=== PATIENT | female | born 1950 | race Caucasian/White ===

== ENCOUNTER → 2019-03-17 13:46 | Outpatient (BNVA) | payer MEDICARE, OTHER, SELFPAY | PROVIDERS: Family Provider Family Medicine; PCP Family Medicine; Visit Provider Internal Medicine Rheumatology | DX: M35.9 Systemic involvement of connective tissue, unspecified (principal); M05.79 Rheumatoid arthritis with rheumatoid factor of multiple sites without organ or systems involvement; Z79.899 Other long term (current) drug therapy; F32.9 Major depressive disorder, single episode, unspecified | CPT/HCPCS: 36415; 80053; 85007; 85027; 99214 ==

== ENCOUNTER → 2019-05-18 12:55 | Outpatient (BNVA) | payer MEDICARE, OTHER, SELFPAY | PROVIDERS: Family Provider Family Medicine; PCP Family Medicine; Visit Provider Internal Medicine Rheumatology | DX: M06.09 Rheumatoid arthritis without rheumatoid factor, multiple sites (principal); Z79.899 Other long term (current) drug therapy | CPT/HCPCS: 36415; 80076; 82565; 85025; 85651; 86140 ==

== ENCOUNTER → 2019-05-18 13:14 | Outpatient (BNVA) | payer MEDICARE, OTHER, SELFPAY | PROVIDERS: Family Provider Family Medicine; PCP Family Medicine; Visit Provider Internal Medicine Rheumatology | DX: M06.09 Rheumatoid arthritis without rheumatoid factor, multiple sites (principal); Z79.899 Other long term (current) drug therapy | CPT/HCPCS: 85025 ==

== ENCOUNTER → 2019-08-31 09:29 | Outpatient (BNVA) | payer MEDICARE, OTHER, SELFPAY | PROVIDERS: Family Provider Family Medicine; PCP Family Medicine; Visit Provider Internal Medicine | DX: M35.9 Systemic involvement of connective tissue, unspecified (principal); D89.9 Disorder involving the immune mechanism, unspecified; M18.12 Unilateral primary osteoarthritis of first carpometacarpal joint, left hand; M19.011 Primary osteoarthritis, right shoulder; Z51.81 Encounter for therapeutic drug level monitoring | CPT/HCPCS: 36415; 82565; 85025; 85651; 86140 ==

== ENCOUNTER → 2019-10-29 13:19 | Outpatient (BNVA) | payer MEDICARE, OTHER, SELFPAY | PROVIDERS: Family Provider Family Medicine; Visit Provider Internal Medicine | DX: M35.9 Systemic involvement of connective tissue, unspecified (principal); R06.00 Dyspnea, unspecified; M18.12 Unilateral primary osteoarthritis of first carpometacarpal joint, left hand | CPT/HCPCS: 99214 ==

== ENCOUNTER → 2020-01-26 14:45 | Outpatient (BNVA) | payer MEDICARE, OTHER, SELFPAY | PROVIDERS: Family Provider Family Medicine; Visit Provider Nurse Practitioner Family | DX: Z20.828 Contact with and (suspected) exposure to other viral communicable diseases (principal) | CPT/HCPCS: 87635 ==

== ENCOUNTER → 2020-02-24 14:47 | Outpatient (BNVA) | payer MEDICARE, OTHER, SELFPAY | PROVIDERS: Family Provider Family Medicine; PCP Family Medicine; Visit Provider Internal Medicine | DX: M35.9 Systemic involvement of connective tissue, unspecified (principal); Z51.81 Encounter for therapeutic drug level monitoring; Z11.59 Encounter for screening for other viral diseases; Z11.1 Encounter for screening for respiratory tuberculosis; M15.9 Polyosteoarthritis, unspecified; R06.00 Dyspnea, unspecified; R53.83 Other fatigue | CPT/HCPCS: 99214 ==

== ENCOUNTER 2020-04-12 12:18 | Outpatient (CLI) | payer MEDICARE, OTHER, SELFPAY ==
--- NOTE | 2020-04-12 12:34 | XR_ITS ---
WS: [id number] Exam: XR hand RT 2V [id number] Date/Time of Exam: 04/12/2020 12:34 PM Reason For Exam: M35.9 - Systemic involvement of connective tissue, unspecified Comparison 12/17/2017. No acute fracture or dislocation. Degenerative changes of the IP joints and MP joints. Moderately adv anced DJD at the carpometacarpal joint of the thumb. No cortical erosions or periarticular deminerali zation. No soft tissue foreign bodies are seen. Remote fracture of the ulnar styloid. XR/XR hand RT 2V [id number] IMPRESSION: 1. Degenerative changes as above. 2. No fracture or dislocation. 3. Similar findings noted on the last exam.
--- NOTE | 2020-04-12 12:34 | XR_ITS ---
WS: [id number] Exam: XR hand LT 2V [id number] Date/Time of Exam: 04/12/2020 12:34 PM Reason For Exam: M35.9 - Systemic involvement of connective tissue, unspecified Comparison 12/17/2017. No fracture or dislocation. Degenerative changes in the IP and MP joints. Moderately advanced degener ative change at the carpometacarpal joint of the thumb. No periarticular demineralization or cortical erosion noted. Similar findings on the last exam. XR/XR hand LT 2V [id number] IMPRESSION: 1. Degenerative changes as detailed above. 2. No fracture or dislocation.
[2020-04-12 13:46] LABS: Basophils % 0.3 %; Eosinophils # 0.1 10^3/uL (0.0-0.8); Eosinophils % 1.8 %; Hematocrit 44.9 % (37.0-47.0); Hemoglobin 15.5 g/dL (11.5-15.3); Lymphocytes # 1.8 10^3/uL (0.8-4.8); Lymphocytes % 27.9 %; Mean Corpuscular HGB Conc 34.5 g/dL (30.0-36.0); Mean Corpuscular Hemoglobin 32.7 pg (28.0-34.0); Mean Corpuscular Volume 94.7 fL (81-99); Mean Platelet Volume 10.6 fL (7.4-10.4); Monocytes # 0.5 10^3/uL (0.2-0.9); Monocytes % 7.3 %; Neutrophils # 3.91 10^3/uL (1.8-7.7); Neutrophils % 62.4 %; Nucleated Red Blood Cells % 0 %; Platelet Count 290 10^3/cmm (130-400); Red Blood Count 4.74 10^6/uL (4.1-5.3); Red Cell Distribution Width 11.7 % (12.1-15.1); White Blood Count 6.3 10^3/uL (4.0-10.0)
[2020-04-12 14:15] LABS: Alanine Aminotransferase 41 U/L (0-33); Albumin Level 4.2 g/dL (3.5-5.2); Alkaline Phosphatase 70 IU/L (35-105); Anion Gap 18.4 (5-19); Aspartate Amino Transferase 43 U/L (0-32); Blood Urea Nitrogen 15 mg/dL (8-23); Calcium 9.8 mg/dL (8.5-10.5); Carbon Dioxide 24 mmol/L (22-29); Chloride 98 mmol/L (98-107); Globulin 3.5 g/dL (1.3-4.6); Glomerular Filtration Rate 54.8 mL/min (90-130); Glucose 277 mg/dL (65-115); Iron 139 ug/dL (37-145); Osmolality Calculated 293 mOsm/kg (285-295); Potassium 4.4 mmol/L (3.5-5.1); Sodium 136 mmol/L (136-145); Total Bilirubin 0.7 mg/dL (0.15-1.2); Total Protein 7.7 g/dL (6.6-8.7)
[2020-04-12 15:57] LABS: Hepatitis B Core AB, Total Non-Reactive (Nonreactive); Hepatitis B Surface Antigen Non-Reactive (Nonreactive); Hepatitis C Virus Antibody Non-Reactive (Nonreactive)
[2020-04-13 11:17] LABS: COMPLEMENT COMPONENT C3C 181 mg/dL (83-193); COMPLEMENT COMPONENT C4C 38 mg/dL (15-57)
[2020-04-13 13:22] LABS: CENTROMERE B ANTIBODY <1.0 NEG AI (<1.0 NEG); JO-1 ANTIBODY <1.0 NEG AI (<1.0 NEG); RNP ANTIBODY <1.0 NEG AI (<1.0 NEG); SCL-70 ANTIBODY <1.0 NEG AI (<1.0 NEG); SJOGREN'S ANTIBODY (SS-A) <1.0 NEG AI (<1.0 NEG); SM ANTIBODY <1.0 NEG AI (<1.0 NEG); SS-B <1.0 NEG AI (<1.0 NEG)
[2020-04-13 14:22] LABS: ANA SCREEN, IFA NEGATIVE (NEGATIVE)
[2020-04-13 14:57] LABS: Cyclic Citrullinated Peptide <16 UNITS; THYROID PEROXIDASE ANTIBODIES 2 IU/mL (<9)
[2020-04-13 17:27] LABS: COMPLEMENT, TOTAL (CH50) >60 U/mL (31-60)
[2020-04-14 15:32] LABS: Quantiferon Mitogen 9.35 IU/mL; Quantiferon Nil 0.41 IU/mL; Quantiferon Plus TB1 0.17 IU/mL; Quantiferon Plus TB2 0.24 IU/mL; Quantiferon TB Gold NEGATIVE (NEGATIVE)
[2020-04-15 16:48] LABS: HLA-B27 NEGATIVE (NEGATIVE)
[2020-04-17 23:07] LABS: DNA AB (DS) CRITHIDIA,IFA NEGATIVE (NEGATIVE)
== END 2020-04-12 12:19 | disposition home or self-care (01) ==
PROVIDERS: PCP Family Medicine; Visit Provider Internal Medicine
DX: Z51.81 Encounter for therapeutic drug level monitoring (principal); D89.9 Disorder involving the immune mechanism, unspecified; M18.12 Unilateral primary osteoarthritis of first carpometacarpal joint, left hand; R06.00 Dyspnea, unspecified; D86.9 Sarcoidosis, unspecified; M32.9 Systemic lupus erythematosus, unspecified; D50.0 Iron deficiency anemia secondary to blood loss (chronic); R53.83 Other fatigue
CPT/HCPCS: 36415; 73120; 80053; 83540; 84443; 85025; 86160; 86162; 86235; 86255; 86376; 86431; 86480; 86704; 86803; 86812; 87340

== ENCOUNTER 2021-10-06 09:58 | Outpatient (RCR) | payer MEDICARE, OTHER, SELFPAY | END 2021-10-18 23:59 | disposition home or self-care (01) | LOC: SPT 09:58 | PROVIDERS: PCP Family Medicine; Visit Provider Internal Medicine | DX: R26.89 Other abnormalities of gait and mobility (principal); R42 Dizziness and giddiness | CPT/HCPCS: 95992; 97162 ==

== ENCOUNTER 2024-02-10 10:19 | Outpatient (CLI) | payer MEDICARE, OTHER, SELFPAY ==
[2024-02-10 10:47] LABS: Basophils % 0.7 %; Eosinophils # 0.3 10^3/uL (0.0-0.8); Eosinophils % 4.6 %; Hematocrit 40.9 % (36-47); Lymphocytes # 1.9 10^3/uL (0.8-4.8); Lymphocytes % 33.5 %; Mean Corpuscular HGB Conc 33.5 g/dL (30-55); Mean Corpuscular Hemoglobin 30.5 pg (27-33); Mean Corpuscular Volume 91.1 fl (85-98); Mean Platelet Volume 10.1 fL (7.4-10.4); Monocytes # 0.6 10^3/uL (0.2-0.9); Monocytes % 10.5 %; Neutrophils # 2.84 10^3/uL (1.8-7.7); Neutrophils % 50.3 %; Nucleated Red Blood Cells % 0 %; Platelet Count 257 10^3/cmm (157-399); Red Blood Count 4.49 10^6/uL (3.85-5.65); Red Cell Distribution Width 12.5 % (12.1-15.1); White Blood Count 5.64 10^3/uL (3.29-11.43)
[2024-02-10 11:12] LABS: Albumin Level 3.8 g/dL (3.5-5.2); Alkaline Phosphatase 92 U/L (35-105); Blood Urea Nitrogen 17 mg/dL (8-23); C Reactive Protein 4.7 mg/L (0.0-4.9); Calcium 9.3 mg/dL (8.5-10.5); Carbon Dioxide 23 mmol/L (22-29); Chloride 100 mmol/L (98-107); Globulin 3.3 g/dL (1.3-4.6); Glucose 205 mg/dL (65-115); Osmolality Calculated 291 mOsm/kg (285-295); Sodium 137 mmol/L (136-145); Total Bilirubin 0.2 mg/dL (0.15-1.2); Total Protein 7.1 g/dL (6.6-8.7)
[2024-02-10 11:17] LABS: Alanine Aminotransferase 23 U/L (0-33); Anion Gap 18.6 (5-19); Aspartate Amino Transferase 27 U/L (0-32)
[2024-02-10 11:18] LABS: Potassium 4.6 mmol/L (3.5-5.1)
== END 2024-02-10 10:20 | disposition home or self-care (01) ==
LOC: LAB 10:21
PROVIDERS: PCP Family Medicine; Visit Provider Internal Medicine
DX: G93.41 Metabolic encephalopathy (principal)
CPT/HCPCS: 80053; 85025; 86140

== ENCOUNTER 2024-02-28 22:24 | Inpatient (IN) | payer MEDICARE, OTHER, SELFPAY ==
[2024-02-28 22:26] VITALS: BP 118/57; PULSE 82; RESP 20; TEMP 36.8; O2SAT 93; BMI 34.3
--- NOTE | 2024-02-28 22:53 | CTR_ITS ---
PROCEDURE INFORMATION: Exam: CT Head Without Contrast Exam date and time: 02/28/2024 11:00 PM Age: 73 years old Clinical indication: Altered mental status/memory loss; Patient HX: EMS arrival for AMS. Patient somewhat confused. Per EMS, recent multiple medication changes. ; Additional info: Altered ms TECHNIQUE: Imaging protocol: Computed tomography of the head without contrast. Radiation optimization: All CT scans at this facility use at least one of these dose optimization techniques: automated exposure control; mA and/or kV adjustment per patient size (includes targeted exams where dose is matched to clinical indication); or iterative reconstruction. COMPARISON: CT head wo con* [id number] 12/17/2017 3:43 PM RADIATION DOSE METRICS: Total DLP (mGy-cm): 1069.28 FINDINGS: Brain: Advanced periventricular white matter changes likely related to chronic ischemic small vessel disease. No intracranial mass, hemorrhage or recent infarct. Cerebral ventricles: No ventriculomegaly. Paranasal sinuses: Visualized sinuses are unremarkable. No fluid levels. Mastoid air cells: Visualized mastoid air cells are well aerated. Bones: Unremarkable. No acute fracture. Soft tissues: Unremarkable. CT/CT head wo con* [id number] IMPRESSION: No acute intracranial abnormality.
[2024-02-28 23:25] LABS: Basophils % 0.3 %; Eosinophils # 0.2 10^3/uL (0.0-0.8); Eosinophils % 2.3 %; Hematocrit 40.3 % (36-47); Lymphocytes # 1.6 10^3/uL (0.8-4.8); Lymphocytes % 25.5 %; Mean Corpuscular HGB Conc 33.7 g/dL (30-55); Mean Corpuscular Hemoglobin 30.9 pg (27-33); Mean Corpuscular Volume 91.6 fl (85-98); Mean Platelet Volume 9.7 fL (7.4-10.4); Monocytes # 0.6 10^3/uL (0.2-0.9); Monocytes % 9.3 %; Neutrophils # 3.99 10^3/uL (1.8-7.7); Neutrophils % 62.1 %; Nucleated Red Blood Cells % 0 %; Platelet Count 249 10^3/cmm (157-399); Red Cell Distribution Width 12.3 % (12.1-15.1); White Blood Count 6.43 10^3/uL (3.29-11.43)
[2024-02-28 23:55] LABS: Acetaminophen < 5.0 ug/mL (10-30); Alanine Aminotransferase 21 U/L (0-33); Albumin Level 3.8 g/dL (3.5-5.2); Alkaline Phosphatase 94 U/L (35-105); Anion Gap 18.4 (5-19); Aspartate Amino Transferase 21 U/L (0-32); Blood Urea Nitrogen 22 mg/dL (8-23); Calcium 8.7 mg/dL (8.5-10.5); Carbon Dioxide 23 mmol/L (22-29); Chloride 100 mmol/L (98-107); Creatinine Clr Calc Pharmacy 72.8233; Globulin 3.1 g/dL (1.3-4.6); Glucose 148 mg/dL (65-115); Osmolality Calculated 292 mOsm/kg (285-295); Potassium 3.4 mmol/L (3.5-5.1); Salicylate < 0.3 mg/dL (3-10); Sodium 138 mmol/L (136-145); Thyroid Stimulating Hormone 7.78 uIU/mL (0.27-4.20); Total Bilirubin 0.3 mg/dL (0.15-1.2); Total Protein 6.9 g/dL (6.6-8.7)
[2024-02-28 23:57] VITALS: BP 109/60; PULSE 80; RESP 23; O2SAT 90
[2024-02-29] VITALS (33 sets, daily range): BP systolic 97–155; BP diastolic 50–88; PULSE 72–82; RESP 15–30; TEMP 36.6–36.9; O2SAT 90–96
[2024-02-29 01:22] LABS: Bilirubin Urine Negative (Negative); Blood Urine Negative (Negative); Glucose Urine UA Negative (Normal); Ketones Urine Trace (Negative); Leukocyte Esterase Urine 1+ (Negative); Nitrate Urine Negative (Negative); Protein Urine 1+ (Negative); Urine Appearance Clear (CLEAR); Urine Color Yellow (Yellow); pH Urine 5.5 (5-7)
[2024-02-29 01:25] LABS: Add Urine Microscopic? YES; Bacteria Urine None Seen /hpf; Hyaline Casts Urine 2.05 /lpf; RBC Urine 0-2 /hpf (0-2); Universal Test for UA Present (0); WBC Urine 21-50 /hpf (0-5)
[2024-02-29 01:29] LABS: Amphetamines Screen Urine Negative (Negative); Barbiturates Screen Urine Negative (Negative); Benzodiazepines Screen Urine Negative (Negative); Cocaine Screen Urine Negative (Negative); Opiate Screen Urine Negative (Negative); PCP Screen Urine Negative (Negative); THC Screen Urine Negative (Negative)
[2024-02-29 01:35] LABS: Add Urine Culture? No; Mucus Urine TRACE /hpf
--- NOTE | 2024-02-29 03:57 | CTR_ITS ---
PROCEDURE INFORMATION: Exam: CT Chest With Contrast; Diagnostic Exam date and time: 02/29/2024 4:24 AM Age: 73 years old Clinical indication: Shortness of breath; Prior surgery; Surgery date: 6+ months; Surgery type: Cervical fusion. Gb. Hysterectomy. Patient HX: PT SOB. Patient being treated vis iv antibiotics for UTI. ; Additional info: Altered mental status TECHNIQUE: Imaging protocol: Diagnostic computed tomography of the chest with contrast. Radiation optimization: All CT scans at this facility use at least one of these dose optimization techniques: automated exposure control; mA and/or kV adjustment per patient size (includes targeted exams where dose is matched to clinical indication); or iterative reconstruction. Contrast material: OMNI 350; Contrast volume: 100 ml; Contrast route: INTRAVENOUS (IV); COMPARISON: CR XR chest 2V* [id number] 04/25/2018 7:33 AM RADIATION DOSE METRICS: Total DLP (mGy-cm): 2479.52 FINDINGS: Tubes, catheters and devices: Peripherally inserted right-sided central venous line terminating at the distal superior vena cava. Lungs: Large right lower lobe granuloma. Scattered atelectasis/scarring sub 6 mm nodule is noted in the right middle lobe, new from 09/19/2017 incompletely evaluated anterior cervical spine hardware. Pleural spaces: Unremarkable. No pneumothorax. No pleural effusion. Heart: Aortic valve and annulus calcifications which can be seen in aortic stenosis. Coronary arteries: Heavy coronary calcified atherosclerotic disease. Lymph nodes: Calcified right hilar lymph nodes. Vasculature: Atherosclerotic disease of the intrathoracic aorta, calcified and noncalcified extending into the major superior branches. Bones/joints: Degenerative changes of the visualized osseous structures. Old fracture deformities of the anterior left 6th and 7th ribs. Soft tissues: Unremarkable. PROCEDURE INFORMATION: Exam: CT Abdomen And Pelvis With Contrast Exam date and time: 02/29/2024 4:24 AM Age: 73 years old Clinical indication: Shortness of breath; Prior surgery; Surgery date: 6+ months; Surgery type: Cervical fusion. Gb. Hysterectomy. Patient HX: PT SOB. Patient being treated vis iv antibiotics for UTI. ; Additional info: Altered mental status TECHNIQUE: Imaging protocol: Computed tomography of the abdomen and pelvis with contrast. Radiation optimization: All CT scans at this facility use at least one of these dose optimization techniques: automated exposure control; mA and/or kV adjustment per patient size (includes targeted exams where dose is matched to clinical indication); or iterative reconstruction. Contrast material: OMNI 350; Contrast volume: 100 ml; Contrast route: INTRAVENOUS (IV); COMPARISON: CT abdomen pelvis wo con [id number] 09/19/2017 10:02 PM RADIATION DOSE METRICS: Total DLP (mGy-cm): 2479.52 FINDINGS: Liver: Normal. No mass. Gallbladder and biliary ducts: Status post cholecystectomy. Pancreas: Mild pancreatic atrophy. Spleen: Normal. No splenomegaly. Adrenal glands: Normal. No mass. Kidneys and ureters: Lobulated contours of the kidneys, focus of left lower posterior renal cortical atrophy with associated calyceal calcification. Stomach and bowel: Kspc-nb-[id number] colonic stool burden. Appendix: No evidence of appendicitis. Intraperitoneal space: Multifocal omental infarcts, appear chronic. Vasculature: Atherosclerotic disease, severe, extends into the lower abdominal branches. Lymph nodes: Unremarkable. No enlarged lymph nodes. Urinary bladder: Asymmetric thickening of the lateral bladder small with trabeculation. Mucosa of the bladder appears enhancing. Reproductive: Status post hysterectomy. Bones/joints: Degenerative changes of the visualized osseous structures. No acute or aggressive osseous abnormality. Soft tissues: Unremarkable. CT/CT chest abdpel w/*[id number] IMPRESSION: 1. No acute thoracic findings. 2. Findings indicative of aortic stenosis, correlate clinically and with echocardiogram. 3. Right middle lobe micronodule, optional CT in 12 months to assess for stability can be obtained, especially in the setting of high-risk behaviors. IMPRESSION: Findings consistent with acute on chronic cystitis. Asymmetric thickening of the bladder wall is likely secondary to some degree of chronic inflammation/outlet obstruction, difficult to exclude plaque-like neoplasm. Correlate clinically.
[2024-02-29] MEDS: iohexol 350 mg/mL 500 mL Btl (per mL) IV (04:36)
[2024-02-29 04:44] LABS: Vitamin B12 428 pg/mL (232-1245)
--- NOTE | 2024-02-29 05:09 | ED_ITS ---
HPI - Altered Mental Status 2 General: Chief Complaint: Altered Mental Status Stated Complaint: AMS Time Seen by Provider: 02/28/24 22:26 History of Present Illness: This patient is a 73-year-old white female who was brought in by EMS for evaluation of confusion/altered mental status. When I tried to obtain a history from the patient she told me that she was told she was going to see a psychologist here. I told her I was the ER physician and asked her how I could help her. She then told me that I was in a major break-in and [place]. Many people were killed . I did have the nurse contact the patient's who was at home to get history since the patient cannot give me any further history. He told her that his has been confused and hallucinating for a week and has been getting worse. She has been evaluated in the clinic. She is currently being treated for recurrent urinary tract infection with meropenem through a PICC line in the right arm. He also states that she was placed in the retirement for about 3 weeks not too long ago. She does have a history of arthritis, depression, diabetes and the recurrent urinary tract infections. Associated symptoms: Reports delusions Related Data Home Medications Medication Instructions Recorded Confirmed albuterol sulfate 2.5 mg/3 mL 2.5 mg inhalation Q4H PRN 03/17/19 02/24/20 (0.083 %) solution for nebulization fluticasone propionate 50 1 spray intranasal QDAY 03/17/19 02/24/20 mcg/actuation nasal spray,suspension pravastatin 20 mg tablet 20 mg PO QDAY 03/17/19 02/24/20 promethazine 25 mg tablet 25 mg PO .EVERY 12 HOURS PRN 03/17/19 02/24/20 valsartan 160 mg tablet 160 mg PO QDAY 03/17/19 02/24/20 venlafaxine 150 mg 150 mg PO QAM 03/17/19 02/24/20 capsule,extended release 24 hr Lactobacillus cap PO 10/29/19 02/24/20 acidophilus-Bifidobac.animalis 2 billion cell capsule (One-A-Day Trubiotics) acetaminophen 500 mg tablet 500 mg PO Q6H PRN 10/29/19 02/24/20 (Tylenol Extra Strength) aspirin 81 mg tablet,delayed 81 mg PO DAILY 10/29/19 02/24/20 release (Adult Aspirin Regimen) biotin 5 mg capsule 5 mg PO DAILY 10/29/19 02/24/20 wwvjamiu-xvz-xrhqq acid 0.4 1 tab PO DAILY 10/29/19 02/24/20 mg-lycopene 300 mcg-lutein 250 mcg tablet (Complete Multivitamin Adult 50 Plus) vit no.82-iron fumarate tab PO 10/29/19 02/24/20 27 mg-folate comb no.2 1 mg tablet Previous Rx's Medication Instructions Recorded prednisone 5 mg tablet See Rx Instructions PO QDAY PRN 07/31/19 FLARE #30 tabs prednisone 5 mg tablet See Rx Instructions PO DAILY #60 10/29/19 tabs albuterol sulfate 90 mcg/actuation 2 puff inhalation Q6H PRN 01/26/20 aerosol inhaler (ProAir HFA) shortness of breath or wheezing #8.5 grams hydroxychloroquine 200 mg tablet 200 mg PO BID #60 tabs 02/10/20 prednisone 5 mg tablet See Rx Instructions PO DAILY #60 02/24/20 tabs Allergies Allergy/AdvReac Type Severity Reaction Status Date / Time codeine AdvReac Severe ALTERED Verified 02/28/24 22:35 MENTAL STATUS shellfish derived AdvReac Unknown VOMITING Verified 02/28/24 22:35 AND DIARRHEA Review of Systems 2 General: Reports: ROS unobtainable due to mental status PFSH ED 2 PFSH: Medical History Dyspnea Immunosuppression Osteoarthritis of carpometacarpal joint of left thumb Osteoarthritis of shoulders, bilateral Undifferentiated connective tissue disease Surgical History History of bilateral knee arthroplasty Social History Smoking and tobacco/nicotine status: never used tobacco/nicotine Alcohol intake: never Physical Exam 2 Const: COMMON NORMALS: no acute distress GENERAL APPEARANCE: cooperative and comfortable HENMT: COMMON NORMALS: normocephalic, atraumatic, Normal nasal mucous membranes and turbinates present, moist oral mucous membranes and oropharynx normal HEAD & SCALP: normal to inspection, normocephalic and atraumatic F RUSLAN & SINUS: normal facial exam NOSE: Normal nasal mucous membranes and turbinates present Eye: COMMON NORMALS: Equal, round and reactive pupils present, EOMs intact bilaterally and conjunctivae normal GENERAL EYE: appearance normal, both eyes and all related structures CONJUNCTIVA: Yes conjunctivae normal PUPIL: Yes Equal, round and reactive pupils present Neck/C-Spine: COMMON NORMALS: supple and no JVD Chest: COMMONS NORMALS: normal inspection of the chest Resp: COMMON NORMALS: normal respiratory effort and clear to auscultation bilaterally AUSCULTATION: clear to auscultation bilaterally Cardio: COMMON NORMALS: no JVD, regular rate, regular rhythm, No gallops present (Cardio), No murmurs present (Cardio) and No rub (Cardio) RATE: r egular rate RHYTHM: regular rhythm GI: COMMON NORMALS: Normal to inspection, nondistended, normoactive bowel sounds present, Soft to palpation and non-tender AUSCULTATION: Yes normoactive bowel sounds PALPATION: Yes Soft to palpation : COMMON NORMALS: Yes no CVA tenderness BLADDER/KIDNEY EXAM: Yes no CVA tenderness Back/Pelvis: COMMON NORMALS: no CVA tenderness and thoracic and lumbar spine normal to inspection Extremity: COMMON NORMALS: normal to inspection Neuro: COMMON NORMALS: CN's II-XII intact bilaterally Psych: COMMON NORMALS: cooperative and speech normal SPEECH: Yes normal speech MOOD & AFFECT: Yes euthymic mood THOUGHT PROCESS: confused T HOUGHT CONTENT: Yes delusions and Yes Hallucination(s) present A TTENTION/CONCENTRATION: Yes attention grossly intact MEMORY/COGNITION: Yes memory grossly impaired INSIGHT: Poor insight present (Psych) JUDGEMENT: L imited judgement present (Psych) Skin: COMMON NORMALS: no rashes or lesions noted, turgor normal and no jaundice GENERAL SKIN EXAM: no rashes or lesions noted and turgor normal O THER: Skin around the PICC line was not erythematous. Course 2 Vital Signs: Vital signs: Vital Signs Temperature 98.4 F 02/29/24 01:47 Pulse Rate 78 02/29/24 04:00 Respiratory Rate 24 H 02/29/24 04:00 Blood Pressure 128/62 02/29/24 04:00 Pulse Oximetry 93 02/29/24 04:00 Oxygen Delivery Me thod Room Air 02/28/24 22:26 MDM - Altered Mental Status Medical Decision Making Head CT was read by the radiologist as normal. CBC and CMP were normal. TSH elevated at 7.8. Acetaminophen and salicylate levels were 0. Urine analysis was contaminated. Urine drug screen negative. I am not sure what is causing this patient's altered mental status. She is afebrile and her vital signs are stable. I discussed the case with Dr. Garcia. He would like a vitamin B12 level added as well as CT scan of the chest abdomen pelvis. Those results are back now. Vitamin B12 level is 428. CT scan of the chest abdomen pelvis was read by the radiologist as nothing acute. She does have thickening of the bladder wall consistent with chronic inflammation/infection. I contacted Dr. Garcia. Patient will be admitted for further workup. Lab Data 02/28/24 23:18 02/28/24 23:[address] 02/28/24 22:53 IMPRESSION: No acute intracranial abnormality. Chest/Abdomen/Pelvis CT 02/29/24 03:57 IMPRESSION: 1. No acute thoracic findings. 2. Findings indicative of aortic stenosis, correlate clinically and with echocardiogram. 3. Right middle lobe micronodule, optional CT in 12 months to assess for stability can be obtained, especially in the setting of high-risk behaviors. IMPRESSION: Findings consistent with acute on chronic cystitis. Asymmetric thickening of the bladder wall is likely secondary to some degree of chronic inflammation/outlet obstruction, difficult to exclude plaque-like neoplasm. Correlate clinically. Laboratory Results WBC 6.43 10^3/uL (3.29-11.43) 02/28/24 23:18 RBC 4.40 10^6/uL (3.85-5.65) 02/28/24 23:18 Hgb 13.60 g/dL (11.27-16.99) 02/28/24 23:18 Hct 40.3 % (36-47) 02/28/24 23:18 MCV 91.6 fl (85-98) 02/28/24 23:18 MCH 30.9 pg (27-33) 02/28/24 23:18 MCHC 33.7 g/dL (30-55) 02/28/24 23:18 RDW 12.3 % (12.1-15.1) 02/28/24 23:18 Plt Count 249 10^3/cmm (157-399) 02/28/24 23:18 MPV 9.7 fL (7.4-10.4) 02/28/24 23:18 Neut % (Auto) 62.1 % 02/28/24 23:18 Lymph % (Auto) 25.5 % 02/28/24 23:18 [place] % (Auto) 9.3 % 02/28/24 23:18 Eos % (Auto) 2.3 % 02/28/24 23:18 Baso % (Auto) 0.3 % 02/28/24 23:18 Neut # (Auto) 3.99 10^3/uL (1.8-7.7) 02/28/24 23:18 Lymph # (Auto) 1.6 10^3/uL (0.8-4.8) 02/28/24 23:18 [place] # (Auto) 0.6 10^3/uL (0.2-0.9) 02/28/24 23:18 Eos # (Auto) 0.2 10^3/uL (0.0-0.8) 02/28/24 23:18 Baso # (Auto) 0.0 10^3/uL (0.0-0.1) 02/28/24 23:18 Nucleated RBC % (auto) 0 % 02/28/24 23:18 Nucleated RBCs # 0.0 /100WBC 02/28/24 23:18 Sodium 138 mmol/L (136-145) 02/28/24 23:18 Potassium 3.4 mmol/L (3.5-5.1) L 02/28/24 23:18 Chloride 100 mmol/L (98-107) 02/28/24 23:18 Carbon Dioxide 23 mmol/L (22-29) 02/28/24 23:18 Anion Gap 18.4 (5-19) 02/28/24 23:18 BUN 22 mg/dL (8-23) 02/28/24 23:18 Creatinine 0.7 mg/dL (0.5-0.9) 02/28/24 23:18 GFR Calculation Not Reportable 02/28/24 23:18 Glucose 148 mg/dL (65-115) H 02/28/24 23:18 Calculated Osmolality 292 mOsm/kg (285-295) 02/28/24 23:18 Calcium 8.7 mg/dL (8.5-10.5) 02/28/24 23:18 Total Bilirubin 0.3 mg/dL (0.15-1.2) 02/28/24 23:18 AST 21 U/L (0-32) 02/28/24 23:18 ALT 21 U/L (0-33) 02/28/24 23:18 Alkaline Phosphatase 94 U/L (35-105) 02/28/24 23:18 Total Protein 6.9 g/dL (6.6-8.7) 02/28/24 23:18 Albumin 3.8 g/dL (3.5-5.2) 02/28/24 23:18 Globulin 3.1 g/dL (1.3-4.6) 02/28/24 23:18 Vitamin B12 428 pg/mL (232-1245) 02/28/24 23:18 TSH 7.78 uIU/mL (0.27-4.20) H 02/28/24 23:18 Urine Color Yellow (Yellow) 02/29/24 01:10 Urine Appearance Clear (CLEAR) 02/29/24 01:10 Urine pH 5.5 (5-7) 02/29/24 01:10 Ur Specific [place] 1.020 (1.005-1.030) 02/29/24 01:10 Urine Protein 1+ (Negative) A 02/29/24 01:10 Urine Glucose (UA) Negative (Normal) 02/29/24 01:10 Urine Ketones Trace (Negative) 02/29/24 01:10 Urine Blood Negative (Negative) 02/29/24 01:10 Urine Nitrate Negative (Negative) 02/29/24 01:10 Urine Bilirubin Negative (Negative) 02/29/24 01:10 Urine Urobilinogen 1.0 mg/dL (Negative) 02/29/24 01:10 Ur Leukocyte Esterase 1+ (Negative) A 02/29/24 01:10 Urine RBC 0-2 /hpf (0-2) 02/29/24 01:10 Urine WBC 21-50 /hpf (0-5) H 02/29/24 01:10 Ur Squamous Epith Cells 10-15 /hpf (0-5) H 02/29/24 01:10 Amorphous Sediment Not Reportable 02/29/24 01:10 Urine Bacteria None seen /hpf (NONE) 02/29/24 01:10 Hyaline Casts 2.05 /lpf 02/29/24 01:10 Urine Mucus Trace /hpf 02/29/24 01:10 Salicylates < 0.3 mg/dL (3-10) L 02/28/24 23:18 Urine Opiates Screen Negative ng/mL (Negative) 02/29/24 01:10 Acetaminophen < 5.0 ug/mL (10-30) L 02/28/24 23:18 Ur Barbiturates Screen Negative ng/mL (Negative) 02/29/24 01:10 Ur Phencyclidine Scrn Negative ng/mL (Negative) 02/29/24 01:10 Ur Amphetamines Screen Negative ng/mL (Negative) 02/29/24 01:10 U Benzodiazepines Scrn Negative ng/mL (Negative) 02/29/24 01:10 Urine Cocaine Screen Negative ng/mL (Negative) 02/29/24 01:10 U Marijuana (THC) Screen Negative ng/mL (Negative) 02/29/24 01:10 All radiology interpretation(s) finalized by discharge Discharge Plan Discharge Condition: Stable Prescriptions: No Action albuterol sulfate 2.5 mg /3 mL (0.083 %) solution for nebulization 2.5 mg INHALATION Q4H PRN pravastatin 20 mg tablet 20 mg PO QDAY valsartan 160 mg tablet 160 mg PO QDAY venlafaxine 150 mg capsule,extended release 24hr 150 mg PO QAM promethazine 25 mg tablet 25 mg PO .EVERY 12 HOURS PRN fluticasone propionate 50 mcg/actuation spray,suspension 1 spray INTRANASAL QDAY albuterol sulfate [ProAir HFA] 90 mcg/actuation HFA aerosol inhaler 2 puff inhalation Q6H PRN (Reason: shortness of breath or wheezing) Qty: 8.5 0RF hydroxychloroquine 200 mg tablet 200 mg PO BID Qty: 60 1RF prednisone 5 mg tablet See Rx Instructions PO DAILY Qty: 60 0RF Rx Instructions: 1-2 daily PO daily; aspirin [Adult Aspirin Regimen] 81 mg tablet,delayed release (DR/EC) 81 mg PO DAILY acetaminophen [Tylenol Extra Strength] 500 mg tablet 500 mg PO Q6H PRN no.[id number] no2 27 mg iron- 1 mg tablet PO biotin 5 mg capsule 5 mg PO DAILY One-A-Day Trubiotics 2 billion cell capsule PO Complete MV Adult 50 Plus 0.4-300-250 mg-mcg-mcg tablet 1 tab PO DAILY prednisone 5 mg tablet See Rx Instructions PO DAILY Qty: 60 1RF Rx Instructions: 15mg po qday x 7 days, then 10mg po qday PO daily; prednisone 5 mg tablet See Rx Instructions PO QDAY PRN (Reason: FLARE) Qty: 30 0RF Rx Instructions: 4tabs daily for 3-4 days prn flares PO every day PRN; Referrals: Noemy Garcias MD [Primary Care Provider] - Patient Instructions: Altered Mental Status (ED) Coding Level of Care Code ED Oxygen System Tester for Terry Chaudhari
--- NOTE | 2024-02-29 05:22 | P.HP_ITS ---
Providers/Chief Complaint 2 Primary Care Provider: Noemy Garcias MD Chief Complaint: AMS History of Present Illness Marisa Jackson is a 73 year old female with history of rheumatoid arthritis, sleep apnea, recurrent UTI, has been started on meropenem 02/17, has a right- sided PICC line presented from [facility] with chief complaint of altered mental status. Patient is pleasant but confused. Oriented to herself only. Stating that I should go check on her , she was pointing towards right side of the room and asking me to check on her . She is able to move all of her extremities, is stating that confusion and hallucination has been getting worse for about a week, no reported fever, patient was placed at the shelter couple of weeks ago. Patient is stating that she uses a walker for ambulation but frequently falls. She is not able to tell me her last meal. Clinically looks dehydrated. Not complaining of any active pain. She is not sure why she was sent to the hospital. When I asked her about nausea and vomiting, patient stated that she vomited multiple times and now experiencing loose stools. CBC BMP unremarkable, pyuria noted on UA however not a good sample, CT chest abdomen pelvis consistent with chronic cystitis, patient does not show any sign of meningitis, afebrile hemodynamically stable pleasant and confused NIH 0 AO x 1 I have requested a dose of meropenem 1 g Review of Systems 2 General: Reports: ROS unobtainable due to mental status Medications/Allergies Home Medications Medication Instructions Recorded Confirmed Last Taken Type albuterol sulfate 2.5 mg/3 mL 2.5 mg inhalation Q4H PRN 03/17/19 02/24/20 Unknown History (0.083 %) solution for nebulization fluticasone propionate 50 1 spray intranasal QDAY 03/17/19 02/24/20 Unknown History mcg/actuation nasal spray,suspension pravastatin 20 mg tablet 20 mg PO QDAY 03/17/19 02/24/20 Unknown History promethazine 25 mg tablet 25 mg PO .EVERY 12 HOURS PRN 03/17/19 02/24/20 Unknown History valsartan 160 mg tablet 160 mg PO QDAY 03/17/19 02/24/20 Unknown History venlafaxine 150 mg 150 mg PO QAM 03/17/19 02/24/20 Unknown History capsule,extended release 24 hr prednisone 5 mg tablet See Rx Instructions PO QDAY PRN 07/31/19 02/24/20 Unknown Rx FLARE #30 tabs Lactobacillus cap PO 10/29/19 02/24/20 Unknown History acidophilus-Bifidobac.animalis 2 billion cell capsule (One-A-Day Trubiotics) acetaminophen 500 mg tablet 500 mg PO Q6H PRN 10/29/19 02/24/20 Unknown History (Tylenol Extra Strength) aspirin 81 mg tablet,delayed 81 mg PO DAILY 10/29/19 02/24/20 Unknown History release (Adult Aspirin Regimen) biotin 5 mg capsule 5 mg PO DAILY 10/29/19 02/24/20 Unknown History ppjwhwzg-xsz-auyul acid 0.4 1 tab PO DAILY 10/29/19 02/24/20 Unknown History mg-lycopene 300 mcg-lutein 250 mcg tablet (Complete Multivitamin Adult 50 Plus) prednisone 5 mg tablet See Rx Instructions PO DAILY #60 10/29/19 02/24/20 Unknown Rx tabs vit no.82-iron fumarate tab PO 10/29/19 02/24/20 Unknown History 27 mg-folate comb no.2 1 mg tablet albuterol sulfate 90 mcg/actuation 2 puff inhalation Q6H PRN 01/26/20 02/24/20 Unknown Rx aerosol inhaler (ProAir HFA) shortness of breath or wheezing #8.5 grams hydroxychloroquine 200 mg tablet 200 mg PO BID #60 tabs 02/10/20 02/10/20 Unknown Rx prednisone 5 mg tablet See Rx Instructions PO DAILY #60 02/24/20 02/24/20 Unknown Rx tabs Allergies Allergy/AdvReac Type Severity Reaction Status Date / Time codeine AdvReac Severe ALTERED Verified 02/28/24 22:35 MENTAL STATUS shellfish derived AdvReac Unknown VOMITING Verified 02/28/24 22:35 AND DIARRHEA PFSH Acute 2 PFSH: Medical History (Updated 02/29/24 @ 05:55 by Omid Garcia MD) Carpal tunnel syndrome of left wrist 1994 Encounter for tubal ligation counseling Dyspnea Immunosuppression Osteoarthritis of carpometacarpal joint of left thumb Osteoarthritis of shoulders, bilateral Undifferentiated connective tissue disease Surgical History (Updated 02/29/24 @ 05:55 by Omid Garcia MD) H/O Spinal surgery Hx of cholecystectomy H/O bladder repair surgery H/O lumpectomy BREAST ON LEFT 2001 H/O eye surgery TUMOR REMOVAL 197 H/O tubal ligation History of foot surgery RIGHT 1998 H/O adenoidectomy History of tonsillectomy History of knee replacement LEFT 2001 AND RIGHT 2002 History of bilateral knee arthroplasty Social History Smoking and tobacco/nicotine status: never used tobacco/nicotine Alcohol intake: never Vitals/I&O/Wt Last Vital Signs Temp 98.4 F 02/29/24 01:47 Pulse 78 02/29/24 04:00 Resp 24 H 02/29/24 04:00 BP 128/62 02/29/24 04:00 Pulse Ox 93 02/29/24 04:00 O2 Del Method Room Air 02/28/24 22:26 Weight last 48 hrs Weight 97.976 kg Physical Exam 2 Narrative: Morbidly obese Clinically dehydrated AO x 1 Pleasant but confused GCS 15 Able to move her extremities Abdomen distended nontender Currently on room air S1, S2 Able to follow commands Verbally redirectable Data 02/28/24 23:18 02/28/24 23:18 Micro: Microbiology 02/29/24 05:03 Blood Culture - Preliminary Blood SPECIMEN COLLECTED 02/29/24 05:00 Blood Culture - Preliminary Blood SPECIMEN COLLECTED A&P Assessment and plan (1) Undifferentiated connective tissue disease: (2) Osteoarthritis of shoulders, bilateral: (3) Fatigue: (4) Visual hallucination: (5) Recurrent UTI: Plan Metabolic encephalopathy related to UTI History of recurrent UTI, currently being treated with meropenem for ESBL Review of records revealed patient was started on 02/17 Continue 1 g every 8 hours Repeat blood and urine culture Afebrile No signs of meningitis No signs of stroke Check B12, TSH, free T4 and ammonia level along VBG Head CT unremarkable, onset of dementia? She does have advanced periventricular white matter changes Undifferentiated chronic tissue disorder with underlying rheumatoid arthritis May resume hydroxychloroquine in next 24 hours I do not see any signs of septic joint Sleep apnea: Will start on CPAP, requesting VBG Low normal B12, may benefit from B12 supplementation Abnormal TSH, check free T4 DNR/DNI as per the records Cardiac diet Patient has a right-arm PICC line DVT prophylaxis Lovenox Attestations 2 Medical Necessity Statement*: Anticipating discharge back to shelter within 48 hours Diagnoses Undifferentiated connective tissue disease M35.9 Osteoarthritis of shoulders, bilateral M19.011; M19.012 Fatigue R53.83 Visual hallucination R44.1 Recurrent UTI N39.0
[2024-02-29 05:34] LABS: Erythrocyte Sedimentation Rate 29 mm/hr (0-15)
--- NOTE | 2024-02-29 05:35 | PC.NURSE ---
0300: Patient altered at this time and states to this nurse the baby and the baby is crying as well as this is the room with the snow machine in it . This nurse re-oriented patient, Dr. Polo notified.
[2024-02-29 05:48] LABS: C Reactive Protein 36.3 mg/L (0.0-4.9)
[2024-02-29 05:54] LABS: Free T4 Free Thyroxine 0.88 ng/dL (0.82-1.77); Procalcitonin 0.12 ng/mL (0-0.5)
[2024-02-29 06:15] LABS: Blood Gas Operator Identificat MONRO; Blood Gas Sample Site Not specified; Blood Gas Sample Type Venous; HCO3 VBG 26.8 mmol/L (24-28); Oxygen Device ROOM AIR; PCO2 VBG 41.9 mmHg (41-51); PO2 VBG 48.9 mmHg (25-40); Venous Blood Gas Hematocrit 42.3 % (37-47); pH VBG 7.42 (7.32-7.42)
[2024-02-29] MEDS: meropenem 1,000 mg SDV 1000 MG IVP ×3 (06:39→20:37)
[2024-02-29] MEDS: sodium chloride 0.9% 1,000 ML 100 ML IV (06:40)
[2024-02-29] MEDS: losartan 50 mg Tablet PO (08:35)
[2024-02-29] MEDS: cyanocobalamin 1,000 mcg/mL SDV 1000 MCG IM (08:35)
[2024-02-29] MEDS: aspirin 81 mg EC Tablet PO (08:35)
[2024-02-29] MEDS: enoxaparin 40 mg/0.4 mL Syringe SUBCUT (08:36)
[2024-02-29] MEDS: potassium chloride ER 20 mEq Tablet 40 MEQ PO (08:36)
[2024-02-29] MEDS: sennosides-docusate Tablet 1 TAB PO (08:36)
[2024-02-29 09:04] LABS: Ammonia 24 umol/L (11-51); Estmated Average Glucose 186; Hemoglobin A1C 8.1 % (4.0-6.0)
[2024-02-29 09:04] LABS: Glucose Point of Care 199 mg/dL (70-110)
[2024-02-29] MEDS: insulin lispro 100 unit/1 mL SUBCUT ×2 (09:33→12:36)
--- NOTE | 2024-02-29 11:21 | P.MISC_ITS ---
Miscellaneous Note Purpose of Documentation: overnight labs and H&P reveiwed. Discussed case with [facility] staff. Patient was reportedly at [facility] 3 months ago and had come in for rehab after an extremity fracture. Then was discharged home but continued to have persistent falls at home along with intermittent confusion (suspected dementia) and was taken to [facility] where she was diagnosed with UTI. reportedly had E. coli on urine cx and was recommended 26 day treatment course. Uncertain as to whether this is an ESBl infection or if there was additional blood stream infection. Will request records from [facility]. Continue meropenem 1g iv every 8 hrs in the interim .Resume home medications
[2024-02-29 11:44] LABS: Glucose Point of Care 146 mg/dL (70-110)
[2024-02-29] MEDS: hydroxychloroquine 200 mg Tablet PO ×2 (12:35→23:23)
[2024-02-29 13:03] LABS: C.Diff PCR (Lab) POSITIVE (Negative)
[2024-02-29 13:12] LABS: Carbamazepine Tegretol 4.6 ug/mL (4.0-12.0)
[2024-02-29] MEDS: vancomycin 125 mg Capsule PO ×2 (15:12→20:37)
--- NOTE | 2024-02-29 15:51 | PC.NURSE ---
at approx. 1515 pts granddaughter was entering the room as this nurse was exiting. she asked, what is going on with my grandmother? I asked her name to verify she was listed on the pts hippa, she was not. I educ her that I could not give her any specific information. She states, ok, and enters pts room. Pt is confused unable to verbally get consent from pt. at approx. 1540 pts daughter and granddaughter come to nurses' station. pts daughter asked, are you the nurse taking care of my mother? I state, yes I am. She the asks about specific meds and conditions. I told her unfortunately you are not listed on her hippa, i am unable to give you any specific information. She then asks, who's on it, my dad? I stated, yes, he is. she then asks, why i am not on it, i am every where else? I told her that i wasnt sure but, that i unfortunately could not get verbal consent from the pt either.
[2024-02-29 17:04] LABS: Glucose Point of Care 104 mg/dL (70-110)
[2024-02-29] MEDS: carBAMazepine 200 mg Tablet PO (18:15)
[2024-02-29 20:50] LABS: Glucose Point of Care 243 mg/dL (70-110)
[2024-03-01] VITALS (8 sets, daily range): BP systolic 104–130; BP diastolic 50–73; PULSE 68–76; RESP 14–19; TEMP 36.6–37.2; O2SAT 91–96
[2024-03-01] MEDS: vancomycin 125 mg Capsule PO ×4 (02:38→20:44)
[2024-03-01] MEDS: meropenem 1,000 mg SDV 1000 MG IVP ×3 (05:43→20:44)
[2024-03-01 06:22] LABS: Basophils % 0.2 %; Eosinophils # 0.3 10^3/uL (0.0-0.8); Eosinophils % 6.2 %; Hematocrit 38.7 % (36-47); Lymphocytes # 1.5 10^3/uL (0.8-4.8); Lymphocytes % 31.1 %; Mean Corpuscular HGB Conc 33.6 g/dL (30-55); Mean Corpuscular Hemoglobin 30.7 pg (27-33); Mean Corpuscular Volume 91.5 fl (85-98); Mean Platelet Volume 9.7 fL (7.4-10.4); Monocytes # 0.5 10^3/uL (0.2-0.9); Monocytes % 11.1 %; Neutrophils # 2.48 10^3/uL (1.8-7.7); Neutrophils % 51.2 %; Nucleated Red Blood Cells % 0 %; Platelet Count 231 10^3/cmm (157-399); Red Blood Count 4.23 10^6/uL (3.85-5.65); Red Cell Distribution Width 12.6 % (12.1-15.1); White Blood Count 4.85 10^3/uL (3.29-11.43)
[2024-03-01 06:45] LABS: Anion Gap 15.8 (5-19); Blood Urea Nitrogen 15 mg/dL (8-23); C Reactive Protein 13.6 mg/L (0.0-4.9); Calcium 8.5 mg/dL (8.5-10.5); Carbon Dioxide 23 mmol/L (22-29); Chloride 103 mmol/L (98-107); Creatinine Clr Calc Pharmacy 72.8762; Glucose 140 mg/dL (65-115); Magnesium 2.2 mg/dL (1.7-2.3); Osmolality Calculated 289 mOsm/kg (285-295); Potassium 3.8 mmol/L (3.5-5.1); Sodium 138 mmol/L (136-145)
[2024-03-01 06:56] LABS: Glucose Point of Care 153 mg/dL (70-110)
[2024-03-01] MEDS: enoxaparin 40 mg/0.4 mL Syringe SUBCUT (08:20)
[2024-03-01] MEDS: insulin lispro 100 unit/1 mL SUBCUT ×3 (08:21→18:36)
[2024-03-01] MEDS: atorvastatin 40 mg Tablet 20 MG PO (08:21)
[2024-03-01] MEDS: carBAMazepine 200 mg Tablet PO ×2 (08:21→18:36)
[2024-03-01] MEDS: aspirin 81 mg EC Tablet PO (08:23)
[2024-03-01] MEDS: sennosides-docusate Tablet 1 TAB PO (08:23)
[2024-03-01] MEDS: losartan 50 mg Tablet PO (08:35)
[2024-03-01 11:49] LABS: Glucose Point of Care 142 mg/dL (70-110)
[2024-03-01] MEDS: hydroxychloroquine 200 mg Tablet PO (12:02)
[2024-03-01 17:28] LABS: Glucose Point of Care 163 mg/dL (70-110)
--- NOTE | 2024-03-01 18:08 | P.PN_ITS ---
Subjective 2 Subjective: Patient's mentation is back to baseline. She feels well overall. Tested positive for C. difficile. Medications: Reviewed: Yes Vitals/I&O/Wt Last Vital Signs Temp 99.0 F 03/01/24 16:00 Pulse 73 03/01/24 16:00 Resp 16 03/01/24 16:00 BP 116/54 03/01/24 16:00 Pulse Ox 96 03/01/24 16:00 O2 Del Method Room Air 03/01/24 16:00 03/01/24 03/01/24 03/01/24 06:59 14:59 22:59 Intake Total 295 / 295 Balance 295 / 295 Weight last 48 hrs Weight 98.112 kg Weight 98.067 kg Weight 97.976 kg Physical Exam 2 Narrative: General: No acute distress, AO x2 HEENT: PERRLA, pupils bilaterally equal and reactive, pallors not present Chest: Normal vesicular breath sounds, no added sounds, equal good air entry bilaterally CVS: S1-S2 regular, no murmurs, no tachycardia, no gallops, no rubs Abdomen: Soft, nontender, no organomegaly, bowel sounds present Neuro: No focal deficits, no facial deformity, AO x2, power 5/5 in all limbs Data 03/01/24 06:00 03/01/24 06:00 Micro: Microbiology 02/29/24 05:03 Blood Culture - Preliminary Blood NEGATIVE TO DATE 02/29/24 05:00 Blood Culture - Preliminary Blood NEGATIVE TO DATE A&P Assessment and plan (1) Undifferentiated connective tissue disease: (2) Osteoarthritis of shoulders, bilateral: (3) Fatigue: (4) Visual hallucination: (5) Recurrent UTI: Plan Metabolic encephalopathy related to UTI History of recurrent UTI, currently being treated with meropenem for ESBL Review of records revealed patient was started on 02/17 Continue 1 g every 8 hours Repeat blood and urine culture Afebrile No signs of meningitis No signs of stroke Check B12, TSH, free T4 and ammonia level along VBG Head CT unremarkable, onset of dementia? She does have advanced periventricular white matter changes Undifferentiated chronic tissue disorder with underlying rheumatoid arthritis May resume hydroxychloroquine in next 24 hours I do not see any signs of septic joint Sleep apnea: Will start on CPAP, requesting VBG Low normal B12, may benefit from B12 supplementation Abnormal TSH, check free T4 DNR/DNI as per the records Cardiac diet Patient has a right-arm PICC line DVT prophylaxis Lovenox March 01, 2024 Patient tested positive for C. difficile. Started on oral vancomycin 125 mg p.o. every 6 hours. Continue meropenem for ESBL E. coli UTI recently. Follow- up with [facility] for the same. Awaiting records to be faxed over. Blood culture thus far negative to date. Patient's mentation is back to recent baseline. Anticipate discharge in the upcoming 24 to 48 hours. Attestations 2 Medical Necessity Statement*: Clinically improving today. Anticipate discharge in the upcoming 24 hours. Coding Level of Care Code Acute Code for [facility] Fwd Diagnoses Undifferentiated connective tissue disease M35.9 Osteoarthritis of shoulders, bilateral M19.011; M19.012 Fatigue R53.83 Visual hallucination R44.1 Recurrent UTI N39.0
[2024-03-01 20:51] LABS: Glucose Point of Care 192 mg/dL (70-110)
[2024-03-02] VITALS (8 sets, daily range): BP systolic 138–164; BP diastolic 59–77; PULSE 69–84; RESP 16–18; TEMP 36.6–36.8; O2SAT 92–96
[2024-03-02] MEDS: hydroxychloroquine 200 mg Tablet PO ×3 (00:01→23:16)
[2024-03-02] MEDS: vancomycin 125 mg Capsule PO ×4 (02:28→19:43)
[2024-03-02] MEDS: meropenem 1,000 mg SDV 1000 MG IVP ×3 (05:31→19:42)
[2024-03-02 06:35] LABS: Glucose Point of Care 158 mg/dL (70-110)
[2024-03-02] MEDS: aspirin 81 mg EC Tablet PO (08:45)
[2024-03-02] MEDS: sennosides-docusate Tablet 1 TAB PO (08:45)
[2024-03-02] MEDS: losartan 50 mg Tablet PO (08:46)
[2024-03-02] MEDS: atorvastatin 40 mg Tablet 20 MG PO (08:46)
[2024-03-02] MEDS: carBAMazepine 200 mg Tablet PO ×2 (08:46→17:47)
[2024-03-02] MEDS: enoxaparin 40 mg/0.4 mL Syringe SUBCUT (08:46)
[2024-03-02] MEDS: insulin lispro 100 unit/1 mL SUBCUT ×3 (08:47→17:47)
--- NOTE | 2024-03-02 09:25 | PC.CHAP ---
Pastoral Care Encounter/Spiritual Assessment Type of Contact [] Declined instructional technology instructor visit [] Patient/Family/Request visit [] Outpatient visit [] Follow-up visit [] Physician referral [] Code/Alert [x] Routine visit [] Staff referral [] Actively dying [] Patient sleeping [] Family support [] [] Out of room [] Palliative care [] [] Receiving care in room [] Pre-surgical visit [] Trauma [] Long length of stay [] ICU visit [] Other: Relational/Emotional Strength [] Patient feels connected with others/family/visitors/staff [] Distress [] Loneliness/isolation [] Abandonment Spirituality of Patient [] Person of Violeta [] Attends Gnosticist of their Violeta [] Believes in Prayer [] Reads Bible or Oriental Orthodox materials [] There are Spiritual issues to be addressed Hair Spring Cutter Interventions [x] Prayer [] Active listening [] Non-anxious presence [] Spiritual/emotional support [] Crisis/trauma care [] Spiritual counseling [] Bereavement support [] Provided bereavement packet [] Provided Bible/devotional materials [] Provided toy/stuffed animal, coloring book to patient or family member [] Provided Communion [] Anointing/Homeland [] Salvation [] Completed spiritual assessment [] Other: Impact on Illness or Injury [] Angry [] Fearful [] Anxious [] Often cries [] Exhaustion [] Unable to work [] Unable to attend muslim [] Unable to walk/stand [] Unable to read [] Unable to drive [] Unable to eat/drink [] Unable to sleep [] Unable to be with family [] Patient intubated [] Other: Summary precaution Time spent with patient
[2024-03-02 11:42] LABS: Glucose Point of Care 163 mg/dL (70-110)
--- NOTE | 2024-03-02 14:25 | P.PN_ITS ---
Subjective 2 Subjective: Seen this morning. Awaiting records from [facility]. Patient is still confused. Unsure etiology. CT head negative. Vitals/I&O/Wt Last Vital Signs Temp 98 F 03/02/24 11:28 Pulse 76 03/02/24 11:28 Resp 18 03/02/24 11:28 BP 147/77 03/02/24 11:28 Pulse Ox 95 03/02/24 11:28 O2 Del Method Room Air 03/02/24 11:28 03/01/24 03/02/24 03/02/24 22:59 06:59 14:59 Intake Total 500 / 795 360 / 1155 960 / 960 Output Total 200 / 200 200 / 400 Balance 300 / 595 160 / 755 960 / 960 Weight last 48 hrs Weight 98.157 kg Weight 98.112 kg Physical Exam 2 Narrative: General: No acute distress, AO x2 HEENT: PERRLA, pupils bilaterally equal and reactive, pallors not present Chest: Normal vesicular breath sounds, no added sounds, equal good air entry bilaterally CVS: S1-S2 regular, no murmurs, no tachycardia, no gallops, no rubs Abdomen: Soft, nontender, no organomegaly, bowel sounds present Neuro: No focal deficits, no facial deformity, AO x2, Data 03/01/24 06:00 03/01/24 06:00 A&P Assessment and plan (1) Undifferentiated connective tissue disease: (2) Osteoarthritis of shoulders, bilateral: (3) Fatigue: (4) Visual hallucination: (5) Recurrent UTI: Plan Metabolic encephalopathy related to UTI History of recurrent UTI, currently being treated with meropenem for ESBL Review of records revealed patient was started on 02/17 Continue 1 g every 8 hours Repeat blood and urine culture Afebrile No signs of meningitis No signs of stroke Check B12, TSH, free T4 and ammonia level along VBG Head CT unremarkable, onset of dementia? She does have advanced periventricular white matter changes Undifferentiated chronic tissue disorder with underlying rheumatoid arthritis May resume hydroxychloroquine in next 24 hours I do not see any signs of septic joint Sleep apnea: Will start on CPAP, requesting VBG Low normal B12, may benefit from B12 supplementation Abnormal TSH, check free T4 DNR/DNI as per the records Cardiac diet Patient has a right-arm PICC line DVT prophylaxis Lovenox March 01, 2024 Patient tested positive for C. difficile. Started on oral vancomycin 125 mg p.o. every 6 hours. Continue meropenem for ESBL E. coli UTI recently. Follow- up with [facility] for the same. Awaiting records to be faxed over. Blood culture thus far negative to date. Patient's mentation is back to recent baseline. Anticipate discharge in the upcoming 24 to 48 hours. 03/02/2024 -Continue oral vancomycin. Diarrhea has subsided. Continue meropenem for ESBL UTI?. Awaiting records from [facility]. ? Blood culture negative so far. ? Apparently her mentation is back to recent baseline -Obtain urine culture. Discussed with nursing staff to straight cath and obtain sample. ? Plan to discharge home in a.m. If continues to remain stable Attestations 2 Medical Necessity Statement*: Clinically improving today. Anticipate discharge in the upcoming 24 hours. Coding Level of Care Code 15324 Diagnoses Undifferentiated connective tissue disease M35.9 Osteoarthritis of shoulders, bilateral M19.011; M19.012 Fatigue R53.83 Visual hallucination R44.1 Recurrent UTI N39.0
--- NOTE | 2024-03-02 14:39 | PC.NURSE ---
Patient was voiding as catheter was being placed. Patient also had a wet brief.
[2024-03-02 16:22] LABS: Glucose Point of Care 162 mg/dL (70-110)
[2024-03-02] MEDS: ondansetron 2 mg/ML SDV 2 mL 4 MG IVP (19:42)
[2024-03-02 20:39] LABS: Glucose Point of Care 170 mg/dL (70-110)
[2024-03-03] VITALS (7 sets, daily range): BP systolic 106–148; BP diastolic 55–75; PULSE 63–74; RESP 16–18; TEMP 36.4–36.8; O2SAT 92–96
[2024-03-03] MEDS: vancomycin 125 mg Capsule PO ×4 (02:13→20:27)
[2024-03-03] MEDS: meropenem 1,000 mg SDV 1000 MG IVP ×3 (04:42→20:27)
[2024-03-03 05:39] LABS: Basophils % 0.5 %; Eosinophils # 0.4 10^3/uL (0.0-0.8); Eosinophils % 6.8 %; Hematocrit 39.9 % (36-47); Lymphocytes # 1.9 10^3/uL (0.8-4.8); Lymphocytes % 31.9 %; Mean Corpuscular HGB Conc 33.6 g/dL (30-55); Mean Corpuscular Hemoglobin 31.6 pg (27-33); Mean Corpuscular Volume 94.1 fl (85-98); Mean Platelet Volume 9.6 fL (7.4-10.4); Monocytes # 0.5 10^3/uL (0.2-0.9); Neutrophils # 3.07 10^3/uL (1.8-7.7); Neutrophils % 52.3 %; Nucleated Red Blood Cells % 0 %; Platelet Count 259 10^3/cmm (157-399); Red Blood Count 4.24 10^6/uL (3.85-5.65); Red Cell Distribution Width 12.3 % (12.1-15.1); White Blood Count 5.87 10^3/uL (3.29-11.43)
[2024-03-03 06:21] LABS: Anion Gap 12.6 (5-19); Blood Urea Nitrogen 10 mg/dL (8-23); Calcium 9.1 mg/dL (8.5-10.5); Carbon Dioxide 28 mmol/L (22-29); Chloride 103 mmol/L (98-107); Creatinine Clr Calc Pharmacy 72.9292; Glucose 176 mg/dL (65-115); Magnesium 2.6 mg/dL (1.7-2.3); Osmolality Calculated 291 mOsm/kg (285-295); Potassium 4.6 mmol/L (3.5-5.1); Sodium 139 mmol/L (136-145)
[2024-03-03 06:22] LABS: Glucose Point of Care 174 mg/dL (70-110)
[2024-03-03] MEDS: enoxaparin 40 mg/0.4 mL Syringe SUBCUT (08:23)
[2024-03-03] MEDS: insulin lispro 100 unit/1 mL SUBCUT ×3 (08:24→17:17)
[2024-03-03] MEDS: losartan 50 mg Tablet PO (08:25)
[2024-03-03] MEDS: atorvastatin 40 mg Tablet 20 MG PO (08:26)
[2024-03-03] MEDS: sennosides-docusate Tablet 1 TAB PO (08:30)
[2024-03-03] MEDS: aspirin 81 mg EC Tablet PO (08:31)
[2024-03-03] MEDS: carBAMazepine 200 mg Tablet PO ×2 (08:34→17:17)
--- NOTE | 2024-03-03 09:12 | MR_ITS ---
WS: [id number] MRI BRAIN WITHOUT CONTRAST HISTORY: altered mental status COMPARISON: CT head 02/28/2024 TECHNIQUE: Diffusion imaging, multiplanar T1, T2 and FLAIR imaging obtained. Diffusion imaging is normal. No acute infarct. There is extensive confluent increased T2 and FLAIR si gnal surrounding the ventricles and extending to the subcortical white matter. Bilateral and symmetri c. Moderate symmetric hippocampal atrophy. Moderate atrophy the cerebrum and cerebellum. Mild ventricular dilatation on the basis of atrophy. No inferior displacement of cerebellar tonsils. The sella turcica and pituitary gland are unremarkabl e. Dural venous sinuses and [place] of [place] demonstrate no abnormality on this unenhanced studies. Paranasal sinuses: Clear. Mastoid air cells: Normal. Calvarium and scalp: Intact. MR/MR head wo con* [id number] IMPRESSION: 1. Normal diffusion imaging. No acute infarct. 2. Severe confluent signal abnormality throughout the white matter. Probably r elated to advanced small vessel disease. 3. Moderate symmetric hippocampal atrophy. 4. Moderate cerebral and cerebellar atrophy.
[2024-03-03 11:41] LABS: Glucose Point of Care 158 mg/dL (70-110)
[2024-03-03] MEDS: hydroxychloroquine 200 mg Tablet PO ×2 (12:05→23:32)
--- NOTE | 2024-03-03 13:26 | P.CONIM_ITS ---
Providers/Reason For Consult 2 Consulting Physician/Specialty*: Wallace Butcher MD neurology and epilepsy Reason for Consult*: Change in mental status Attending Physician: Janice Singletary MD Primary Care Provider: Noemy Garcias MD History of Present Illness History of Present Illness Marisa Jackson is a 73 year old female with a history of depression recurrent urinary tract infections. Patient recently admitted to a longterm and underwent greater than 3 weeks of antibiotics for urinary tract infection. According to the who was present at the patient's bedside today, the patient was reported to have some visual hallucinations at night. Patient was transferred to [facility]. In the hospital the patient was reported to have some sundowning like episodes described as hallucinations and agitation. Therefore neurology consult was obtained. Currently the patient is alert and in no apparent distress. According to the patient's the patient is currently at her baseline. But the stated that at night the patient will become more confused. The patient's also stated the patient's father has a history of depression requiring ECT therapy in the past. The patient currently denies being homicidal suicidal. Head MRI obtained on 03/03/2024 revealed the following: Severe confluent signal abnormality throughout the white matter. Probably related to advanced small vessel disease. Moderate symmetric hippocampal atrophy. Moderate cerebral and cerebellar atrophy. Drug allergies: Codeine which resulted in altered mental status Shellfish derivatives which resulted in vomiting and diarrhea Current medications: Tylenol 325 mg p.o. 4 times daily, as needed pain Albuterol sulfate 2.5 mg every 4 hours as needed Tegretol 200 mg p.o. twice daily Vitamin D3 50 mcg p.o. daily Fosfomycin 1 pack p.o. for 7 days Hydrochlorothiazide 25 mg p.o. daily Hydroxychloroquine 400 mg p.o. daily for rheumatoid arthritis Metformin 500 mg p.o. daily Effexor 75 mg p.o. twice daily Past medical history: Rheumatoid arthritis Recurrent urinary tract infections Depression Bilateral total knee replacements Habits: None Family history: Remarkable for father who experienced depression requiring ECT therapy Social history: Patient lives with her Review of Systems 2 General: Reports: 10 or more systems reviewed and unremarkable except in HPI and below Const: Reports: other (Generalized weakness) Neuro: Reports: difficulty walking Psych: Reports: depression (The patient denied being homicidal or suicidal) and memory loss Medications/Allergies Home Medications Medication Instructions Recorded Confirmed Last Taken Type albuterol sulfate 2.5 mg/3 mL 2.5 mg inhalation Q4H PRN 03/17/19 03/01/24 Unknown History (0.083 %) solution for nebulization Shortness Of Breath Or Wheezing Lactobacillus 1 cap PO DAILY PRN use with 10/29/19 03/01/24 Unknown History acidophilus-Bifidobac.animalis 2 antibiotics billion cell capsule (One-A-Day Trubiotics) ktejesez-wil-hjljl acid 0.4 1 tab PO DAILY 10/29/19 03/01/24 02/28/24 History mg-lycopene 300 mcg-lutein 250 mcg tablet (Complete Multivitamin Adult 50 Plus) albuterol sulfate 90 mcg/actuation 2 puff inhalation Q6H PRN 01/26/20 03/01/24 Unknown Rx aerosol inhaler (ProAir HFA) shortness of breath or wheezing #8.5 grams acetaminophen 325 mg tablet 325 mg PO QID PRN pain or fever 02/29/24 02/29/24 02/24/24 History (Tylenol) carbamazepine 200 mg tablet 200 mg PO BID 02/29/24 02/29/24 02/28/24 History cholecalciferol (vitamin D3) 50 50 mcg PO DAILY 02/29/24 02/29/24 02/28/24 History mcg (2,000 unit) tablet (Vitamin D3) venlafaxine 75 mg tablet 75 mg PO BID 02/29/24 03/01/24 02/28/24 History fosfomycin tromethamine 3 gram 1 packet PO Q7D 03/01/24 03/01/24 Unknown History oral packet hydrochlorothiazide 25 mg tablet 25 mg PO QAM 03/01/24 03/01/24 02/28/24 07:00 History hydroxychloroquine 200 mg tablet 400 mg PO DAILY 03/01/24 03/01/24 02/28/24 07:00 History metformin 500 mg tablet,extended 500 mg PO DAILY 03/01/24 03/01/24 02/28/24 07:00 History release 24 hr phenylephrine 0.2 %-glycerin 0.25 2 drp ophthalmic (eye) BID PRN Dry 03/01/24 03/01/24 Unknown History % eye drops (Clear Eyes Sensitive) Eyes polyethylene glycol 3350 17 17 g PO BID PRN constapation 03/01/24 03/01/24 02/28/24 16:55 History gram/dose oral powder Allergies Allergy/AdvReac Type Severity Reaction Status Date / Time codeine AdvReac Severe ALTERED Verified 02/28/24 22:35 MENTAL STATUS shellfish derived AdvReac Unknown VOMITING Verified 02/28/24 22:35 AND DIARRHEA Current Medications Generic Name Dose Route Start Last Admin Trade Name Freq PRN Reason Stop Dose Admin Aspirin 81 mg 02/29/24 09:00 03/03/24 08:31 Aspirin 81 Mg Ec Tablet PO 81 mg DAILY GOYO Administration Atorvastatin Calcium 20 mg 03/01/24 09:00 03/03/24 08:26 Atorvastatin 40 Mg Tablet PO 20 mg DAILY GOYO Administration Carbamazepine 200 mg 02/29/24 18:00 03/03/24 08:34 Carbamazepine 200 Mg Tablet PO 200 mg BID GOYO Administration Enoxaparin Sodium 40 mg 02/29/24 08:00 03/03/24 08:23 Enoxaparin 40 Mg/0.4 Ml Syringe SUBCUT 40 mg Q24H GOYO Administration Hydroxychloroquine Sulfate 200 mg 02/29/24 11:30 03/03/24 12:05 Hydroxychloroquine 200 Mg Tablet PO 03/03/24 23:31 200 mg Q12H GOYO Administration Insulin Human Lispro 0 unit 02/29/24 08:00 03/03/24 12:05 Insulin Lispro 100 Unit/1 Ml SUBCUT 4 unit TIDWM GOYO Administration Protocol Losartan Potassium 50 mg 02/29/24 09:00 03/03/24 08:25 Losartan 50 Mg Tablet PO 50 mg DAILY GOYO Administration Meropenem 1,000 mg 02/29/24 05:30 03/03/24 04:42 Meropenem 1,000 Mg Sdv IVP 1,000 mg Q8H GOYO Administration Protocol Ondansetron HCl 4 mg 02/29/24 07:43 03/02/24 19:42 Ondansetron 2 Mg/Ml Sdv 2 Ml IVP 4 mg Q6H PRN Administration NAUSEA AND VOMITING Senna/Docusate Sodium 1 tab 02/29/24 09:00 03/03/24 08:30 Sennosides-Docusate Tablet PO 1 tab DAILY GOYO Administration Vancomycin HCl 125 mg 02/29/24 14:00 03/03/24 08:31 Vancomycin 125 Mg Capsule PO 125 mg Q6H GOYO Administration PFSH Acute 2 PFSH: Medical History (Updated 03/03/24 @ 13:33 by Wallace Butcher MD) Carpal tunnel syndrome of left wrist 1994 Encounter for tubal ligation counseling Dyspnea Immunosuppression Osteoarthritis of carpometacarpal joint of left thumb Osteoarthritis of shoulders, bilateral Undifferentiated connective tissue disease Surgical History (Updated 02/29/24 @ 05:55 by Omid Garcia MD) H/O Spinal surgery Hx of cholecystectomy H/O bladder repair surgery H/O lumpectomy BREAST ON LEFT 2001 H/O eye surgery TUMOR REMOVAL 197 H/O tubal ligation History of foot surgery RIGHT 1998 H/O adenoidectomy History of tonsillectomy History of knee replacement LEFT 2001 AND RIGHT 2002 History of bilateral knee arthroplasty Social History Smoking and tobacco/nicotine status: never used tobacco/nicotine Alcohol intake: never Vitals/I&O/Wt Last Vital Signs Temp 98.2 F 03/03/24 12:17 Pulse 69 03/03/24 12:17 Resp 18 03/03/24 12:17 BP 121/65 03/03/24 12:17 Pulse Ox 92 03/03/24 12:17 O2 Del Method Room Air 03/03/24 12:17 03/02/24 03/03/24 03/03/24 22:59 06:59 14:59 Intake Total 720 / 1680 240 / 1920 480 / 480 Balance 720 / 1630 240 / 1870 480 / 480 Weight last 48 hrs Weight 216 lb 9.6 oz Weight 216 lb 6.4 oz Physical Exam 2 Narrative: The patient is alert and oriented to person and situation. She recognized her . The patient knew the year, month. The patient was able to tell me her complete name as well as her date of . The patient knew the season. The patient was able to follow commands. Head normocephalic. Neck supple. Cranial nerves II through XII grossly intact. Motor testing grossly nonfocal. Patient has signs of bilateral knee surgery but without signs of infection. Throat clear. Lungs revealed no obvious wheezing. Heart regular rhythm and rate. Extremities were negative for cyanosis. Data 03/03/24 04:37 03/03/24 04:37 A&P Assessment and plan (1) Altered mental status: 1. Altered mental status manifested as episodes of hallucinations and confusion 2. History of recurrent urinary tract infection requiring prolonged antibiotic treatment 3. Depression 4. Rheumatoid arthritis Plan: 1. Agree with obtaining lumbar puncture under fluoroscopy by radiology to rule out chronic infection 2. Continue to monitor patient's condition 3. (2) Visual hallucination: Consult Attestations 2 Medical Necessity Statement: The patient was evaluated by neurology for altered mental status Coding Level of Care Code 04838 Diagnoses Altered mental status R41.82 Visual hallucination R44.1
--- NOTE | 2024-03-03 14:09 | PM.PN ---
Subjective Subjective: Seen this morning. No acute events overnight. Vitals/I&O/Wt Last Vital Signs Temp 98.2 F 03/03/24 12:17 Pulse 69 03/03/24 12:17 Resp 18 03/03/24 12:17 BP 121/65 03/03/24 12:17 Pulse Ox 92 03/03/24 12:17 O2 Del Method Room Air 03/03/24 12:17 03/02/24 03/03/24 03/03/24 22:59 06:59 14:59 Intake Total 720 / 1680 240 / 1920 960 / 960 Balance 720 / 1630 240 / 1870 960 / 960 Weight last 48 hrs Weight 98.248 kg Weight 98.157 kg Physical Exam Narrative: General: No acute distress, AO x2 HEENT: PERRLA, pupils bilaterally equal and reactive, pallors not present Chest: Normal vesicular breath sounds, no added sounds, equal good air entry bilaterally CVS: S1-S2 regular, no murmurs, no tachycardia, no gallops, no rubs Abdomen: Soft, nontender, no organomegaly, bowel sounds present Neuro: No focal deficits, no facial deformity, AO x2, Data 03/03/24 04:37 03/03/24 04:37 A&P Assessment and plan (1) Undifferentiated connective tissue disease: (2) Osteoarthritis of shoulders, bilateral: (3) Fatigue: (4) Visual hallucination: (5) Recurrent UTI: Plan Metabolic encephalopathy related to UTI History of recurrent UTI, currently being treated with meropenem for ESBL Review of records revealed patient was started on 02/17 Continue 1 g every 8 hours Repeat blood and urine culture Afebrile No signs of meningitis No signs of stroke Check B12, TSH, free T4 and ammonia level along VBG Head CT unremarkable, onset of dementia? She does have advanced periventricular white matter changes Undifferentiated chronic tissue disorder with underlying rheumatoid arthritis May resume hydroxychloroquine in next 24 hours I do not see any signs of septic joint Sleep apnea: Will start on CPAP, requesting VBG Low normal B12, may benefit from B12 supplementation Abnormal TSH, check free T4 DNR/DNI as per the records Cardiac diet Patient has a right-arm PICC line DVT prophylaxis Lovenox March 01, 2024 Patient tested positive for C. difficile. Started on oral vancomycin 125 mg p.o. every 6 hours. Continue meropenem for ESBL E. coli UTI recently. Follow-up with [facility] for the same. Awaiting records to be faxed over. Blood culture thus far negative to date. Patient's mentation is back to recent baseline. Anticipate discharge in the upcoming 24 to 48 hours. 03/02/2024 -Continue oral vancomycin. Diarrhea has subsided. Continue meropenem for ESBL UTI?. Awaiting records from [place]. ? Blood culture negative so far. ? Apparently her mentation is back to recent baseline -Obtain urine culture. Discussed with nursing staff to straight cath and obtain sample. ? Plan to discharge home in a.m. If continues to remain stable 03/03/2024 -Urine culture pending however expected to be sterile since patient has been on meropenem at [facility] and now on the same here. ? Awaiting records from . ? Blood culture negative so far ? Patient is confused. ? Discussed with patient's over the phone who states that patient has been more and more confused in the last few months and has had a progressive decline however in the last 1 week has had sudden turn for the worse. She was brought to the hospital due to active hallucination at 2 AM. He is not sure if this is delirium or something else. ? MRI brain pending this morning ? Will proceed with a lumbar puncture ? Consult neurology. ? I have low suspicion of meningitis however will rule out chronic infection. Attestations Medical Necessity Statement*: Patient still confused. We will proceeding with a lumbar puncture. Diagnoses Undifferentiated connective tissue disease M35.9 Osteoarthritis of shoulders, bilateral M19.011; M19.012 Fatigue R53.83 Visual hallucination R44.1 Recurrent UTI N39.0
[2024-03-03 16:37] LABS: Glucose Point of Care 144 mg/dL (70-110)
[2024-03-03 20:41] LABS: Glucose Point of Care 146 mg/dL (70-110)
[2024-03-04] VITALS: BP 116/66; PULSE 68; RESP 16; TEMP 36.6; O2SAT 95
[2024-03-04] MEDS: vancomycin 125 mg Capsule PO ×2 (02:08→09:37)
[2024-03-04 04:00] VITALS: BP 121/72; PULSE 67; RESP 17; TEMP 37; O2SAT 95
[2024-03-04 05:40] LABS: Basophils % 0.3 %; Eosinophils # 0.3 10^3/uL (0.0-0.8); Hematocrit 40.5 % (36-47); Lymphocytes # 1.7 10^3/uL (0.8-4.8); Lymphocytes % 28.4 %; Mean Corpuscular HGB Conc 34.1 g/dL (30-55); Mean Corpuscular Hemoglobin 30.9 pg (27-33); Mean Corpuscular Volume 90.8 fl (85-98); Mean Platelet Volume 9.6 fL (7.4-10.4); Monocytes # 0.4 10^3/uL (0.2-0.9); Monocytes % 7.4 %; Neutrophils % 58.4 %; Nucleated Red Blood Cells % 0 %; Platelet Count 277 10^3/cmm (157-399); Red Blood Count 4.46 10^6/uL (3.85-5.65); Red Cell Distribution Width 11.9 % (12.1-15.1); White Blood Count 5.82 10^3/uL (3.29-11.43)
[2024-03-04] MEDS: meropenem 1,000 mg SDV 1000 MG IVP (05:42)
[2024-03-04 06:11] LABS: Blood Urea Nitrogen 13 mg/dL (8-23); Calcium 9.3 mg/dL (8.5-10.5); Carbon Dioxide 24 mmol/L (22-29); Chloride 103 mmol/L (98-107); Creatinine Clr Calc Pharmacy 72.7878; Glucose 192 mg/dL (65-115); Osmolality Calculated 295 mOsm/kg (285-295); Sodium 140 mmol/L (136-145)
[2024-03-04 06:17] LABS: Glucose Point of Care 202 mg/dL (70-110)
[2024-03-04 07:47] VITALS: PULSE 69; RESP 16; O2SAT 96
[2024-03-04 08:00] VITALS: BP 150/76; PULSE 73; RESP 17; TEMP 36.9; O2SAT 92
[2024-03-04] MEDS: sennosides-docusate Tablet 1 TAB PO (09:36)
[2024-03-04] MEDS: insulin lispro 100 unit/1 mL SUBCUT ×2 (09:36→11:23)
[2024-03-04] MEDS: aspirin 81 mg EC Tablet PO (09:36)
[2024-03-04 09:37] VITALS: BP 150/76
[2024-03-04] MEDS: losartan 50 mg Tablet PO (09:37)
[2024-03-04] MEDS: atorvastatin 40 mg Tablet 20 MG PO (09:37)
[2024-03-04] MEDS: carBAMazepine 200 mg Tablet PO (09:46)
[2024-03-04 11:11] LABS: Glucose Point of Care 229 mg/dL (70-110)
--- NOTE | 2024-03-04 11:12 | P.DS_ITS ---
Discharge Providers Date of Admission: 03/01/24 18:40 Date of Discharge: March 04, 2024 Attending Provider at Admission: Omid Garcia MD Attending Provider at Discharge: Janice Singletary MD Primary Care Provider: Noemy Garcias MD Diagnoses at Discharge Discharge Diagnosis (1) Undifferentiated connective tissue disease: Status: Acute (2) Osteoarthritis of shoulders, bilateral: Status: Acute (3) Fatigue: Status: Acute (4) Visual hallucination: Status: Acute (5) Recurrent UTI: Status: Acute Reason for Visit Reason for Visit: AMS Hospital Course Hospital Course 73-year-old lady presented to the hospital from [facility] [place] with altered mental status. She was hallucinating at nighttime and was sent to the hospital for further evaluation. She was getting IV meropenem for ESBL E. coli UTI and was recently discharged from [facility] on February 16 with 4 weeks prescription for meropenem. Reviewed records from [place]. Patient has persistent and recurrent UTIs for which she has tried ertapenem for 2 weeks at home at which point their UTI recurred and she was then prescribed meropenem. Patient is 14 days into that treatment at this time. On admission she also had diarrhea and was C. difficile positive. She was started on oral vancomycin. Overall mentation has come back to baseline as confirmed by her at bedside. He states that she has had a progressive decline recently and he believes that she may have had some delirium since she has been in the prison which I completely agree with. Neurology was also consulted. There was a question of possible chronic infection and LP was ordered. However would like to hold off on the LP at this time. He states he does not want to put her through that procedure. Patient seems to be back to her recent baseline and at this point will be discharged seeing facility to follow-up with neurology outpatient and her ID physician at [facility]. She is to continue her meropenem which should complete on March 19 as per records from [facility]. Blood cultures at [facility] were negative. Physical Exam Narrative: General: No acute distress, AO x2 HEENT: PERRLA, pupils bilaterally equal and reactive, pallors not present Chest: Normal vesicular breath sounds, no added sounds, equal good air entry bilaterally CVS: S1-S2 regular, no murmurs, no tachycardia, no gallops, no rubs Abdomen: Soft, nontender, no organomegaly, bowel sounds present Neuro: No focal deficits, no facial deformity, AO x2, Discharge Data Studies Completed and Pending Completed Studies During Hospitalization Category Date Time Status CT chest abdomen pelvis [CT chest abdpel w/*[id number] Cat Scan 02/29/24 03:57 Completed ] Stat CT head wo con* [id number] Stat Cat Scan 02/28/24 22:53 Completed MR head wo con* [id number] Urgent MRI 03/03/24 09:12 Completed Pending at discharge Category Date Time Status FL guided lumbarpunc dx* [id number] Urgent Exams 03/04/24 12:32 Ordered Blood Culture Stat Lab 02/29/24 05:03 Results CSF Analysis + Cell Count Stat Lab 03/03/24 12:32 Uncollected CSF Culture & Gram Stain Stat Lab 03/03/24 12:32 Uncollected CSF Culture Stat Lab 03/03/24 12:32 Uncollected CSF Specific [place] Routine Lab 03/03/24 12:32 Uncollected Cryptococcal Antigen (CSF) Stat Lab 03/03/24 12:32 Uncollected Cyto Order Verification Routine Lab 03/03/24 12:33 Ordered Glucose CSF Stat Lab 03/03/24 12:38 Uncollected [place] Enceph.Virus IFA CSF Stat Lab 03/03/24 12:32 Ordered Total Protein CSF Stat Lab 03/03/24 12:38 Uncollected VDRL on CSF Stat Lab 03/03/24 12:32 Uncollected [place] Nile Virus AB Panel,CSF Stat Lab 03/03/24 12:32 Ordered Radiology Impressions Head CT 02/28/24 22:53 IMPRESSION: No acute intracranial abnormality. Chest/Abdomen/Pelvis CT 02/29/24 03:57 IMPRESSION: 1. No acute thoracic findings. 2. Findings indicative of aortic stenosis, correlate clinically and with echocardiogram. 3. Right middle lobe micronodule, optional CT in 12 months to assess for stability can be obtained, especially in the setting of high-risk behaviors. IMPRESSION: Findings consistent with acute on chronic cystitis. Asymmetric thickening of the bladder wall is likely secondary to some degree of chronic inflammation/outlet obstruction, difficult to exclude plaque-like neoplasm. Correlate clinically. Head MRI 03/03/24 09:12 IMPRESSION: 1. Normal diffusion imaging. No acute infarct. 2. Severe confluent signal abnormality throughout the white matter. Probably related to advanced small vessel disease. 3. Moderate symmetric hippocampal atrophy. 4. Moderate cerebral and cerebellar atrophy. Laboratory Results WBC 5.82 10^3/uL (3.29-11.43) 03/04/24 04:55 RBC 4.46 10^6/uL (3.85-5.65) 03/04/24 04:55 Hgb 13.80 g/dL (11.27-16.99) 03/04/24 04:55 Hct 40.5 % (36-47) 03/04/24 04:55 MCV 90.8 fl (85-98) 03/04/24 04:55 MCH 30.9 pg (27-33) 03/04/24 04:55 MCHC 34.1 g/dL (30-55) 03/04/24 04:55 RDW 11.9 % (12.1-15.1) L 03/04/24 04:55 Plt Count 277 10^3/cmm (157-399) 03/04/24 04:55 MPV 9.6 fL (7.4-10.4) 03/04/24 04:55 Neut % (Auto) 58.4 % 03/04/24 04:55 Lymph % (Auto) 28.4 % 03/04/24 04:55 [place] % (Auto) 7.4 % 03/04/24 04:55 Eos % (Auto) 5.0 % 03/04/24 04:55 Baso % (Auto) 0.3 % 03/04/24 04:55 Neut # (Auto) 3.40 10^3/uL (1.8-7.7) 03/04/24 04:55 Lymph # (Auto) 1.7 10^3/uL (0.8-4.8) 03/04/24 04:55 [place] # (Auto) 0.4 10^3/uL (0.2-0.9) 03/04/24 04:55 Eos # (Auto) 0.3 10^3/uL (0.0-0.8) 03/04/24 04:55 Baso # (Auto) 0.0 10^3/uL (0.0-0.1) 03/04/24 04:55 Nucleated RBC % (auto) 0 % 03/04/24 04:55 Nucleated RBCs # 0.0 /100WBC 03/04/24 04:55 ESR 29 mm/hr (0-15) H 02/28/24 23:18 Specimen Type Venous 02/29/24 06:08 Sample Site Not specified 02/29/24 06:08 Adal Test N/a 02/29/24 06:08 VBG pH 7.42 (7.32-7.42) 02/29/24 06:08 VBG pCO2 41.9 mmHg (41-51) 02/29/24 06:08 VBG pO2 48.9 mmHg (25-40) H 02/29/24 06:08 VBG HCO3 26.8 mmol/L (24-28) 02/29/24 06:08 VBG Base Excess 2.0 mmol/L (-3.0-3.0) 02/29/24 06:08 VBG Hematocrit 42.3 % (37-47) 02/29/24 06:08 O2 Delivery Device Room air 02/29/24 06:08 FiO2 21.0 % 02/29/24 06:08 [employer] ID [place] 02/29/24 06:08 Sodium 140 mmol/L (136-145) 03/04/24 04:55 Potassium 4.0 mmol/L (3.5-5.1) 03/04/24 04:55 Chloride 103 mmol/L (98-107) 03/04/24 04:55 Carbon Dioxide 24 mmol/L (22-29) 03/04/24 04:55 Anion Gap 17.0 (5-19) 03/04/24 04:55 BUN 13 mg/dL (8-23) 03/04/24 04:55 Creatinine 0.6 mg/dL (0.5-0.9) 03/04/24 04:55 GFR Calculation Not Reportable 03/04/24 04:55 Glucose 192 mg/dL (65-115) H 03/04/24 04:55 POC Glucose 229 mg/dL (70-110) H 03/04/24 11:08 Estimat Average Glucose 186 02/29/24 08:39 Hemoglobin A1c 8.1 % (4.0-6.0) H 02/29/24 08:39 Calculated Osmolality 295 mOsm/kg (285-295) 03/04/24 04:55 Lactic Acid 1.0 mmol/L (0.5-2.2) 02/29/24 05:03 Calcium 9.3 mg/dL (8.5-10.5) 03/04/24 04:55 Magnesium 2.0 mg/dL (1.7-2.3) 03/04/24 04:55 Total Bilirubin 0.3 mg/dL (0.15-1.2) 02/28/24 23:18 AST 21 U/L (0-32) 02/28/24 23:18 ALT 21 U/L (0-33) 02/28/24 23:18 Alkaline Phosphatase 94 U/L (35-105) 02/28/24 23:18 Ammonia 24 umol/L (11-51) 02/29/24 08:39 C-Reactive Protein 3.0 mg/L (0.0-4.9) 03/04/24 04:55 Total Protein 6.9 g/dL (6.6-8.7) 02/28/24 23:18 Albumin 3.8 g/dL (3.5-5.2) 02/28/24 23:18 Globulin 3.1 g/dL (1.3-4.6) 02/28/24 23:18 Vitamin B12 428 pg/mL (232-1245) 02/28/24 23:18 Procalcitonin 0.12 ng/mL (0-0.5) 02/28/24 23:18 TSH 7.78 uIU/mL (0.27-4.20) H 02/28/24 23:18 Free T4 0.88 ng/dL (0.82-1.77) 02/28/24 23:18 Urine Color Yellow (Yellow) 02/29/24 01:10 Urine Appearance Clear (CLEAR) 02/29/24 01:10 Urine pH 5.5 (5-7) 02/29/24 01:10 Ur Specific [place] 1.020 (1.005-1.030) 02/29/24 01:10 Urine Protein 1+ (Negative) A 02/29/24 01:10 Urine Glucose (UA) Negative (Normal) 02/29/24 01:10 Urine Ketones Trace (Negative) 02/29/24 01:10 Urine Blood Negative (Negative) 02/29/24 01:10 Urine Nitrate Negative (Negative) 02/29/24 01:10 Urine Bilirubin Negative (Negative) 02/29/24 01:10 Urine Urobilinogen 1.0 mg/dL (Negative) 02/29/24 01:10 Ur Leukocyte Esterase 1+ (Negative) A 02/29/24 01:10 Urine RBC 0-2 /hpf (0-2) 02/29/24 01:10 Urine WBC 21-50 /hpf (0-5) H 02/29/24 01:10 Ur Squamous Epith Cells 10-15 /hpf (0-5) H 02/29/24 01:10 Amorphous Sediment Not Reportable 02/29/24 01:10 Urine Bacteria None seen /hpf (NONE) 02/29/24 01:10 Hyaline Casts 2.05 /lpf 02/29/24 01:10 Urine Mucus Trace /hpf 02/29/24 01:10 Salicylates < 0.3 mg/dL (3-10) L 02/28/24 23:18 Urine Opiates Screen Negative ng/mL (Negative) 02/29/24 01:10 Acetaminophen < 5.0 ug/mL (10-30) L 02/28/24 23:18 Ur Barbiturates Screen Negative ng/mL (Negative) 02/29/24 01:10 Carbamazepine 4.6 ug/mL (4.0-12.0) 02/29/24 12:06 Ur Phencyclidine Scrn Negative ng/mL (Negative) 02/29/24 01:10 Ur Amphetamines Screen Negative ng/mL (Negative) 02/29/24 01:10 U Benzodiazepines Scrn Negative ng/mL (Negative) 02/29/24 01:10 Urine Cocaine Screen Negative ng/mL (Negative) 02/29/24 01:10 U Marijuana (THC) Screen Negative ng/mL (Negative) 02/29/24 01:10 C. difficile (PCR) Positive (Negative) H 02/29/24 11:45 Vitals Last Vital Signs Temp 98.4 F 03/04/24 08:00 Pulse 73 03/04/24 08:00 Resp 17 03/04/24 08:00 BP 150/76 03/04/24 09:37 Pulse Ox 92 03/04/24 08:00 O2 Del Method Room Air 03/04/24 08:00 Discharge Plan Discharge Patient Disposition: Xfer [facility] Condition: Stable Prescriptions: New vancomycin 125 mg Capsule 125 mg PO Q6H 7 Days Qty: 28 0RF Continued albuterol sulfate 2.5 mg /3 mL (0.083 %) solution for nebulization 2.5 mg INHALATION Q4H PRN (Reason: Shortness Of Breath Or Wheezing) albuterol sulfate [ProAir HFA] 90 mcg/actuation HFA aerosol inhaler 2 puff inhalation Q6H PRN (Reason: shortness of breath or wheezing) Qty: 8.5 0RF One-A-Day Trubiotics 2 billion cell capsule 1 cap PO DAILY PRN (Reason: use with antibiotics) Complete MV Adult 50 Plus 0.4-300-250 mg-mcg-mcg tablet 1 tab PO DAILY acetaminophen [Tylenol] 325 mg Tablet 325 mg PO QID PRN (Reason: pain or fever ) carbamazepine 200 mg tablet 200 mg PO BID cholecalciferol (vitamin D3) [Vitamin D3] 50 mcg (2,000 unit) Tablet 50 mcg PO DAILY venlafaxine 75 mg tablet 75 mg PO BID hydrochlorothiazide 25 mg tablet 25 mg PO QAM hydroxychloroquine 200 mg tablet 400 mg PO DAILY polyethylene glycol 3350 17 gram/dose Powder 17 g PO BID PRN (Reason: constapation) metformin 500 mg Tablet Extended Release 24 Hr 500 mg PO DAILY Clear Eyes Sensitive 0.2-0.25 % Drops 2 drp OPHTHALMIC (EYE) BID PRN (Reason: Dry Eyes) Held fosfomycin tromethamine 3 gram Packet 1 packet PO Q7D Hold Instructions: as per ID at [facility] Discharge Orders: Discharge Order (Routine); Ordered 03/04/24 Ordered By: Janice Singletary Referrals: Noemy Garcias MD [Primary Care Provider] - 4-7 days Discharge Diet: Cardiac Discharge Activity: Resume usual activity Patient Instructions: Vancomycin (By mouth), Altered Mental Status (ED) Discharge Attestations Time Spent in Discharge Care*: greater than 30 min Quality Metrics Clinical Quality Measures [ No reported AMI, CVA or VTE this stay] Coding Level of Care Code Acute Code for Chg Fwd Diagnoses Undifferentiated connective tissue disease M35.9 Osteoarthritis of shoulders, bilateral M19.011; M19.012 Fatigue R53.83 Visual hallucination R44.1 Recurrent UTI N39.0
[2024-03-04 12:23] LABS: SARS Covid-2 Antigen negative (Negative)
== END 2024-03-04 12:45 | disposition skilled nursing facility (03) | DRG 371 ==
LOC: ER 02-29 05:35 → MEDSURG 02-29 05:48
PROVIDERS: Student in an Organized Health Care Education/Training Program; Admitting Provider Internal Medicine; Emergency Provider Emergency Medicine; PCP Family Medicine; Visit Provider Internal Medicine
DX: A04.72 Enterocolitis due to Clostridium difficile, not specified as recurrent (principal); G93.41 Metabolic encephalopathy; M35.9 Systemic involvement of connective tissue, unspecified; M19.012 Primary osteoarthritis, left shoulder; M19.011 Primary osteoarthritis, right shoulder; N30.20 Other chronic cystitis without hematuria; B96.20 Unspecified Escherichia coli [E. coli] as the cause of diseases classified elsewhere; M06.9 Rheumatoid arthritis, unspecified; Z96.653 Presence of artificial knee joint, bilateral; E66.01 Morbid (severe) obesity due to excess calories; Z66 Do not resuscitate; G47.30 Sleep apnea, unspecified; Z79.82 Long term (current) use of aspirin; Z87.440 Personal history of urinary (tract) infections; Z95.828 Presence of other vascular implants and grafts; Z90.49 Acquired absence of other specified parts of digestive tract
CPT/HCPCS: 36415; 36416; 51702; 70450; 70551; 71260; 74177; 80048; 80053; 80156; 80306; 80307; 81001; 82140; 82607; 82803; 82962; 83036; 83605; 83735; 84145; 84439; 84443; 85025; 85651; 86140; 87040; 87086; 87426; 87493; 96372; 96374; 99285; G0378; J1650; J1815; J2185; J2405; J3420; J7030

== ENCOUNTER 2024-11-13 17:46 | Inpatient (IN) | payer MEDICARE, OTHER, SELFPAY ==
--- OUTSIDE RECORDS SUMMARY | 2024-04-01 12:00 | XMS_ITS ---
Author Organization [facility] Address [address] [place] [address] Care Team Providers Care Siene Maker Name Role Phone Jason Garcias Primary Care Provider UnavailPEG Tovar Unavailable [phone] DK JEFFERSON Unavailable [phone] Encounters Encounter Location Date Provider Diagnosis [facility] [address] [place] [facility] [place] [address] 04/01/2024 DK JEFFERSON Plan Of Treatment No Information Progress Notes * Marisa JACKSON KDOB: 0 (74 yo F)Acc No.[id number]:04/01/2024 Patient: Marisa TORRES Provider: Francis Jefferson MD :1950 A ge:73 Y S ex:Female Date:04/01/2024 Address: [address] Pcp:Jason Garcias Subjective: * Chief Complaints: * * Medical History: Objective: * Vitals: Assessment: Plan: * Treatment: * Billing Information: * Visit Code: * Procedure Codes: * Electronic signature of LIZBETH JEFFERSON MD on 11/13/2024 at 05:51 PM CDT Sign off status: Pending * Provider: Francis Jefferson MD Date: 0 04/01/2024 Generated for Rj feldman/Chris/eTransmitting on: 0 11/13/2024 05:51 PM CDT
--- OUTSIDE RECORDS SUMMARY | 2024-04-06 06:00 | XMS_ITS ---
Author Organization [facility] Address [address] [place] [address] Care Team Providers Care Fireworks Inspector Name Role Phone Jason Garcias Primary Care Provider UnavailIsrael Cosby JR Unavailable [phone] Marce Dumont [phone] Encounters Encounter Location Date Provider Diagnosis [facility] [address] [place] [address] 04/06/2024 Marce Dumont Plan Of Treatment No Information Progress Notes * Marisa JACKSON KDOB: [birth year] (74 yo F)Acc No.[id number]:04/06/2024 Progress Notes Patient: Krzysztof rodriguez Marisa Menendez Provider: Luciano Dumont APRN :1950 A ge:73 Y S ex:Female Date:04/06/2024 Address: [place] [id number] Pcp:Jason Garcias Billing Information: * Procedure Codes: * Electronic signature of Marce Dumont APRN on 11/13/2024 at 05:52 PM CDT Sign off status: Pending * Provider: Luciano Dumont APRN Date: 0 04/06/2024 Generated for Printi ng/Faxing/eTransmitting on: 0 11/13/2024 05:52 PM CDT
--- OUTSIDE RECORDS SUMMARY | 2024-05-05 12:00 | XMS_ITS ---
Author Organization [facility] Address [address] [place] [address] Care Team Providers Care Equalizing Saw Operator Name Role Phone Jason Garcias Primary Care Provider UnavailPEG Tovar Unavailable [phone] DK JEFFERSON Unavailable [phone] Encounters Encounter Location Date Provider Diagnosis [facility] [address] [place] [facility] [place] [address] 05/05/2024 DK JEFFERSON Plan Of Treatment No Information Progress Notes * Marisa JACKSON KDOB: [birth year] (74 yo F)Acc No.[id number]:05/05/2024 Patient: Marisa TORRES Provider: Francis Jefferson MD :1950 A ge:73 Y S ex:Female Date:05/05/2024 Address: [address] Pcp:Jason Garcias Subjective: * Chief Complaints: * * Medical History: Objective: * Vitals: Assessment: Plan: * Treatment: * Billing Information: * Visit Code: * Procedure Codes: * Electronic signature of LIZBETH JEFFERSON MD on 11/13/2024 at 05:51 PM CDT Sign off status: Pending * Provider: Francis Jefferson MD Date: 0 05/05/2024 Generated for Rj feldman/Chris/eTransmitting on: 0 11/13/2024 05:51 PM CDT
[2024-11-13 17:47] VITALS: BP 114/67; PULSE 104; RESP 19; TEMP 38.8; O2SAT 88; BMI 41.9
--- OUTSIDE RECORDS SUMMARY | 2024-11-13 17:52 | XMS_ITS | Clinical Summary ---
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
--- OUTSIDE RECORDS SUMMARY | 2024-11-13 17:52 | XMS_ITS | Patient Health Record ---
Author Organization [facility] Address [address] [place] [address] Care Team Providers Care Veneer Redrier Name Role Phone Jason Garcias Primary Care Provider UnavailIsrael Cosby JR Unavailable [phone] Migration, Provider Unavailable Unavailable Bita Ruiz Unavailable [phone] Marce Dumont Unavailable [phone] Allergies Allergen (clinical drug ingredient) Drug/Non Drug Allergy documented on EMR Reaction Allergy Type Onset Date Status Iodine nausea and vomiting Drug Allergy Active methenamine Methenamine Hippurate skin rash Drug Allergy Active Shellfish (FN) Shellfish-derived Products nausea and vomiting Drug Allergy Active Substance with sulfonamide structure and antibacterial mechanism of action (substance) Sulfa Antibiotics Unknown Drug Allergy Active Results Component Value Reference Range Flag Notes Miscellaneous Test Reviewed date:12/03/2023 05:50:44 PM Interpretation: Performing Lab: Notes/Report: Misc Sent to Ref Lab Name of Misc Test hla [id number] NA Culture Urine [id number] Reviewed date:01/20/2024 06:22:55 PM Interpretation: Performing Lab: Notes/Report: Culture Urine Yamilet EDE JACKSON Culture Urine t: Culture Urine Culture Urine Access [id number] Culture Urine n: Culture Urine Microbiology Culture Urine PROCEDURE: Culture Urine [O1] Culture Urine SOURCE: Urine BODY SITE: Culture Urine COLLECTED DATE/TIME: 01/15/2024 14:41 WRAPPING MACHINE HELPER RECEIVED DATE/TIME: 01/15/2024 16:19 WRAPPING MACHINE HELPER Culture Urine START DATE/TIME: 01/15/2024 16:19 WRAPPING MACHINE HELPER FREE TEXT SOURCE: Culture Urine FINAL REPORT Culture Urine Final Report [] Culture Urine Verified Date/Time: 01/17/2024 07:41 WRAPPING MACHINE HELPER Culture Urine > 10,000 cfu/ml mixe d superficial kala Culture Urine Multiple microorganisms present Culture Urine Probable contamination Culture Urine Order Comments Culture Urine O1: Culture Urine (Culture Urine [id number]) Culture Urine Diagnosis Descriptio n: Encounter for follow-up examination after completed treatment for Culture Urine conditions other georgina n malignant neoplasm Microscopic Urine [id number] Reviewed date:01/20/2024 06:22:57 PM Interpretation: Performing Lab: Notes/Report: Diagnosis Description: Encounter for follow-up examination after completed treatment for conditions other than malignant neoplasm RBC U 1 NA WBC U 32 0-5 /HPF HI Bacteria None Seen NA Hyaline Casts <1 NA SQ EPI 1 NA Culture Urine [id number] Reviewed date:02/27/2024 10:19:49 AM Interpretation: Performing Lab: Notes/Report: Culture Urine EDE [place] Culture Urine t: Culture Urine Culture Urine Accessio [id number] Culture Urine n: Culture Urine Microbiology Culture Urine PROCEDURE: Culture Urine [O1] Culture Urine SOURCE: Urine BODY SITE: Culture Urine COLLECTED DATE/TIME: 02/25/2024 14:32 WRAPPING MACHINE HELPER RECEIVED DATE/TIME: 02/25/2024 16:17 WRAPPING MACHINE HELPER Culture Urine START DATE/TIME: 02/25/2024 16:17 WRAPPING MACHINE HELPER FREE TEXT SOURCE: Culture Urine FINAL REPORT Culture Urine Final Report [] Culture Urine Verified Date/Time: 02/27/2024 05:29 WRAPPING MACHINE HELPER Culture Urine <10,000 cfu/ml Mixed Superficial Kala Culture Urine Order Comments Culture Urine O1: Culture Urine (Culture Urine [id number]) Culture Urine Diagnosis Descriptio n: Encounter for follow-up examination after completed treatment for Culture Urine conditions other georgina n malignant neoplasm Microscopic Urine 33785 Reviewed date:02/25/2024 06:24:18 PM Interpretation: Performing Lab: Notes/Report: Diagnosis Description: Encounter for follow-up examination after completed treatment for conditions other than malignant neoplasm RBC U 1 NA WBC U 16 0-5 /HPF HI Bacteria None Seen NA Hyaline Casts <1 NA SQ EPI 5 NA Urinalysis--17995 Reviewed date:12/27/2023 11:32:48 AM Interpretation: Performing Lab: Notes/Report: urine for microscopic evaluation 3501 @ 2011 CT head. 3501 @ 2010 Color UA Yellow NA Clarity UA Clear NA Specific gravity UA 1.011 1.005-1.030 Urine pH 6.5 5.0-8.0 NA Urine Glucose Negative NA Urine Bilirubin Negative NA Urine Ketone Negative NA Urine Blood Negative NA Urine Protein Negative NA Urobilinogen 0.2 0.1-1.0 NA Urine Nitrite Negative NA Urine Leukocyte Negative NA Normal UA Yes Schedule Confirmation Reviewed date:01/20/2024 06:14:14 PM Interpretation: Performing Lab: Notes/Report: Schedule Confirmation Reviewed date:01/20/2024 06:14:20 PM Interpretation: Performing Lab: Notes/Report: Urinalysis--[id number] Reviewed date:02/26/2024 05:41:21 PM Interpretation: Performing Lab: Notes/Report: BGL 172 @2023 2405 @ 2244 2405 @ 2244 Color UA Yellow NA Clarity UA Clear NA Specific gravity UA 1.011 1.005-1.030 Urine pH 6.5 5.0-8.0 NA Urine Glucose Negative NA Urine Bilirubin Negative NA Urine Ketone Negative NA Urine Blood Negative NA Urine Protein Negative NA Urobilinogen 0.2 0.1-1.0 NA Urine Nitrite Negative NA Urine Leukocyte 2+ NA Normal UA No UA Microscopic--[id number] Reviewed date:02/26/2024 05:41:17 PM Interpretation: Performing Lab: Notes/Report: Micro UA ordered by Discern Expert Rules system. BGL 172 @2023 2405 @ 2244 2405 @ 2244 RBC U 1 NA WBC U 51 0-5 /HPF HI Bacteria None Seen Hyaline Casts 1 NA SQ EPI [address] Abdomen, Pelvis w/o Contr [id number] Reviewed date:02/25/2024 06:31:24 PM Interpretation: Performing Lab: Notes/Report: zkr=[id number] CT Abdomen, Pelvis w/o Contr ast-[id number] Reviewed date:02/25/2024 06:31:09 PM Interpretation: Performing Lab: Notes/Report: See Below For Report [facility] CT utilizes automated exposure control, adjustment of the mA and 3534 @ 0914 Read See Below For Report Urinalysis--[id number] Reviewed date:02/25/2024 06:28:02 PM Interpretation: Performing Lab: Notes/Report: Urine microscopic 3534 @ 0914 3534 Color UA Yellow NA Clarity UA Clear NA Specific gravity UA 1.010 1.005-1.030 Urine pH 6.5 5.0-8.0 NA Urine Glucose Trace NA Urine Bilirubin Negative NA Urine Ketone Negative NA Urine Blood Negative NA Urine Protein Negative NA Urobilinogen 0.2 0.1-1.0 NA Urine Nitrite Negative NA Urine Leukocyte 2+ NA Normal UA No UA Microscopic--09213 Reviewed date:02/25/2024 06:27:59 PM Interpretation: Performing Lab: Notes/Report: Micro UA ordered by [employer] Expert Rules system. 3534 @ 0914 3534 RBC U 1 NA WBC U 59 0-5 /HPF HI culture was ad ded Hyaline Casts <1 NA SQ EPI 1 NA CRP 86123 Reviewed date:01/30/2024 02:03:51 PM Interpretation: Performing Lab: Notes/Report: Diagnosis Description: Encounter for follow-up examination after completed treatment for conditions other than malignant neoplasm CRP 1.26 .40-1.00 MG/DL HI Microscopic Urine 83639 Reviewed date:01/30/2024 02:04:22 PM Interpretation: Performing Lab: Notes/Report: Diagnosis Description: Encounter for follow-up examination after completed treatment for conditions other than malignant neoplasm RBC U 2 NA WBC U 174 0-5 /HPF HI Bacteria None Seen NA SQ EPI 4 NA Comprehensive Metabolic Pane l (CMP) 20447 Reviewed date:01/30/2024 02:03:57 PM Interpretation: Performing Lab: Notes/Report: Diagnosis Description: Encounter for follow-up examination after completed treatment for conditions other than malignant neoplasm Glucose Serum 200 71-110 MG/DL HI Testing p erformed at [facility], [address] [place] [address] [place] [address]. CLIA ID#: [id number] BUN 16 7-21 MG/DL Creat .65 .51-1.17 MG/DL Q-zpdlad-x-benzoquin one imine (NAPQI) is a metabolite of acetaminophen, NAPQI concentrations of apparoximately 10 mg/L correlation to toxic levels of acetaminophen demonstrates a greater than or equil to 10% change in results. NAPQI concentrations greater than this may lead to falsely depressed results for patient samples. Use of this assay is not recommended for patients undergoing treatment with phenindione, due to the potential for falsely depressed results. GFR 91.9 NA Calculation pe rformed from GFR calculator provided by the [employer]. Glomerular Filtration rate(GRF) is the best overall index of kidney function. Normal GFR varies according to age,sex, body size, and declines with age. The [employer] recommends using the CKD-EPI Creatinine Equation(2020) to estimate GFR. BUN/Creat Ratio 24.6 12.0-20.0 % HI Total Protein 6.9 5.8-8.0 G/DL Albumin 4.5 3.2-4.8 G/DL Globulin 2.4 2.3-3.5 G/DL Alb/Glob 1.9 0.8-2.2 Calcium 10.3 8.7-10.4 MG/DL Sodium 138 136-145 MMOL/L Potassium 4.9 3.5-5.1 MMOL/L Chloride 100 98-107 MMOL/L CO2 24.9 20.0-31.0 MMOL/L Anion Gap 18 5-15 HI Alk Phos 102 46-116 Bili Total .3 .3-1.2 MG/DL Use of this assay is not recommended for patients undergoing treatment with eltrombopag due to the potential for falsely elevated results. AST/SGOT 18 15-37 UNIT/L ALT/SGPT 20 12-78 UNIT/L Osmo Serum,Calculated 293 280-300 MOSM/KG CBC w\ Auto Diff 18310 Reviewed date:01/30/2024 02:03:54 PM Interpretation: Performing Lab: Notes/Report: Diagnosis Description: Encounter for follow-up examination after completed treatment for conditions other than malignant neoplasm WBC 6.2 4.5-11.0 X10'3 RBC 4.54 4.00-5.20 X10'6 Hgb 13.8 12.0-16.0 G/DL Hct 42.0 36.0-46.0 % MCV 92.5 80.0-100.0 FL MCH 30.4 27.0-31.0 PG MCHC 32.9 31.0-37.0 G/DL Platelet 322 150-400 X10'3 RDW-SD 42.9 35.0-49.0 FL RDW-CV 12.6 12.2-15.6 % MPV 10.6 9.2-12.0 FL Neutro Auto% 54.2 40.0-70.0 % Lymph Auto% 32.5 22.0-44.0 % [place] Auto% 8.3 3.0-7.0 % HI Eos Auto% 4.2 2.0-4.0 % HI Baso Auto% 0.3 0.0-1.0 % Imm Gran% .5 .0-.4 % HI Neutro Abs 3.34 .80-7.70 Absolute Neutrophil Count 3340 NA Lymph Abs 2.00 .10-4.10 [place] Abs .51 .20-1.00 Eos Abs .26 .00-.40 Baso Abs .02 .00-.20 Imm Gran Abs .03 .00-.10 NRBC# .00 .00-.20 X10'3 NRBC% .00 .00-.20 /100 intact WBC's Culture Urine 75515 Reviewed date:02/05/2024 08:09:40 AM Interpretation: Performing Lab: Notes/Report: Culture Urine EDE [place] Culture Urine t: Culture Urine Culture Urine Accessio [id number] Culture Urine n: Culture Urine Microbiology Culture Urine PROCEDURE: Culture Urine [O1] Culture Urine SOURCE: Urine BODY SITE: Culture Urine COLLECTED DATE/TIME: 01/29/2024 15:58 WRAPPING MACHINE HELPER RECEIVED DATE/TIME: 01/29/2024 20:57 WRAPPING MACHINE HELPER Culture Urine START DATE/TIME: 01/29/2024 20:57 WRAPPING MACHINE HELPER FREE TEXT SOURCE: Culture Urine FINAL REPORT Culture Urine Final Report [] Culture Urine Verified Date/Time: 01/31/2024 08:36 WRAPPING MACHINE HELPER Culture Urine > 10,000 cfu/ml mixe d superficial kala Culture Urine Multiple microorganisms present Culture Urine Probable contamination Culture Urine Order Comments Culture Urine O1: Culture Urine (Culture Urine 62011) Culture Urine Diagnosis Descriptio n: Encounter for follow-up examination after completed treatment for Culture Urine conditions other georgina n malignant neoplasm Hemoglobin A1C* Reviewed date:12/10/2023 05:19:53 PM Interpretation: Performing Lab: Notes/Report: HEMOGLOBIN A1c 7.6 Microscopic Urine 44128 Reviewed date:11/20/2023 08:25:32 AM Interpretation: Performing Lab: Notes/Report: Diagnosis Description: Encounter for follow-up examination after completed treatment for conditions other than malignant neoplasm RBC U 1 NA WBC U 18 0-5 /HPF HI Bacteria None Seen NA SQ EPI 1 NA Culture Urine 49391 Reviewed date:11/21/2023 08:29:36 AM Interpretation: Performing Lab: Notes/Report: Culture Urine EDE [place] Culture Urine t: Culture Urine Culture Urine Accessio [id number] Culture Urine n: Culture Urine Microbiology Culture Urine PROCEDURE: Culture Urine [O1] Culture Urine SOURCE: Urine BODY SITE: Culture Urine COLLECTED DATE/TIME: 11/19/2023 17:51 CDT RECEIVED DATE/TIME: 11/19/2023 21:10 CDT Culture Urine START DATE/TIME: 11/19/2023 21:11 CDT FREE TEXT SOURCE: Culture Urine FINAL REPORT Culture Urine Final Report [] Culture Urine Verified Date/Time: 11/21/2023 07:06 CDT Culture Urine > 10,000 cfu/ml mixe d superficial kala Culture Urine Multiple microorganisms present Culture Urine Probable contamination Culture Urine Order Comments Culture Urine O1: Culture Urine (Culture Urine 31065) Culture Urine Diagnosis Descriptio n: Encounter for follow-up examination after completed treatment for Culture Urine conditions other georgina n malignant neoplasm Schedule Confirmation Reviewed date:01/20/2024 06:14:18 PM Interpretation: Performing Lab: Notes/Report: Culture Urine Reflex--[id number] Reviewed date:02/25/2024 06:27:55 PM Interpretation: Performing Lab: Notes/Report: Culture Urine Reflex ROMAN [place] Culture Urine Reflex t: Culture Urine Reflex Culture Urine Reflex Accessio [id number] Culture Urine Reflex n: Culture Urine Reflex Microbiology Culture Urine Reflex PROCEDURE: Culture Urine Reflex [] Culture Urine Reflex SOURCE: U CC BODY SITE: Culture Urine Reflex COLLECTED DATE/TIME : 02/17/2024 11:17 WRAPPING MACHINE HELPER RECEIVED DATE/TIME: 02/17/2024 12:19 WRAPPING MACHINE HELPER Culture Urine Reflex START DATE/TIME: 02/17/2024 12:19 WRAPPING MACHINE HELPER FREE TEXT SOURCE: Culture Urine Reflex FINAL REPORT Culture Urine Reflex Final Report [] Culture Urine Reflex Verified Date/Time: 02/21/2024 06:56 WRAPPING MACHINE HELPER Culture Urine Reflex No growth at 48 hours Reason For Referral Reason Eval and treat Dem entia Diagnosis 1 Dementia without beh avioral disturbance, psychotic disturbance, mood disturbance, or anxiety, unspecified dementia severity, unspecified dementia type (F03.90) Referral Organization [facility] Referring Provider First Name Israel Referring Provider Last Name Samantha Referring Provider Speciality Infectious Disease Referred Provider Specialty Neurology Referral Priority Routine Medications Medication SIG (Take, Route, Frequency, Duration) Notes Start Date End Date Status Soliqua 100-33 UNT-MCG/ML Solution Pen-injector Inject up to 60 units Subcutaneous Once daily; Duration: 30 days Dx: E11.65 Active carBAMazepine 200 MG Tablet 1 tablet Orally Twice a day; Duration: 30 days 4 Active carBAMazepine 100 MG Tablet Chewable 1 tablet Orally Twice a day; Duration: 30 days 4 Active Biotin 5000 5 MG Capsule 1 capsule Orall y Once a day; Duration: 30 days Active Accu-Chek Guide - Strip as directed. Dx E11.65 Diabetes Type 2 with hyperglycemia In Vitro Once daily; Duration: 90 days DX: E11.65 Diabetes type 2 with hyperglycemia 3 Not-Taking Vitamin D3 1.25 MG (50530 UT) Tablet 1 tablet Orally Once weekly Active Vitamin C 500 MG Tablet 1 tablet Orally Once a day Active Venlafaxine HCl 75 MG Tablet 2 tablets qam 1 tablet qpm Orally Active Valsartan 160 MG Tablet 1 tablet Orally Once a day Active Tylenol 8 Hour Arthritis Pain 650 MG Tablet Extended Release 2 tablets Orally Twice daily Active ZyrTEC Not-Taking Ondansetron HCl 4 MG Tablet 1 tablet Orally Once a day Active Multiple Vitamins - Tablet 1 tablet Orally Once a day Active VESIcare 5 MG Tablet 1 tablet Orally Once a day Not-Taking metFORMIN HCl ER 500 MG Tablet Extended Release 24 Hour 1 tablets Orally Once a day; Duration: 90 days Active Ranitidine HCl Not-T aking Promethazine HCl 25 MG Tablet 1 tablet Orally prn Not-Taking Pravastatin Sodium 40 MG Tablet 1 tablet Orally Once a day Not-Taking Hydroxychloroquine Sulfate 200 MG Tablet 1 tablet Orally bid Active HYDROcodone-Acetaminophe n 5-325 MG Tablet 1 tablet as needed Orally every 6 hrs Active glipiZIDE 10 MG Tablet 1 tablet Orally twice per day Active Pen [place] 31G X 6 MM Miscellaneous as directed with Soliqua Daily; Duration: 90 days 3 Not-Taking Gabapentin 300 MG Capsule 1 capsule at bedtime Orally three times daily; Duration: 30 days 4 Active Ozempic Not-Taking FreeStyle Tong 3 Sensor Active Methotrexate 2.5 MG Tablet 6 tablets Orally one a week Not-Taking Folic Acid 800 MCG Tablet 2 tablet Orally Once a day Active metFORMIN HCl ER 500 MG Tablet Extended Release 24 Hour 1 tablet Orally bid Not-Taking Fluticasone Propionate 50 MCG/ACT Suspension 1 spray in each nostril Nasally prn Active metFORMIN HCl ER 500 MG Tablet Extended Release 24 Hour 1 tablet with meal Orally Once a day; Duration: 90 days 3 Not-Taking Estradiol 0.1 MG/24HR Patch Weekly 1 patch to skin Transdermal Active hydroCHLOROthiazide Not-Taking Clear Eyes Complete - Solution 1-2 drops Ophthalmic qid Active Ertapenem Sodium 1 GM Solution Reconstituted IM daily M-F Injection Not-Taking Aspirin 325 MG Tablet 1 tablet Orally Once a day; Duration: 30 day(s) 0 Not-Taking Accu-Chek Guide w/Device Kit Use to check blood glucose. Dx E11.65 Diabetes Type 2 with hyperglycemia In Vitro with test strips ONCE DAILY; Duration: 365 days DX: E11.65 Diabetes type 2 with hyperglycemia Not-Taking Immunizations Vaccine Route Administration Date Status Comme nts Influenza (whole), CPT 16320 Inactive Unknown 12/19/2016 Administered Influenza, seasonal, injecta ble, preservative free, 3 yrs and above Unknown 01/07/2018 Administered Influenza, seasonal, injecta ble, preservative free, 3 yrs and above Unknown 07/30/2019 Refused Pneumococcal polysaccharide PPV23 Unknown 03/29/2017 Ad ministered Social History Tobacco Use: Social History Observation Description Date Details (start date - stop date) Never Smoker NA - NA Social History Depression Screening Social Info Question Answer Notes PHQ-9 Little interest or pleasure in doing thin gs Several days Feeling down, depressed, or hopeless Several day s Trouble falling or staying a sleep, or sleeping too much Several days Feeling tired or having little energy More than half the days Poor appetite or overeating Several days Feeling bad about yourself, or that you are a failure, or have let yourself or your family down Several days Trouble concentrating on thi ngs, such as reading the newspaper or watching television Several days Moving or speaking so slowly that other people could have noticed. Or the opposite ? being so fidgety or restless that you have been moving around a lot more than usual Not at all Thoughts that you would be b liliana off , or of hurting yourself in some way Several days (Consider Suicide Assessment Risk) Total Score 9 Interpretation Mild Depression Drugs/Alcohol: Social Info Question Answer Notes Alcohol Screen (Audit-C) Did you have a drink containing alcohol in the past year? No Points 0 Interpretation Negative Drugs Have you used drugs other than those for medical reasons in the past 12 months? No Tobacco Use: Social Info Question Answer Notes Tobacco Control (Standard) Tobacco use: Nonsmoker Additional Details Category Social Info Options Details Miscellaneous: Marital status: Occupation: Retired Drugs/Alcohol: Do you smoke marijuana? De nies Do you drink alcohol? No zzMigrated Social History Migrated Social History Social History(Smoking(MU):):Smoking Status: Non-smoker ;Social History(Occupation:):Retired ; Problems Problem Type SNOMED Code ICD Code Onset Dates Problem Status W/U Status Risk Notes Problem Hyperglycemia due to type 2 diabetes mellitus (658243044522176) Type 2 diabetes mellitus with hyperglycemia (E11.65) Active confirmed Problem Chronic pain (37394759) Other chronic pain (G89.29) Active confirmed Problem Urge incontinence of urine (88483140) Urge incontinence (N39.41) Active confirmed Problem Mixed incontinence (411885294) Mixed incontinence (N39.46) Active confirmed Problem Long-term current use of insulin (592048642) alf (current) use of insulin (Z79.4) Active confirmed Problem Chronic bladder pain (R39.82) Active confirmed Problem Chronic cystitis (00678620) Chronic cystitis (N30.20) Active confirmed Problem Hyperglycemia due to type 2 diabetes mellitus (330311748318022) Type 2 diabetes mellitus with hyperglycemia, without long-term current use of insulin (E11.65) Active confirmed Problem Hyperlipidaemia (30742362) Hyperlipidemia, unspecified hyperlipidemia type (E78.5) Active confirmed Problem Long-term current use of anticoagulant (816761151) Anticoagulant long-term use (Z79.01) Active confirmed Problem Obesity (781467793) Obesity (BMI 30-39.9) (E66.9) Active confirmed Problem Atherosclerosis (43270349) Atherosclerosis (I70.90) Active confirmed Problem Atrophic vaginitis (05638181) Atrophic vaginitis (N95.2) Active confirmed Problem Diabetic peripheral neuropathy (137303237) Diabetic peripheral neuropathy (E11.42) Active confirmed Problem Chronic depression (080150544) Chronic depression (F32.9) Active confirmed Problem SI - Stress incontinence (01082276) Stress incontinence (N39.3) Active confirmed Problem Carotid artery occlusion (758428233) Stenosis of carotid artery, unspecified laterality (I65.29) Active confirmed Problem Herniation of rectum into vagina (631182035) Pelvic organ prolapse quantification stage 1 rectocele (N81.6) Active confirmed Problem Dementia (18947185) Dementia without behavioral disturbance, psychotic disturbance, mood disturbance, or anxiety, unspecified dementia severity, unspecified dementia type (F03.90) Active confirmed Problem Chronic interstitial cystitis (641005535) Bladder pain syndrome (N30.10) Active confirmed Vital Signs Heart Rate 80 /min 02/26/2024 Temperature 96.0 degrees Fahrenheit 02/26/2024 Respiratory Rate 17 /min 02/26/2024 Oximetry 93 % 02/26/2024 Height-cm 168.91 cm 02/26/2024 Blood pressure diastolic 69 mm Hg 02/26/2024 Weight-kg 97.07 kg 02/25/2024 Height 66.5 in 02/26/2024 Blood pressure systolic 133 mm Hg 02/26/2024 Weight 214 lbs 02/25/2024 BMI 34.02 kg/m2 02/25/2024 Encounters Encounter Location Date Provider Diagnosis [facility] [address] [place] [address], [place] [address] 11/19/2023 Israel Singh Personal history of urinary (tract) infections Z87.440 ; Encounter for follow-up examination after completed treatment for conditions other than malignant neoplasm Z09 ; Encounter for long-term (current) drug use Z79.899 and Recurrent UTI (urinary tract infection) N39.0 [facility] [address] [place] [address], [place] [address] 12/03/2023 Israel Singh Personal history of urinary (tract) infections Z87.440 ; Encounter for follow-up examination after completed treatment for conditions other than malignant neoplasm Z09 ; Encounter for long-term (current) drug use Z79.899 ; Recurrent UTI (urinary tract infection) N39.0 ; Bladder pain syndrome N30.10 and Type 2 diabetes mellitus with hyperglycemia E11.65 [facility] [address] [place] [address] 12/06/2023 Marce Dumont Type 2 diabetes mellitus with hyperglycemia E11.65 ; application development consultant (current) use of insulin Z79.4 ; Obesity (BMI 30-39.9) E66.9 and Uses self-applied continuous glucose monitoring device Z97.8 [facility] [address] [place] [address], [place] [address] 01/15/2024 Israel Singh Personal history of urinary (tract) infections Z87.440 ; Encounter for follow-up examination after completed treatment for conditions other than malignant neoplasm Z09 ; Encounter for long-term (current) drug use Z79.899 ; Recurrent UTI (urinary tract infection) N39.0 ; Bladder pain syndrome N30.10 and Type 2 diabetes mellitus with hyperglycemia E11.65 [facility] [address] [place] [address], [place] [address] 01/20/2024 Israel Singh Personal history of urinary (tract) infections Z87.440 ; Encounter for follow-up examination after completed treatment for conditions other than malignant neoplasm Z09 ; Encounter for long-term (current) drug use Z79.899 ; Recurrent UTI (urinary tract infection) N39.0 ; Bladder pain syndrome N30.10 and Type 2 diabetes mellitus with hyperglycemia E11.65 [facility] [address] [place] [address], [place] [address] 01/29/2024 Israel Singh Personal history of urinary (tract) infections Z87.440 ; Encounter for follow-up examination after completed treatment for conditions other than malignant neoplasm Z09 ; Encounter for long-term (current) drug use Z79.899 ; Recurrent UTI (urinary tract infection) N39.0 ; Bladder pain syndrome N30.10 and Type 2 diabetes mellitus with hyperglycemia E11.65 [facility] [address] [place] [address] [address] 02/03/2024 Israel Singh Personal history of urinary (tract) infections Z87.440 ; Encounter for follow-up examination after completed treatment for conditions other than malignant neoplasm Z09 ; Encounter for long-term (current) drug use Z79.899 ; Recurrent UTI (urinary tract infection) N39.0 ; Bladder pain syndrome N30.10 and Type 2 diabetes mellitus with hyperglycemia E11.65 [facility] [address] [place] [address], [place] [address] 02/25/2024 Israel Singh Personal history of urinary (tract) infections Z87.440 ; Encounter for follow-up examination after completed treatment for conditions other than malignant neoplasm Z09 ; Encounter for long-term (current) drug use Z79.899 ; Recurrent UTI (urinary tract infection) N39.0 ; Bladder pain syndrome N30.10 and Type 2 diabetes mellitus with hyperglycemia E11.65 [facility] [address] [place] [address], [place] [address] 02/26/2024 Israel Singh Personal history of urinary (tract) infections Z87.440 ; Encounter for follow-up examination after completed treatment for conditions other than malignant neoplasm Z09 ; Encounter for long-term (current) drug use Z79.899 ; Recurrent UTI (urinary tract infection) N39.0 ; Bladder pain syndrome N30.10 and Type 2 diabetes mellitus with hyperglycemia E11.65 Migrated[facility]Facility 0 0 12/14/2023 Provider Migration Migrated_Facility 0 0 12/15/2023 Provider Migration [facility] [address] [place] [address], [place] [address] 11/18/2023 Israel Singh [facility] [address] [place] [address], [place] [address] 11/20/2023 Israel Samantha [facility] [address] [place] [address], [place] [address] 02/07/2024 Israel Samantha [facility] [address] [place] [address], [place] [address] 03/31/2024 Marce Dumont [facility] [address] [place] [address] [place] [address] 04/16/2024 Israel Samantha [facility] [address] [place] [address] 04/23/2024 Marce Arielleellen Type 2 diabetes mellitus with hyperglycemia E11.65 [facility] [address] [place] [address] [place] [address] 06/04/2024 Israel Singh [facility] [address] [place] [address] 06/10/2024 Marce Dumont Assessments Encounter Date Diagnosis (ICD Code) Assessment Notes Treatment Notes Treatment Clinical Notes Section Notes 11/19/2023 Personal history of urinary (tract) infections (ICD-10 - Z87.440) 1. Recurrent urinary tract infections - 2. Bladder pain syndrome 2. symptomatic today 11-05-23 - UC with ESBL EC 2. Cystoscopy at Dr. Jefferson's office with severe inflammation She has had a bladder tumor resection with negative malignancy 3. CT of the abdomen 12/2022 Nephrolithiasis on the left without obstruction with some adjacent cortical scarring, unchanged 4. 11-12-23; severe symptoms and completely negative UW, and UC 11-19-23; severe symptoms, she is convinced she has a UTI, also s/p 2 weeks of fosfomycin, and IM In vanz will check UW, UC once again. however increase neurontin to 300mg AM, 300mg noon, and 600mg at HS. check HLA B 1502, and consider carbamezepine. -consider myrbetriq 5. 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 combination bladder pain, and occ. UTI f/u 1 - 2 weeks ITomi , am scribing for, and in the presence , of Dr. Singh. I, Dr. Singh, personally performed the services prescribed in this documentation, as scribed by Tomi Shin , in my presence and it is both accurate and complete 12/03/2023 Personal history of urinary (tract) infections (ICD-10 - Z87.440) 1. Recurrent urinary tract infections - 2. Bladder pain syndrome -refill Gabapentin for pain control 3. 3 UTI symptomatic pain 4.. Cystoscopy at Dr. Jefferson's office with severe inflammation She has had a bladder tumor resection with negative malignancy 5. CT of the abdomen 12/2022 Nephrolithiasis on the left without obstruction with some adjacent cortical scarring, unchanged 7. Prophylaxis for UTI w/methenamine 8. Will Re-order this lab test today 12-03-23, check HLA B 1502 for Tegretol use. Lab test as it was not run last time. Reinstutiue gabapentin for Bladder pain syndrome. LABS Follow up: 3-4 weeks Jennifer Ho CMA 12/06/2023 Type 2 diabetes mellitus with hyperglycemia (ICD-10 - E11.65) A1C is checked, result is 7.6% [employer] 3 data download complete, information interpreted and reviewed with patient. The patient has an average blood glucose of 201 mg/dL with most hyperglycemia noted after meals. Discussed increasing the Soliqua, but patient is starting to have some GI upset, so she will stay at 50 Units once daily. Encouraged patient to continue to take all medications as directed and follow a low carbohydrate heart healthy diet, eat low carbohydrate snacks and drink only non-calorie beverages. Patient verbalizes understanding of all instructions and all questions are answered. Patient agrees to follow up with her primary care clinic as directed and with [facility] in three months or PRN. Total time is 35 minutes. 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 73 year old female with a prior history of HTN, chronic cystitis, Type 2 diabetes mellitus, and history of candidal UTI. 2. Bladder pain syndrome, inflammatory cystitis, and recurrent UTI's.- recent history of multiple negative cultures, and urine microscopic studies, despite being symptomatic 3. recurrent UTI- 01-15-24 -01-15-[address] of the abdomen 12/2022 Nephrolithiasis on the left without obstruction with some adjacentcortical scarring, unchanged 5. 01-15-24 Start Fosfomycin prophylaxis , one dose once a week for UTI prevention. 6. Bladder pain syndrome. - Continue Neurontin 300mg TID -01-15-24 Start Carbamazepine 100mg BID LABS 12-03-23 HLA-B*15:02 Negative 12-26-23 UA Color yellow, clear Sp.[place] 1.011, U pH 6.5, U glucose negative, U bili negative, Ketone neg, Blood neg, Protein neg, Urobili 0.2, Nitrite neg, Leuko neg. 01-06-24 W 5.6, Dirt Bike Racer 0.63 Follow up: 2 weeks , ordered 01-15-24 Jennifer Ho [facility] 01/20/2024 Personal history of urinary (tract) infections (ICD-10 - Z87.440) 1. 73 year old female with a prior history of HTN, chronic cystitis, Type 2 diabetes mellitus, and history of candidal UTI. 2. Bladder pain syndrome, inflammatory cystitis, and recurrent UTI's.- recent history of multiple negative cultures, and urine microscopic studies, despite being symptomatic -01-20-24 large amount of pus cells - 01-20-24 lab culture shows no bacteria 3. 01-20-24 recurrent UTI, symptomatic -injection of Invanz 1000mg IM 01-20-24 4. 01-19-24 pyriua with neg cultures suggestive of cystitis, refer back to Urology 5. Continue Fosfomycin prophylaxis, started 01-18-24, one dose once a week for UTI prevention. -01-15-24 discontinued Methenamine 6. Bladder pain syndrome. - Continue Neurontin 300mg TID - continue Carbamazepine 100mg BID, no side effects raise dose next week 7. Refer back to Urologist to find out what is causing inflammation and scope - recommend [facility] for second opinion and to review case LABS 12-03-23 HLA-B*15:02 Negative 12-26-23 UA Color yellow, clear Sp.[place] 1.011, U pH 6.5, U glucose negative, U bili negative, Ketone neg, Blood neg, Protein neg, Urobili 0.2, Nitrite neg, Leuko neg. 01-06-24 W 5.6, Dirt Bike Racer 0.63 01-15-24 UC > 10,000 cfu/ml mixed superficial kala F Multiple microorganisms present, Probable contamination, UM RBC U 1, WBC U 32, JUAN J none seen, Hy.Cast <1, SQ epi 1 Follow up: 01-21-24 and in one week Jennifer Ho [facility] 01/29/2024 Personal history of urinary (tract) infections (ICD-10 - Z87.440) 1. 73 year old female with a prior history of HTN, chronic cystitis, Type 2 diabetes mellitus, and history of candidal UTI. 2. Bladder pain syndrome, inflammatory cystitis, and recurrent UTI's.- recent history of multiple negative cultures, and urine microscopic studies, despite being symptomatic -01-20-24 large amount of pus cells - 01-20-24 lab culture shows no bacteria - 01-20-24 recurrent UTI, symptomatic -injection of Invanz 1000mg IM 01-20-24 3. 01-29-24 Asymptomatic today but still not feeling well. 4. 01-19-24 pyriua with neg cultures suggestive of cystitis, refer back to Urology 5. 01-29-24 Continue Fosfomycin prophylaxis, started 01-18-24, one dose once a week for UTI prevention. -01-29-24 restart Methenamine BID 6. Bladder pain syndrome. - 01-29-24 Continue Gabapentin 300mg TID - 01-29-24 continue Carbamazepine, increase from 100mg BID to 200mg BID 7. Refer back to Urologist to find out what is causing inflammation and scope. - 01-29-24 Patients spoke with Vik Melgoza for second opinion. Vik Melgoza said no need after reviewing ca/med records as they felt getting excellent treatment by Inf. Disease here at [facility]. LABS 12-03-23 HLA-B*15:02 Negative 12-26-23 UA Color yellow, clear Sp.[place] 1.011, U pH 6.5, U glucose negative, U bili negative, Ketone neg, Blood neg, Protein neg, Urobili 0.2, Nitrite neg, Leuko neg. 01-06-24 W 5.6, Dirt Bike Racer 0.63 01-15-24 UC > 10,000 cfu/ml mixed superficial kala F Multiple microorganisms present, Probable contamination, UM RBC U 1, WBC U 32, JUAN J none seen, Hy.Cast <1, SQ epi 1 FOLLOW UP: Saturday02-03-24 UC, UM, CBC,CRP,COMP 01-29-24 RafaelSheyla starkshamar Barnhart [facility] 02/03/2024 Personal history of urinary (tract) infections (ICD-10 - Z87.440) 1. 73 year old female with a prior history of HTN, chronic cystitis, Type 2 diabetes mellitus, and history of candidal UTI. 2. Bladder pain syndrome, inflammatory cystitis, and recurrent UTI's.- recent history of multiple negative cultures, and urine microscopic studies, despite being symptomatic. -CRP elevated 01-29-24 - 01-29-24; U WBC 175, but UC negatibver, now she has AMS; refer to the ER, repeat studies, may have some un derlying early dementia 3. 02-03-24 Continue Fosfomycin prophylaxis, started 01-18-24, one dose once a week for UTI prevention; prophylaxis as an OP will probably need to be INvanz weekly, with secondary antibiotics (cipro, doxy, Levaquin, etc.) to cover broad spectrum of potential UTI causes -01-29-24 Discontinued Methenamine due to rash 4. Bladder pain syndrome. - 02-03-24 Continue Gabapentin 300mg TID - 02-03-24 continue Carbamazepine, increase from 100mg BID to 200mg BID 5. Go to ER for repeat urine, WBC and may need to be admitted. -Per ; Hallucinations at night, cognitive issues, falling at home ( worried about caring for her) LABS 12-03-23 HLA-B*15:02 Negative 12-26-23 UA Color yellow, clear Sp.[place] 1.011, U pH 6.5, U glucose negative, U bili negative, Ketone neg, Blood neg, Protein neg, Urobili 0.2, Nitrite neg, Leuko neg. 01-06-24 W 5.6, Dirt Bike Racer 0.63 01-15-24 UC > 10,000 cfu/ml mixed superficial kala F Multiple microorganisms present, Probable contamination, UM RBC U 1, WBC U 32, JUAN J none seen, Hy.Cast <1, SQ epi 1 01-29-24 W 6.2, Dirt Bike Racer .65, CRP 1.26, UC > 10,000 cfu/ml mixed superficial kala, UM RBC U 2, WBC U 174, JUAN J non seen, SQ epi 4 FOLLOW UP: 1 week Jennifer Ho 02/25/2024 Personal history of urinary (tract) infections (ICD-10 - Z87.440) 1. 73 year old female with a prior history of HTN, chronic cystitis, Type 2 diabetes mellitus, and history of candidal UTI. 2. Cysto 02/2023 that revealed severe inflammation., without infection. -scheduled for another cystoscopy on 04-01-2024 3. atypical recurrent complicated UTIs, with negative cultures- 02-15-24, CT scan of the abdomen: negative for sources of recurrent complicated infectious sources- aks for urology consultation Saturday- 12-21-23 UC: ESBL E coli- 12-21-23; U WBC 276 (far above her baseline of 20-40)- 01-04-24; U WBC 888, culture negative this morning.- developed on methenamine and fosfomycin prophylaxis.- 01-29-24; UC negative while U WBC was >999- 02-15-24 UC negative with U WBC of 853- repeat the urine today- very atypical for severe systemic symptoms, severe pyuria, and yet repeated negative UC's. 4. Antibiotics: 02-25-24 continue with Meropenem.-Day # 12 (Start date 02-13-24) duration of therapy 4-6 weeks -02-25-24 Discontinue on Carbamazapine -02-25-24 stop Gabapentin 5. Urine studies from Dr. Álvarez office negative 1 day ago, no access to those results. UC,UM ordered today and pt to come back 02-26-24. 6. Brain Scan showed moderate atrophy -02-25-24 Mental status changes -02-25-24 dizziness, confusion, falls LABS 01-29-24 W 6.2, Dirt Bike Racer .65, CRP 1.26, UC > 10,000 cfu/ml mixed superficial kala, UM RBC U 2, WBC U 174, JUAN J non seen, SQ epi 4 02-16-24 W 5.6, Dirt Bike Racer 0.60, CRP 0.64 02-17-24 UC no growth @ 48 hrs, UM RBC 1, WBC 59, FOLLOW UP: 02-26-24 Patient at [facility] [place] [place] in [place], [place] Jennifer Ho 02/26/2024 Personal history of urinary (tract) infections (ICD-10 - Z87.440) 1. 73 year old female with a prior history of HTN, chronic cystitis, Type 2 diabetes mellitus, and history of candidal UTI. 2. Cysto 02/2023 that revealed severe inflammation., without infection. -scheduled for another cystoscopy on 04-01-2024 3. atypical recurrent complicated UTIs, with negative cultures, - developed on methenamine and fosfomycin prophylaxis. - 12-21-23 UC: ESBL E coli- 12-21-23; U WBC 276 (far above her baseline of 20-40) - 01-04-24; U WBC 888, culture negative this morning - 01-29-24; UC negative while U WBC was >999 - 02-15-24 UC negative with U WBC of 853 - 02-15-24, CT scan of the abdomen: negative for sources of recurrent complicated infectious sources - very atypical for severe systemic symptoms, severe pyuria, and yet repeated negative UC's. 4. Antibiotics: 02-26-24 continue with Meropenem.-Day # 13 (Start date 02-13-24) duration of therapy 4-6 weeks -02-25-24 Discontinue Carbamazapine -02-25-24 stop Gabapentin 5. Urine studies from Dr. Álvarez office negative 1 day ago, no access to those results. -02-26-24 UC/UM both negative -02-26-24 WBC 16 elevated 6. Possible early dementia, Brain scan showed some atrophy -02-25-24 Mental status changes, -02-25-24 dizziness, confusion, falls LABS 01-29-24 W 6.2, Dirt Bike Racer .65, CRP 1.26, UC > 10,000 cfu/ml mixed superficial kala, UM RBC U 2, WBC U 174, JUAN J non seen, SQ epi 4 02-16-24 W 5.6, Dirt Bike Racer 0.60, CRP 0.64 02-17-24 UC no growth @ 48 hrs, UM RBC 1, WBC 59 02-25-24 UC no growth overnight, UM RBC 1, WBC 16, JUAN J none seen, Hy. Cast <1, SQ epi 5 FOLLOW UP: 1 week Patient at [facility] [place] [place] in [place], [place] Jennifer Ho 04/23/2024 Type 2 diabetes mellitus with hyperglycemia (ICD-10 - E11.65) Reviewed Tong 3 cgm data, hua BG is 194 mg/dL, okay to increase the Soliqua to 60 Units daily 02/25/2024 Encounter for follow-up examination after completed treatment for conditions other than malignant neoplasm (ICD-10 - Z09) 1. 73 year old female with a prior history of HTN, chronic cystitis, Type 2 diabetes mellitus, and history of candidal UTI. 2. Cysto 02/2023 that revealed severe inflammation., without infection. -scheduled for another cystoscopy on 04-01-2024 3. atypical recurrent complicated UTIs, with negative cultures- 02-15-24, CT scan of the abdomen: negative for sources of recurrent complicated infectious sources- aks for urology consultation Saturday- 12-21-23 UC: ESBL E coli- 12-21-23; U WBC 276 (far above her baseline of 20-40)- 01-04-24; U WBC 888, culture negative this morning.- developed on methenamine and fosfomycin prophylaxis.- 01-29-24; UC negative while U WBC was >999- 02-15-24 UC negative with U WBC of 853- repeat the urine today- very atypical for severe systemic symptoms, severe pyuria, and yet repeated negative UC's. 4. Antibiotics: 02-25-24 continue with Meropenem.-Day # 12 (Start date 02-13-24) duration of therapy 4-6 weeks -02-25-24 Discontinue on Carbamazapine -02-25-24 stop Gabapentin 5. Urine studies from Dr. Álvarez office negative 1 day ago, no access to those results. UC,UM ordered today and pt to come back 02-26-24. 6. Brain Scan showed moderate atrophy -02-25-24 Mental status changes -02-25-24 dizziness, confusion, falls LABS 01-29-24 W 6.2, Dirt Bike Racer .65, CRP 1.26, UC > 10,000 cfu/ml mixed superficial kala, UM RBC U 2, WBC U 174, JUAN J non seen, SQ epi 4 02-16-24 W 5.6, Dirt Bike Racer 0.60, CRP 0.64 02-17-24 UC no growth @ 48 hrs, UM RBC 1, WBC 59, FOLLOW UP: 02-26-24 Patient at [facility] [place] in [place], [place] Jennifer Ho 02/26/2024 Encounter for follow-up examination after completed treatment for conditions other than malignant neoplasm (ICD-10 - Z09) 1. 73 year old female with a prior history of HTN, chronic cystitis, Type 2 diabetes mellitus, and history of candidal UTI. 2. Cysto 02/2023 that revealed severe inflammation., without infection. -scheduled for another cystoscopy on 04-01-2024 3. atypical recurrent complicated UTIs, with negative cultures, - developed on methenamine and fosfomycin prophylaxis. - 12-21-23 UC: ESBL E coli- 12-21-23; U WBC 276 (far above her baseline of 20-40) - 01-04-24; U WBC 888, culture negative this morning - 01-29-24; UC negative while U WBC was >999 - 02-15-24 UC negative with U WBC of 853 - 02-15-24, CT scan of the abdomen: negative for sources of recurrent complicated infectious sources - very atypical for severe systemic symptoms, severe pyuria, and yet repeated negative UC's. 4. Antibiotics: 02-26-24 continue with Meropenem.-Day # 13 (Start date 02-13-24) duration of therapy 4-6 weeks -02-25-24 Discontinue Carbamazapine -02-25-24 stop Gabapentin 5. Urine studies from Dr. Álvarez office negative 1 day ago, no access to those results. -02-26-24 UC/UM both negative -02-26-24 WBC 16 elevated 6. Possible early dementia, Brain scan showed some atrophy -02-25-24 Mental status changes, -02-25-24 dizziness, confusion, falls LABS 01-29-24 W 6.2, Dirt Bike Racer .65, CRP 1.26, UC > 10,000 cfu/ml mixed superficial kala, UM RBC U 2, WBC U 174, JUAN J non seen, SQ epi 4 02-16-24 W 5.6, Dirt Bike Racer 0.60, CRP 0.64 02-17-24 UC no growth @ 48 hrs, UM RBC 1, WBC 59 02-25-24 UC no growth overnight, UM RBC 1, WBC 16, JUAN J none seen, Hy. Cast <1, SQ epi 5 FOLLOW UP: 1 week Patient at [facility] [place] in [place], [place] Vic Jennifershamar Barnhart 01/29/2024 Encounter for follow-up examination after completed treatment for conditions other than malignant neoplasm (ICD-10 - Z09) 1. 73 year old female with a prior history of HTN, chronic cystitis, Type 2 diabetes mellitus, and history of candidal UTI. 2. Bladder pain syndrome, inflammatory cystitis, and recurrent UTI's.- recent history of multiple negative cultures, and urine microscopic studies, despite being symptomatic -01-20-24 large amount of pus cells - 01-20-24 lab culture shows no bacteria - 01-20-24 recurrent UTI, symptomatic -injection of Invanz 1000mg IM 01-20-24 3. 01-29-24 Asymptomatic today but still not feeling well. 4. 01-19-24 pyriua with neg cultures suggestive of cystitis, refer back to Urology 5. 01-29-24 Continue Fosfomycin prophylaxis, started 01-18-24, one dose once a week for UTI prevention. -01-29-24 restart Methenamine BID 6. Bladder pain syndrome. - 01-29-24 Continue Gabapentin 300mg TID - 01-29-24 continue Carbamazepine, increase from 100mg BID to 200mg BID 7. Refer back to Urologist to find out what is causing inflammation and scope. - 01-29-24 Patients spoke with Vik Melogza for second opinion. Vik Melgoza said no need after reviewing ca/med records as they felt getting excellent treatment by Inf. Disease here at [facility]. LABS 12-03-23 HLA-B*15:02 Negative 12-26-23 UA Color yellow, clear Sp.[place] 1.011, U pH 6.5, U glucose negative, U bili negative, Ketone neg, Blood neg, Protein neg, Urobili 0.2, Nitrite neg, Leuko neg. 01-06-24 W 5.6, Dirt Bike Racer 0.63 01-15-24 UC > 10,000 cfu/ml mixed superficial kala F Multiple microorganisms present, Probable contamination, UM RBC U 1, WBC U 32, JUAN J none seen, Hy.Cast <1, SQ epi 1 FOLLOW UP: Saturday02-03-24 UC, UM, CBC,CRP,COMP 01-29-24 Jennifer Ho [facility] 02/03/2024 Encounter for follow-up examination after completed treatment for conditions other than malignant neoplasm (ICD-10 - Z09) 1. 73 year old female with a prior history of HTN, chronic cystitis, Type 2 diabetes mellitus, and history of candidal UTI. 2. Bladder pain syndrome, inflammatory cystitis, and recurrent UTI's.- recent history of multiple negative cultures, and urine microscopic studies, despite being symptomatic. -CRP elevated 01-29-24 - 01-29-24; U WBC 175, but UC negatibver, now she has AMS; refer to the ER, repeat studies, may have some un derlying early dementia 3. 02-03-24 Continue Fosfomycin prophylaxis, started 01-18-24, one dose once a week for UTI prevention; prophylaxis as an OP will probably need to be INvanz weekly, with secondary antibiotics (cipro, doxy, Levaquin, etc.) to cover broad spectrum of potential UTI causes -01-29-24 Discontinued Methenamine due to rash 4. Bladder pain syndrome. - 02-03-24 Continue Gabapentin 300mg TID - 02-03-24 continue Carbamazepine, increase from 100mg BID to 200mg BID 5. Go to ER for repeat urine, WBC and may need to be admitted. -Per ; Hallucinations at night, cognitive issues, falling at home ( worried about caring for her) LABS 12-03-23 HLA-B*15:02 Negative 12-26-23 UA Color yellow, clear Sp.[place] 1.011, U pH 6.5, U glucose negative, U bili negative, Ketone neg, Blood neg, Protein neg, Urobili 0.2, Nitrite neg, Leuko neg. 01-06-24 W 5.6, Dirt Bike Racer 0.63 01-15-24 UC > 10,000 cfu/ml mixed superficial kala F Multiple microorganisms present, Probable contamination, UM RBC U 1, WBC U 32, JUAN J none seen, Hy.Cast <1, SQ epi 1 01-29-24 W 6.2, Dirt Bike Racer .65, CRP 1.26, UC > 10,000 cfu/ml mixed superficial kala, UM RBC U 2, WBC U 174, JUAN J non seen, SQ epi 4 FOLLOW UP: 1 week Jennifer Ho 01/20/2024 Encounter for follow-up examination after completed treatment for conditions other than malignant neoplasm (ICD-10 - Z09) 1. 73 year old female with a prior history of HTN, chronic cystitis, Type 2 diabetes mellitus, and history of candidal UTI. 2. Bladder pain syndrome, inflammatory cystitis, and recurrent UTI's.- recent history of multiple negative cultures, and urine microscopic studies, despite being symptomatic -01-20-24 large amount of pus cells - 01-20-24 lab culture shows no bacteria 3. 01-20-24 recurrent UTI, symptomatic -injection of Invanz 1000mg IM 01-20-24 4. 01-19-24 pyriua with neg cultures suggestive of cystitis, refer back to Urology 5. Continue Fosfomycin prophylaxis, started 01-18-24, one dose once a week for UTI prevention. -01-15-24 discontinued Methenamine 6. Bladder pain syndrome. - Continue Neurontin 300mg TID - continue Carbamazepine 100mg BID, no side effects raise dose next week 7. Refer back to Urologist to find out what is causing inflammation and scope - recommend Wash U for second opinion and to review case LABS 12-03-23 HLA-B*15:02 Negative 12-26-23 UA Color yellow, clear Sp.[place] 1.011, U pH 6.5, U glucose negative, U bili negative, Ketone neg, Blood neg, Protein neg, Urobili 0.2, Nitrite neg, Leuko neg. 01-06-24 W 5.6, Dirt Bike Racer 0.63 01-15-24 UC > 10,000 cfu/ml mixed superficial kala F Multiple microorganisms present, Probable contamination, UM RBC U 1, WBC U 32, JUAN J none seen, Hy.Cast <1, SQ epi 1 Follow up: 01-21-24 and in one week Jennifer Ho [facility] 12/03/2023 Encounter for follow-up examination after completed treatment for conditions other than malignant neoplasm (ICD-10 - Z09) 1. Recurrent urinary tract infections - 2. Bladder pain syndrome -refill Gabapentin for pain control 3. 3 UTI symptomatic pain 4.. Cystoscopy at Dr. Jefferson's office with severe inflammation She has had a bladder tumor resection with negative malignancy 5. CT of the abdomen 12/2022 Nephrolithiasis on the left without obstruction with some adjacent cortical scarring, unchanged 7. Prophylaxis for UTI w/methenamine 8. Will Re-order this lab test today 12-03-23, check HLA B 1502 for Tegretol use. Lab test as it was not run last time. Reinstutiue gabapentin for Bladder pain syndrome. LABS Follow up: 3-4 weeks Jennifer Ho [facility] 01/15/2024 Encounter for follow-up examination after completed treatment for conditions other than malignant neoplasm (ICD-10 - Z09) 1. 73 year old female with a prior history of HTN, chronic cystitis, Type 2 diabetes mellitus, and history of candidal UTI. 2. Bladder pain syndrome, inflammatory cystitis, and recurrent UTI's.- recent history of multiple negative cultures, and urine microscopic studies, despite being symptomatic 3. recurrent UTI- 01-15-24 -01-15-[address] of the abdomen 12/2022 Nephrolithiasis on the left without obstruction with some adjacentcortical scarring, unchanged 5. 01-15-24 Start Fosfomycin prophylaxis , one dose once a week for UTI prevention. 6. Bladder pain syndrome. - Continue Neurontin 300mg TID -01-15-24 Start Carbamazepine 100mg BID LABS 12-03-23 HLA-B*15:02 Negative 12-26-23 UA Color yellow, clear Sp.[place] 1.011, U pH 6.5, U glucose negative, U bili negative, Ketone neg, Blood neg, Protein neg, Urobili 0.2, Nitrite neg, Leuko neg. 01-06-24 W 5.6, Dirt Bike Racer 0.63 Follow up: 2 weeks UC,UM ordered 01-15-24 Jennifer Ho [facility] 12/06/2023 Obesity (BMI 30-39.9) (ICD-10 - E66.9) 11/19/2023 Encounter for follow-up examination after completed treatment for conditions other than malignant neoplasm (ICD-10 - Z09) 1. Recurrent urinary tract infections - 2. Bladder pain syndrome 2. symptomatic today 11-05-23 - UC with ESBL EC 2. Cystoscopy at Dr. Jefferson's office with severe inflammation She has had a bladder tumor resection with negative malignancy 3. CT of the abdomen 12/2022 Nephrolithiasis on the left without obstruction with some adjacent cortical scarring, unchanged 4. 11-12-23; severe symptoms and completely negative UW, and UC 11-19-23; severe symptoms, she is convinced she has a UTI, also s/p 2 weeks of fosfomycin, and IM In vanz will check UW, UC once again. however increase neurontin to 300mg AM, 300mg noon, and 600mg at HS. check HLA B 1502, and consider carbamezepine. -consider myrbetriq 5. 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 combination bladder pain, and occ. UTI f/u 1 - 2 weeks ITomi , am scribing for, and in the presence , of Dr. Singh. I, Dr. Singh, personally performed the services prescribed in this documentation, as scribed by Tomi Shin , in my presence and it is both accurate and complete 11/19/2023 Encounter for long-term (current) drug use (ICD-10 - Z79.899) 1. Recurrent urinary tract infections - 2. Bladder pain syndrome 2. symptomatic today 11-05-23 - UC with ESBL EC 2. Cystoscopy at Dr. Jefferson's office with severe inflammation She has had a bladder tumor resection with negative malignancy 3. CT of the abdomen 12/2022 Nephrolithiasis on the left without obstruction with some adjacent cortical scarring, unchanged 4. 11-12-23; severe symptoms and completely negative UW, and UC 11-19-23; severe symptoms, she is convinced she has a UTI, also s/p 2 weeks of fosfomycin, and IM In vanz will check UW, UC once again. however increase neurontin to 300mg AM, 300mg noon, and 600mg at HS. check HLA B 1502, and consider carbamezepine. -consider myrbetriq 5. 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 combination bladder pain, and occ. UTI f/u 1 - 2 weeks ITomi , am scribing for, and in the presence , of Dr. Singh. I, Dr. Singh, personally performed the services prescribed in this documentation, as scribed by Tomi Shin , in my presence and it is both accurate and complete 12/06/2023 Uses self-applied continuous glucose monitoring device (ICD-10 - Z97.8) 12/03/2023 Encounter for long-term (current) drug use (ICD-10 - Z79.899) 1. Recurrent urinary tract infections - 2. Bladder pain syndrome -refill Gabapentin for pain control 3. 3 UTI symptomatic pain 4.. Cystoscopy at Dr. Jefferson's office with severe inflammation She has had a bladder tumor resection with negative malignancy 5. CT of the abdomen 12/2022 Nephrolithiasis on the left without obstruction with some adjacent cortical scarring, unchanged 7. Prophylaxis for UTI w/methenamine 8. Will Re-order this lab test today 12-03-23, check HLA B 1502 for Tegretol use. Lab test as it was not run last time. Reinstutiue gabapentin for Bladder pain syndrome. LABS Follow up: 3-4 weeks Jennifer Ho [facility] 01/15/2024 Encounter for long-term (current) drug use (ICD-10 - Z79.899) 1. 73 year old female with a prior history of HTN, chronic cystitis, Type 2 diabetes mellitus, and history of candidal UTI. 2. Bladder pain syndrome, inflammatory cystitis, and recurrent UTI's.- recent history of multiple negative cultures, and urine microscopic studies, despite being symptomatic 3. recurrent UTI- 01-15-24 -01-15-[address] of the abdomen 12/2022 Nephrolithiasis on the left without obstruction with some adjacentcortical scarring, unchanged 5. 01-15-24 Start Fosfomycin prophylaxis , one dose once a week for UTI prevention. 6. Bladder pain syndrome. - Continue Neurontin 300mg TID -01-15-24 Start Carbamazepine 100mg BID LABS 12-03-23 HLA-B*15:02 Negative 12-26-23 UA Color yellow, clear Sp.[place] 1.011, U pH 6.5, U glucose negative, U bili negative, Ketone neg, Blood neg, Protein neg, Urobili 0.2, Nitrite neg, Leuko neg. 01-06-24 W 5.6, Dirt Bike Racer 0.63 Follow up: 2 weeks UC,UM ordered 01-15-24 RafaelSheyla starkshamar Barnhart [facility] 01/20/2024 Encounter for long-term (current) drug use (ICD-10 - Z79.899) 1. 73 year old female with a prior history of HTN, chronic cystitis, Type 2 diabetes mellitus, and history of candidal UTI. 2. Bladder pain syndrome, inflammatory cystitis, and recurrent UTI's.- recent history of multiple negative cultures, and urine microscopic studies, despite being symptomatic -01-20-24 large amount of pus cells - 01-20-24 lab culture shows no bacteria 3. 01-20-24 recurrent UTI, symptomatic -injection of Invanz 1000mg IM 01-20-24 4. 01-19-24 pyriua with neg cultures suggestive of cystitis, refer back to Urology 5. Continue Fosfomycin prophylaxis, started 01-18-24, one dose once a week for UTI prevention. -01-15-24 discontinued Methenamine 6. Bladder pain syndrome. - Continue Neurontin 300mg TID - continue Carbamazepine 100mg BID, no side effects raise dose next week 7. Refer back to Urologist to find out what is causing inflammation and scope - recommend [facility] for second opinion and to review case LABS 12-03-23 HLA-B*15:02 Negative 12-26-23 UA Color yellow, clear Sp.[place] 1.011, U pH 6.5, U glucose negative, U bili negative, Ketone neg, Blood neg, Protein neg, Urobili 0.2, Nitrite neg, Leuko neg. 01-06-24 W 5.6, Dirt Bike Racer 0.63 01-15-24 UC > 10,000 cfu/ml mixed superficial kala F Multiple microorganisms present, Probable contamination, UM RBC U 1, WBC U 32, JUAN J none seen, Hy.Cast <1, SQ epi 1 Follow up: 01-21-24 and in one week Jennifer Ho [facility] 01/29/2024 Encounter for long-term (current) drug use (ICD-10 - Z79.899) 1. 73 year old female with a prior history of HTN, chronic cystitis, Type 2 diabetes mellitus, and history of candidal UTI. 2. Bladder pain syndrome, inflammatory cystitis, and recurrent UTI's.- recent history of multiple negative cultures, and urine microscopic studies, despite being symptomatic -01-20-24 large amount of pus cells - 01-20-24 lab culture shows no bacteria - 01-20-24 recurrent UTI, symptomatic -injection of Invanz 1000mg IM 01-20-24 3. 01-29-24 Asymptomatic today but still not feeling well. 4. 01-19-24 pyriua with neg cultures suggestive of cystitis, refer back to Urology 5. 01-29-24 Continue Fosfomycin prophylaxis, started 01-18-24, one dose once a week for UTI prevention. -01-29-24 restart Methenamine BID 6. Bladder pain syndrome. - 01-29-24 Continue Gabapentin 300mg TID - 01-29-24 continue Carbamazepine, increase from 100mg BID to 200mg BID 7. Refer back to Urologist to find out what is causing inflammation and scope. - 01-29-24 Patients spoke with Vik Melgoza for second opinion. Vik Melgoza said no need after reviewing ca/med records as they felt getting excellent treatment by Inf[facility] Disease here at [facility]. LABS 12-03-23 HLA-B*15:02 Negative 12-26-23 UA Color yellow, clear Sp.[place] 1.011, U pH 6.5, U glucose negative, U bili negative, Ketone neg, Blood neg, Protein neg, Urobili 0.2, Nitrite neg, Leuko neg. 01-06-24 W 5.6, Dirt Bike Racer 0.63 01-15-24 UC > 10,000 cfu/ml mixed superficial kala F Multiple microorganisms present, Probable contamination, UM RBC U 1, WBC U 32, JUAN J none seen, Hy.Cast <1, SQ epi 1 FOLLOW UP: Saturday02-03-24 UC, UM, CBC,CRP,COMP 01-29-24 Jennifer Ho [employer] 02/25/2024 Encounter for long-term (current) drug use (ICD-10 - Z79.899) 1. 73 year old female with a prior history of HTN, chronic cystitis, Type 2 diabetes mellitus, and history of candidal UTI. 2. Cysto 02/2023 that revealed severe inflammation., without infection. -scheduled for another cystoscopy on 04-01-2024 3. atypical recurrent complicated UTIs, with negative cultures- 02-15-24, CT scan of the abdomen: negative for sources of recurrent complicated infectious sources- aks for urology consultation Saturday- 12-21-23 UC: ESBL E coli- 12-21-23; U WBC 276 (far above her baseline of 20-40)- 01-04-24; U WBC 888, culture negative this morning.- developed on methenamine and fosfomycin prophylaxis.- 01-29-24; UC negative while U WBC was >999- 02-15-24 UC negative with U WBC of 853- repeat the urine today- very atypical for severe systemic symptoms, severe pyuria, and yet repeated negative UC's. 4. Antibiotics: 02-25-24 continue with Meropenem.-Day # 12 (Start date 02-13-24) duration of therapy 4-6 weeks -02-25-24 Discontinue on Carbamazapine -02-25-24 stop Gabapentin 5. Urine studies from Dr. Álvarez office negative 1 day ago, no access to those results. UC,UM ordered today and pt to come back 02-26-24. 6. Brain Scan showed moderate atrophy -02-25-24 Mental status changes -02-25-24 dizziness, confusion, falls LABS 01-29-24 W 6.2, Dirt Bike Racer .65, CRP 1.26, UC > 10,000 cfu/ml mixed superficial kala, UM RBC U 2, WBC U 174, JUAN J non seen, SQ epi 4 02-16-24 W 5.6, Dirt Bike Racer 0.60, CRP 0.64 02-17-24 UC no growth @ 48 hrs, UM RBC 1, WBC 59, FOLLOW UP: 02-26-24 Patient at [facility] [place] [place] in [place], [place] Jennifer Ho 02/03/2024 Encounter for long-term (current) drug use (ICD-10 - Z79.899) 1. 73 year old female with a prior history of HTN, chronic cystitis, Type 2 diabetes mellitus, and history of candidal UTI. 2. Bladder pain syndrome, inflammatory cystitis, and recurrent UTI's.- recent history of multiple negative cultures, and urine microscopic studies, despite being symptomatic. -CRP elevated 01-29-24 - 01-29-24; U WBC 175, but UC negatibver, now she has AMS; refer to the ER, repeat studies, may have some un derlying early dementia 3. 02-03-24 Continue Fosfomycin prophylaxis, started 01-18-24, one dose once a week for UTI prevention; prophylaxis as an OP will probably need to be INvanz weekly, with secondary antibiotics (cipro, doxy, Levaquin, etc.) to cover broad spectrum of potential UTI causes -01-29-24 Discontinued Methenamine due to rash 4. Bladder pain syndrome. - 02-03-24 Continue Gabapentin 300mg TID - 02-03-24 continue Carbamazepine, increase from 100mg BID to 200mg BID 5. Go to ER for repeat urine, WBC and may need to be admitted. -Per ; Hallucinations at night, cognitive issues, falling at home ( worried about caring for her) LABS 12-03-23 HLA-B*15:02 Negative 12-26-23 UA Color yellow, clear Sp.[place] 1.011, U pH 6.5, U glucose negative, U bili negative, Ketone neg, Blood neg, Protein neg, Urobili 0.2, Nitrite neg, Leuko neg. 01-06-24 W 5.6, Dirt Bike Racer 0.63 01-15-24 UC > 10,000 cfu/ml mixed superficial kala F Multiple microorganisms present, Probable contamination, UM RBC U 1, WBC U 32, JUAN J none seen, Hy.Cast <1, SQ epi 1 01-29-24 W 6.2, Dirt Bike Racer .65, CRP 1.26, UC > 10,000 cfu/ml mixed superficial kala, UM RBC U 2, WBC U 174, JUAN J non seen, SQ epi 4 FOLLOW UP: 1 week Jennifer Ho 02/26/2024 Encounter for long-term (current) drug use (ICD-10 - Z79.899) 1. 73 year old female with a prior history of HTN, chronic cystitis, Type 2 diabetes mellitus, and history of candidal UTI. 2. Cysto 02/2023 that revealed severe inflammation., without infection. -scheduled for another cystoscopy on 04-01-2024 3. atypical recurrent complicated UTIs, with negative cultures, - developed on methenamine and fosfomycin prophylaxis. - 12-21-23 UC: ESBL E coli- 12-21-23; U WBC 276 (far above her baseline of 20-40) - 01-04-24; U WBC 888, culture negative this morning - 01-29-24; UC negative while U WBC was >999 - 02-15-24 UC negative with U WBC of 853 - 02-15-24, CT scan of the abdomen: negative for sources of recurrent complicated infectious sources - very atypical for severe systemic symptoms, severe pyuria, and yet repeated negative UC's. 4. Antibiotics: 02-26-24 continue with Meropenem.-Day # 13 (Start date 02-13-24) duration of therapy 4-6 weeks -02-25-24 Discontinue Carbamazapine -02-25-24 stop Gabapentin 5. Urine studies from Dr. Álvarez office negative 1 day ago, no access to those results. -02-26-24 UC/UM both negative -02-26-24 WBC 16 elevated 6. Possible early dementia, Brain scan showed some atrophy -02-25-24 Mental status changes, -02-25-24 dizziness, confusion, falls LABS 01-29-24 W 6.2, Dirt Bike Racer .65, CRP 1.26, UC > 10,000 cfu/ml mixed superficial kala, UM RBC U 2, WBC U 174, JUAN J non seen, SQ epi 4 02-16-24 W 5.6, Dirt Bike Racer 0.60, CRP 0.64 02-17-24 UC no growth @ 48 hrs, UM RBC 1, WBC 59 02-25-24 UC no growth overnight, UM RBC 1, WBC 16, JUAN J none seen, Hy. Cast <1, SQ epi 5 FOLLOW UP: 1 week Patient at [facility] [place] [place] in [place], [place] Jennifer Ho 02/26/2024 Recurrent UTI (urinary tract infection) (ICD-10 - N39.0) 1. 73 year old female with a prior history of HTN, chronic cystitis, Type 2 diabetes mellitus, and history of candidal UTI. 2. Cysto 02/2023 that revealed severe inflammation., without infection. -scheduled for another cystoscopy on 04-01-2024 3. atypical recurrent complicated UTIs, with negative cultures, - developed on methenamine and fosfomycin prophylaxis. - 12-21-23 UC: ESBL E coli- 12-21-23; U WBC 276 (far above her baseline of 20-40) - 01-04-24; U WBC 888, culture negative this morning - 01-29-24; UC negative while U WBC was >999 - 02-15-24 UC negative with U WBC of 853 - 02-15-24, CT scan of the abdomen: negative for sources of recurrent complicated infectious sources - very atypical for severe systemic symptoms, severe pyuria, and yet repeated negative UC's. 4. Antibiotics: 02-26-24 continue with Meropenem.-Day # 13 (Start date 02-13-24) duration of therapy 4-6 weeks -02-25-24 Discontinue Carbamazapine -02-25-24 stop Gabapentin 5. Urine studies from Dr. Álvarez office negative 1 day ago, no access to those results. -02-26-24 UC/UM both negative -02-26-24 WBC 16 elevated 6. Possible early dementia, Brain scan showed some atrophy -02-25-24 Mental status changes, -02-25-24 dizziness, confusion, falls LABS 01-29-24 W 6.2, Dirt Bike Racer .65, CRP 1.26, UC > 10,000 cfu/ml mixed superficial kala, UM RBC U 2, WBC U 174, JUAN J non seen, SQ epi 4 02-16-24 W 5.6, Dirt Bike Racer 0.60, CRP 0.64 02-17-24 UC no growth @ 48 hrs, UM RBC 1, WBC 59 02-25-24 UC no growth overnight, UM RBC 1, WBC 16, JUAN J none seen, Hy. Cast <1, SQ epi 5 FOLLOW UP: 1 week Patient at [facility] [place]Note [place] in [place], [place] Jennifer Ho 02/25/2024 Recurrent UTI (urinary tract infection) (ICD-10 - N39.0) 1. 73 year old female with a prior history of HTN, chronic cystitis, Type 2 diabetes mellitus, and history of candidal UTI. 2. Cysto 02/2023 that revealed severe inflammation., without infection. -scheduled for another cystoscopy on 04-01-2024 3. atypical recurrent complicated UTIs, with negative cultures- 02-15-24, CT scan of the abdomen: negative for sources of recurrent complicated infectious sources- aks for urology consultation Saturday- 12-21-23 UC: ESBL E coli- 12-21-23; U WBC 276 (far above her baseline of 20-40)- 01-04-24; U WBC 888, culture negative this morning.- developed on methenamine and fosfomycin prophylaxis.- 01-29-24; UC negative while U WBC was >999- 02-15-24 UC negative with U WBC of 853- repeat the urine today- very atypical for severe systemic symptoms, severe pyuria, and yet repeated negative UC's. 4. Antibiotics: 02-25-24 continue with Meropenem.-Day # 12 (Start date 02-13-24) duration of therapy 4-6 weeks -02-25-24 Discontinue on Carbamazapine -02-25-24 stop Gabapentin 5. Urine studies from Dr. Álvarez office negative 1 day ago, no access to those results. UC,UM ordered today and pt to come back 02-26-24. 6. Brain Scan showed moderate atrophy -02-25-24 Mental status changes -02-25-24 dizziness, confusion, falls LABS 01-29-24 W 6.2, Dirt Bike Racer .65, CRP 1.26, UC > 10,000 cfu/ml mixed superficial kala, UM RBC U 2, WBC U 174, JUAN J non seen, SQ epi 4 02-16-24 W 5.6, Dirt Bike Racer 0.60, CRP 0.64 02-17-24 UC no growth @ 48 hrs, UM RBC 1, WBC 59, FOLLOW UP: 02-26-24 Patient at [facility] [place] [place] in [place], [place] Jennifer Ho 01/29/2024 Recurrent UTI (urinary tract infection) (ICD-10 - N39.0) 1. 73 year old female with a prior history of HTN, chronic cystitis, Type 2 diabetes mellitus, and history of candidal UTI. 2. Bladder pain syndrome, inflammatory cystitis, and recurrent UTI's.- recent history of multiple negative cultures, and urine microscopic studies, despite being symptomatic -01-20-24 large amount of pus cells - 01-20-24 lab culture shows no bacteria - 01-20-24 recurrent UTI, symptomatic -injection of Invanz 1000mg IM 01-20-24 3. 01-29-24 Asymptomatic today but still not feeling well. 4. 01-19-24 pyriua with neg cultures suggestive of cystitis, refer back to Urology 5. 01-29-24 Continue Fosfomycin prophylaxis, started 01-18-24, one dose once a week for UTI prevention. -01-29-24 restart Methenamine BID 6. Bladder pain syndrome. - 01-29-24 Continue Gabapentin 300mg TID - 01-29-24 continue Carbamazepine, increase from 100mg BID to 200mg BID 7. Refer back to Urologist to find out what is causing inflammation and scope. - 01-29-24 Patients spoke with Vik Melgoza for second opinion. Vik Melgoza said no need after reviewing ca/med records as they felt getting excellent treatment by Inf[facility] Disease here at [facility]. LABS 12-03-23 HLA-B*15:02 Negative 12-26-23 UA Color yellow, clear Sp.[place] 1.011, U pH 6.5, U glucose negative, U bili negative, Ketone neg, Blood neg, Protein neg, Urobili 0.2, Nitrite neg, Leuko neg. 01-06-24 W 5.6, Dirt Bike Racer 0.63 01-15-24 UC > 10,000 cfu/ml mixed superficial kala F Multiple microorganisms present, Probable contamination, UM RBC U 1, WBC U 32, JUAN J none seen, Hy.Cast <1, SQ epi 1 FOLLOW UP: Saturday02-03-24 UC, UM, CBC,CRP,COMP 01-29-24 Jennifer Ho [employer] 02/03/2024 Recurrent UTI (urinary tract infection) (ICD-10 - N39.0) 1. 73 year old female with a prior history of HTN, chronic cystitis, Type 2 diabetes mellitus, and history of candidal UTI. 2. Bladder pain syndrome, inflammatory cystitis, and recurrent UTI's.- recent history of multiple negative cultures, and urine microscopic studies, despite being symptomatic. -CRP elevated 01-29-24 - 01-29-24; U WBC 175, but UC negatibver, now she has AMS; refer to the ER, repeat studies, may have some un derlying early dementia 3. 02-03-24 Continue Fosfomycin prophylaxis, started 01-18-24, one dose once a week for UTI prevention; prophylaxis as an OP will probably need to be INvanz weekly, with secondary antibiotics (cipro, doxy, Levaquin, etc.) to cover broad spectrum of potential UTI causes -01-29-24 Discontinued Methenamine due to rash 4. Bladder pain syndrome. - 02-03-24 Continue Gabapentin 300mg TID - 02-03-24 continue Carbamazepine, increase from 100mg BID to 200mg BID 5. Go to ER for repeat urine, WBC and may need to be admitted. -Per ; Hallucinations at night, cognitive issues, falling at home ( worried about caring for her) LABS 12-03-23 HLA-B*15:02 Negative 12-26-23 UA Color yellow, clear Sp.[place] 1.011, U pH 6.5, U glucose negative, U bili negative, Ketone neg, Blood neg, Protein neg, Urobili 0.2, Nitrite neg, Leuko neg. 01-06-24 W 5.6, Dirt Bike Racer 0.63 01-15-24 UC > 10,000 cfu/ml mixed superficial kala F Multiple microorganisms present, Probable contamination, UM RBC U 1, WBC U 32, JUAN J none seen, Hy.Cast <1, SQ epi 1 01-29-24 W 6.2, Dirt Bike Racer .65, CRP 1.26, UC > 10,000 cfu/ml mixed superficial kala, UM RBC U 2, WBC U 174, JUAN J non seen, SQ epi 4 FOLLOW UP: 1 week Jennifer Ho 01/20/2024 Recurrent UTI (urinary tract infection) (ICD-10 - N39.0) 1. 73 year old female with a prior history of HTN, chronic cystitis, Type 2 diabetes mellitus, and history of candidal UTI. 2. Bladder pain syndrome, inflammatory cystitis, and recurrent UTI's.- recent history of multiple negative cultures, and urine microscopic studies, despite being symptomatic -01-20-24 large amount of pus cells - 01-20-24 lab culture shows no bacteria 3. 01-20-24 recurrent UTI, symptomatic -injection of Invanz 1000mg IM 01-20-24 4. 01-19-24 pyriua with neg cultures suggestive of cystitis, refer back to Urology 5. Continue Fosfomycin prophylaxis, started 01-18-24, one dose once a week for UTI prevention. -01-15-24 discontinued Methenamine 6. Bladder pain syndrome. - Continue Neurontin 300mg TID - continue Carbamazepine 100mg BID, no side effects raise dose next week 7. Refer back to Urologist to find out what is causing inflammation and scope - recommend [facility] for second opinion and to review case LABS 12-03-23 HLA-B*15:02 Negative 12-26-23 UA Color yellow, clear Sp.[place] 1.011, U pH 6.5, U glucose negative, U bili negative, Ketone neg, Blood neg, Protein neg, Urobili 0.2, Nitrite neg, Leuko neg. 01-06-24 W 5.6, Dirt Bike Racer 0.63 01-15-24 UC > 10,000 cfu/ml mixed superficial kala F Multiple microorganisms present, Probable contamination, UM RBC U 1, WBC U 32, JUAN J none seen, Hy.Cast <1, SQ epi 1 Follow up: 01-21-24 and in one week Jennifer Ho [facility] 01/15/2024 Recurrent UTI (urinary tract infection) (ICD-10 - N39.0) 1. 73 year old female with a prior history of HTN, chronic cystitis, Type 2 diabetes mellitus, and history of candidal UTI. 2. Bladder pain syndrome, inflammatory cystitis, and recurrent UTI's.- recent history of multiple negative cultures, and urine microscopic studies, despite being symptomatic 3. recurrent UTI- 01-15-24 -01-15-[address] of the abdomen 12/2022 Nephrolithiasis on the left without obstruction with some adjacentcortical scarring, unchanged 5. 01-15-24 Start Fosfomycin prophylaxis , one dose once a week for UTI prevention. 6. Bladder pain syndrome. - Continue Neurontin 300mg TID -01-15-24 Start Carbamazepine 100mg BID LABS 12-03-23 HLA-B*15:02 Negative 12-26-23 UA Color yellow, clear Sp.[place] 1.011, U pH 6.5, U glucose negative, U bili negative, Ketone neg, Blood neg, Protein neg, Urobili 0.2, Nitrite neg, Leuko neg. 01-06-24 W 5.6, Dirt Bike Racer 0.63 Follow up: 2 weeks UC,UM ordered 01-15-24 ScribeJennifer [facility] 12/03/2023 Recurrent UTI (urinary tract infection) (ICD-10 - N39.0) 1. Recurrent urinary tract infections - 2. Bladder pain syndrome -refill Gabapentin for pain control 3. 3 UTI symptomatic pain 4.. Cystoscopy at Dr. Jefferson's office with severe inflammation She has had a bladder tumor resection with negative malignancy 5. CT of the abdomen 12/2022 Nephrolithiasis on the left without obstruction with some adjacent cortical scarring, unchanged 7. Prophylaxis for UTI w/methenamine 8. Will Re-order this lab test today 12-03-23, check HLA B 1502 for Tegretol use. Lab test as it was not run last time. Reinstutiue gabapentin for Bladder pain syndrome. LABS Follow up: 3-4 weeks ScribeJennifermons [facility] 11/19/2023 Recurrent UTI (urinary tract infection) (ICD-10 - N39.0) 1. Recurrent urinary tract infections - 2. Bladder pain syndrome 2. symptomatic today 11-05-23 - UC with ESBL EC 2. Cystoscopy at Dr. Jefferson's office with severe inflammation She has had a bladder tumor resection with negative malignancy 3. CT of the abdomen 12/2022 Nephrolithiasis on the left without obstruction with some adjacent cortical scarring, unchanged 4. 11-12-23; severe symptoms and completely negative UW, and UC 11-19-23; severe symptoms, she is convinced she has a UTI, also s/p 2 weeks of fosfomycin, and IM In vanz will check UW, UC once again. however increase neurontin to 300mg AM, 300mg noon, and 600mg at HS. check HLA B 1502, and consider carbamezepine. -consider myrbetriq 5. 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 combination bladder pain, and occ. UTI f/u 1 - 2 weeks Tomi Jarvis am scribing for, and in the presence , of Dr. Singh. I, Dr. Singh, personally performed the services prescribed in this documentation, as scribed by Tomi Shin , in my presence and it is both accurate and complete 12/03/2023 Bladder pain syndrome (ICD-10 - N30.10) 1. Recurrent urinary tract infections - 2. Bladder pain syndrome -refill Gabapentin for pain control 3. 3 UTI symptomatic pain 4.. Cystoscopy at Dr. Jefferson's office with severe inflammation She has had a bladder tumor resection with negative malignancy 5. CT of the abdomen 12/2022 Nephrolithiasis on the left without obstruction with some adjacent cortical scarring, unchanged 7. Prophylaxis for UTI w/methenamine 8. Will Re-order this lab test today 12-03-23, check HLA B 1502 for Tegretol use. Lab test as it was not run last time. Reinstutiue gabapentin for Bladder pain syndrome. LABS Follow up: 3-4 weeks Jennifer Ho CMA 01/15/2024 Bladder pain syndrome (ICD-10 - N30.10) 1. 73 year old female with a prior history of HTN, chronic cystitis, Type 2 diabetes mellitus, and history of candidal UTI. 2. Bladder pain syndrome, inflammatory cystitis, and recurrent UTI's.- recent history of multiple negative cultures, and urine microscopic studies, despite being symptomatic 3. recurrent UTI- 01-15-24 -01-15-[address] of the abdomen 12/2022 Nephrolithiasis on the left without obstruction with some adjacentcortical scarring, unchanged 5. 01-15-24 Start Fosfomycin prophylaxis , one dose once a week for UTI prevention. 6. Bladder pain syndrome. - Continue Neurontin 300mg TID -01-15-24 Start Carbamazepine 100mg BID LABS 12-03-23 HLA-B*15:02 Negative 12-26-23 UA Color yellow, clear Sp.[place] 1.011, U pH 6.5, U glucose negative, U bili negative, Ketone neg, Blood neg, Protein neg, Urobili 0.2, Nitrite neg, Leuko neg. 01-06-24 W 5.6, Dirt Bike Racer 0.63 Follow up: 2 weeks UC,UM ordered 01-15-24 Jennifer Ho [employer] 01/20/2024 Bladder pain syndrome (ICD-10 - N30.10) 1. 73 year old female with a prior history of HTN, chronic cystitis, Type 2 diabetes mellitus, and history of candidal UTI. 2. Bladder pain syndrome, inflammatory cystitis, and recurrent UTI's.- recent history of multiple negative cultures, and urine microscopic studies, despite being symptomatic -01-20-24 large amount of pus cells - 01-20-24 lab culture shows no bacteria 3. 01-20-24 recurrent UTI, symptomatic -injection of Invanz 1000mg IM 01-20-24 4. 01-19-24 pyriua with neg cultures suggestive of cystitis, refer back to Urology 5. Continue Fosfomycin prophylaxis, started 01-18-24, one dose once a week for UTI prevention. -01-15-24 discontinued Methenamine 6. Bladder pain syndrome. - Continue Neurontin 300mg TID - continue Carbamazepine 100mg BID, no side effects raise dose next week 7. Refer back to Urologist to find out what is causing inflammation and scope - recommend [facility] for second opinion and to review case LABS 12-03-23 HLA-B*15:02 Negative 12-26-23 UA Color yellow, clear Sp.[place] 1.011, U pH 6.5, U glucose negative, U bili negative, Ketone neg, Blood neg, Protein neg, Urobili 0.2, Nitrite neg, Leuko neg. 01-06-24 W 5.6, Dirt Bike Racer 0.63 01-15-24 UC > 10,000 cfu/ml mixed superficial kala F Multiple microorganisms present, Probable contamination, UM RBC U 1, WBC U 32, JUAN J none seen, Hy.Cast <1, SQ epi 1 Follow up: 01-21-24 and in one week DakotaJennifer covarrubias Obey [facility] 01/29/2024 Bladder pain syndrome (ICD-10 - N30.10) 1. 73 year old female with a prior history of HTN, chronic cystitis, Type 2 diabetes mellitus, and history of candidal UTI. 2. Bladder pain syndrome, inflammatory cystitis, and recurrent UTI's.- recent history of multiple negative cultures, and urine microscopic studies, despite being symptomatic -01-20-24 large amount of pus cells - 01-20-24 lab culture shows no bacteria - 01-20-24 recurrent UTI, symptomatic -injection of Invanz 1000mg IM 01-20-24 3. 01-29-24 Asymptomatic today but still not feeling well. 4. 01-19-24 pyriua with neg cultures suggestive of cystitis, refer back to Urology 5. 01-29-24 Continue Fosfomycin prophylaxis, started 01-18-24, one dose once a week for UTI prevention. -01-29-24 restart Methenamine BID 6. Bladder pain syndrome. - 01-29-24 Continue Gabapentin 300mg TID - 01-29-24 continue Carbamazepine, increase from 100mg BID to 200mg BID 7. Refer back to Urologist to find out what is causing inflammation and scope. - 01-29-24 Patients spoke with Vik Melgoza for second opinion. Vik Melgoza said no need after reviewing ca/med records as they felt getting excellent treatment by Inf[facility] Disease here at [facility]. LABS 12-03-23 HLA-B*15:02 Negative 12-26-23 UA Color yellow, clear Sp.[place] 1.011, U pH 6.5, U glucose negative, U bili negative, Ketone neg, Blood neg, Protein neg, Urobili 0.2, Nitrite neg, Leuko neg. 01-06-24 W 5.6, Dirt Bike Racer 0.63 01-15-24 UC > 10,000 cfu/ml mixed superficial kala F Multiple microorganisms present, Probable contamination, UM RBC U 1, WBC U 32, JUAN J none seen, Hy.Cast <1, SQ epi 1 FOLLOW UP: Saturday02-03-24 UC, UM, CBC,CRP,COMP 01-29-24 Jennifer Ho [facility] 02/03/2024 Bladder pain syndrome (ICD-10 - N30.10) 1. 73 year old female with a prior history of HTN, chronic cystitis, Type 2 diabetes mellitus, and history of candidal UTI. 2. Bladder pain syndrome, inflammatory cystitis, and recurrent UTI's.- recent history of multiple negative cultures, and urine microscopic studies, despite being symptomatic. -CRP elevated 01-29-24 - 01-29-24; U WBC 175, but UC negatibver, now she has AMS; refer to the ER, repeat studies, may have some un derlying early dementia 3. 02-03-24 Continue Fosfomycin prophylaxis, started 01-18-24, one dose once a week for UTI prevention; prophylaxis as an OP will probably need to be INvanz weekly, with secondary antibiotics (cipro, doxy, Levaquin, etc.) to cover broad spectrum of potential UTI causes -01-29-24 Discontinued Methenamine due to rash 4. Bladder pain syndrome. - 02-03-24 Continue Gabapentin 300mg TID - 02-03-24 continue Carbamazepine, increase from 100mg BID to 200mg BID 5. Go to ER for repeat urine, WBC and may need to be admitted. -Per ; Hallucinations at night, cognitive issues, falling at home ( worried about caring for her) LABS 12-03-23 HLA-B*15:02 Negative 12-26-23 UA Color yellow, clear Sp.[place] 1.011, U pH 6.5, U glucose negative, U bili negative, Ketone neg, Blood neg, Protein neg, Urobili 0.2, Nitrite neg, Leuko neg. 01-06-24 W 5.6, Dirt Bike Racer 0.63 01-15-24 UC > 10,000 cfu/ml mixed superficial kala F Multiple microorganisms present, Probable contamination, UM RBC U 1, WBC U 32, JUAN J none seen, Hy.Cast <1, SQ epi 1 01-29-24 W 6.2, Dirt Bike Racer .65, CRP 1.26, UC > 10,000 cfu/ml mixed superficial kala, UM RBC U 2, WBC U 174, JUAN J non seen, SQ epi 4 FOLLOW UP: 1 week Jennifer Ho 02/25/2024 Bladder pain syndrome (ICD-10 - N30.10) 1. 73 year old female with a prior history of HTN, chronic cystitis, Type 2 diabetes mellitus, and history of candidal UTI. 2. Cysto 02/2023 that revealed severe inflammation., without infection. -scheduled for another cystoscopy on 04-01-2024 3. atypical recurrent complicated UTIs, with negative cultures- 02-15-24, CT scan of the abdomen: negative for sources of recurrent complicated infectious sources- aks for urology consultation Saturday- 12-21-23 UC: ESBL E coli- 12-21-23; U WBC 276 (far above her baseline of 20-40)- 01-04-24; U WBC 888, culture negative this morning.- developed on methenamine and fosfomycin prophylaxis.- 01-29-24; UC negative while U WBC was >999- 02-15-24 UC negative with U WBC of 853- repeat the urine today- very atypical for severe systemic symptoms, severe pyuria, and yet repeated negative UC's. 4. Antibiotics: 02-25-24 continue with Meropenem.-Day # 12 (Start date 02-13-24) duration of therapy 4-6 weeks -02-25-24 Discontinue on Carbamazapine -02-25-24 stop Gabapentin 5. Urine studies from Dr. Álvarez office negative 1 day ago, no access to those results. UC,UM ordered today and pt to come back 02-26-24. 6. Brain Scan showed moderate atrophy -02-25-24 Mental status changes -02-25-24 dizziness, confusion, falls LABS 01-29-24 W 6.2, Dirt Bike Racer .65, CRP 1.26, UC > 10,000 cfu/ml mixed superficial kala, UM RBC U 2, WBC U 174, JUAN J non seen, SQ epi 4 02-16-24 W 5.6, Dirt Bike Racer 0.60, CRP 0.64 02-17-24 UC no growth @ 48 hrs, UM RBC 1, WBC 59, FOLLOW UP: 02-26-24 Patient at [facility] [place] in [place], [place] DakotaJennifer covarrubias Barnhart 02/26/2024 Bladder pain syndrome (ICD-10 - N30.10) 1. 73 year old female with a prior history of HTN, chronic cystitis, Type 2 diabetes mellitus, and history of candidal UTI. 2. Cysto 02/2023 that revealed severe inflammation., without infection. -scheduled for another cystoscopy on 04-01-2024 3. atypical recurrent complicated UTIs, with negative cultures, - developed on methenamine and fosfomycin prophylaxis. - 12-21-23 UC: ESBL E coli- 12-21-23; U WBC 276 (far above her baseline of 20-40) - 01-04-24; U WBC 888, culture negative this morning - 01-29-24; UC negative while U WBC was >999 - 02-15-24 UC negative with U WBC of 853 - 02-15-24, CT scan of the abdomen: negative for sources of recurrent complicated infectious sources - very atypical for severe systemic symptoms, severe pyuria, and yet repeated negative UC's. 4. Antibiotics: 02-26-24 continue with Meropenem.-Day # 13 (Start date 02-13-24) duration of therapy 4-6 weeks -02-25-24 Discontinue Carbamazapine -02-25-24 stop Gabapentin 5. Urine studies from Dr. Álvarez office negative 1 day ago, no access to those results. -02-26-24 UC/UM both negative -02-26-24 WBC 16 elevated 6. Possible early dementia, Brain scan showed some atrophy -02-25-24 Mental status changes, -02-25-24 dizziness, confusion, falls LABS 01-29-24 W 6.2, Dirt Bike Racer .65, CRP 1.26, UC > 10,000 cfu/ml mixed superficial kala, UM RBC U 2, WBC U 174, JUAN J non seen, SQ epi 4 02-16-24 W 5.6, Dirt Bike Racer 0.60, CRP 0.64 02-17-24 UC no growth @ 48 hrs, UM RBC 1, WBC 59 02-25-24 UC no growth overnight, UM RBC 1, WBC 16, JUAN J none seen, Hy. Cast <1, SQ epi 5 FOLLOW UP: 1 week Patient at [facility] [place] [place] in [place], [place] Jennifer Ho 02/26/2024 Type 2 diabetes mellitus with hyperglycemia (ICD-10 - E11.65) 1. 73 year old female with a prior history of HTN, chronic cystitis, Type 2 diabetes mellitus, and history of candidal UTI. 2. Cysto 02/2023 that revealed severe inflammation., without infection. -scheduled for another cystoscopy on 04-01-2024 3. atypical recurrent complicated UTIs, with negative cultures, - developed on methenamine and fosfomycin prophylaxis. - 12-21-23 UC: ESBL E coli- 12-21-23; U WBC 276 (far above her baseline of 20-40) - 01-04-24; U WBC 888, culture negative this morning - 01-29-24; UC negative while U WBC was >999 - 02-15-24 UC negative with U WBC of 853 - 02-15-24, CT scan of the abdomen: negative for sources of recurrent complicated infectious sources - very atypical for severe systemic symptoms, severe pyuria, and yet repeated negative UC's. 4. Antibiotics: 02-26-24 continue with Meropenem.-Day # 13 (Start date 02-13-24) duration of therapy 4-6 weeks -02-25-24 Discontinue Carbamazapine -02-25-24 stop Gabapentin 5. Urine studies from Dr. Álvarez office negative 1 day ago, no access to those results. -02-26-24 UC/UM both negative -02-26-24 WBC 16 elevated 6. Possible early dementia, Brain scan showed some atrophy -02-25-24 Mental status changes, -02-25-24 dizziness, confusion, falls LABS 01-29-24 W 6.2, Dirt Bike Racer .65, CRP 1.26, UC > 10,000 cfu/ml mixed superficial kala, UM RBC U 2, WBC U 174, JUAN J non seen, SQ epi 4 02-16-24 W 5.6, Dirt Bike Racer 0.60, CRP 0.64 02-17-24 UC no growth @ 48 hrs, UM RBC 1, WBC 59 02-25-24 UC no growth overnight, UM RBC 1, WBC 16, JUAN J none seen, Hy. Cast <1, SQ epi 5 FOLLOW UP: 1 week Patient at [facility] [place] [place] in [place], [place] Jennifer Ho 02/25/2024 Type 2 diabetes mellitus with hyperglycemia (ICD-10 - E11.65) 1. 73 year old female with a prior history of HTN, chronic cystitis, Type 2 diabetes mellitus, and history of candidal UTI. 2. Cysto 02/2023 that revealed severe inflammation., without infection. -scheduled for another cystoscopy on 04-01-2024 3. atypical recurrent complicated UTIs, with negative cultures- 02-15-24, CT scan of the abdomen: negative for sources of recurrent complicated infectious sources- aks for urology consultation Saturday- 12-21-23 UC: ESBL E coli- 12-21-23; U WBC 276 (far above her baseline of 20-40)- 01-04-24; U WBC 888, culture negative this morning.- developed on methenamine and fosfomycin prophylaxis.- 01-29-24; UC negative while U WBC was >999- 02-15-24 UC negative with U WBC of 853- repeat the urine today- very atypical for severe systemic symptoms, severe pyuria, and yet repeated negative UC's. 4. Antibiotics: 02-25-24 continue with Meropenem.-Day # 12 (Start date 02-13-24) duration of therapy 4-6 weeks -02-25-24 Discontinue on Carbamazapine -02-25-24 stop Gabapentin 5. Urine studies from Dr. Álvarez office negative 1 day ago, no access to those results. UC,UM ordered today and pt to come back 02-26-24. 6. Brain Scan showed moderate atrophy -02-25-24 Mental status changes -02-25-24 dizziness, confusion, falls LABS 01-29-24 W 6.2, Dirt Bike Racer .65, CRP 1.26, UC > 10,000 cfu/ml mixed superficial klaa, UM RBC U 2, WBC U 174, JUAN J non seen, SQ epi 4 02-16-24 W 5.6, Dirt Bike Racer 0.60, CRP 0.64 02-17-24 UC no growth @ 48 hrs, UM RBC 1, WBC 59, FOLLOW UP: 02-26-24 Patient at [facility] [place] [place] in [place], [place] Jennifer Ho 02/03/2024 Type 2 diabetes mellitus with hyperglycemia (ICD-10 - E11.65) 1. 73 year old female with a prior history of HTN, chronic cystitis, Type 2 diabetes mellitus, and history of candidal UTI. 2. Bladder pain syndrome, inflammatory cystitis, and recurrent UTI's.- recent history of multiple negative cultures, and urine microscopic studies, despite being symptomatic. -CRP elevated 01-29-24 - 01-29-24; U WBC 175, but UC negatibver, now she has AMS; refer to the ER, repeat studies, may have some un derlying early dementia 3. 02-03-24 Continue Fosfomycin prophylaxis, started 01-18-24, one dose once a week for UTI prevention; prophylaxis as an OP will probably need to be INvanz weekly, with secondary antibiotics (cipro, doxy, Levaquin, etc.) to cover broad spectrum of potential UTI causes -01-29-24 Discontinued Methenamine due to rash 4. Bladder pain syndrome. - 02-03-24 Continue Gabapentin 300mg TID - 02-03-24 continue Carbamazepine, increase from 100mg BID to 200mg BID 5. Go to ER for repeat urine, WBC and may need to be admitted. -Per ; Hallucinations at night, cognitive issues, falling at home ( worried about caring for her) LABS 12-03-23 HLA-B*15:02 Negative 12-26-23 UA Color yellow, clear Sp.[place] 1.011, U pH 6.5, U glucose negative, U bili negative, Ketone neg, Blood neg, Protein neg, Urobili 0.2, Nitrite neg, Leuko neg. 01-06-24 W 5.6, Dirt Bike Racer 0.63 01-15-24 UC > 10,000 cfu/ml mixed superficial kala F Multiple microorganisms present, Probable contamination, UM RBC U 1, WBC U 32, JUAN J none seen, Hy.Cast <1, SQ epi 1 01-29-24 W 6.2, Dirt Bike Racer .65, CRP 1.26, UC > 10,000 cfu/ml mixed superficial kala, UM RBC U 2, WBC U 174, JUAN J non seen, SQ epi 4 FOLLOW UP: 1 week Jennifer Ho 01/29/2024 Type 2 diabetes mellitus with hyperglycemia (ICD-10 - E11.65) 1. 73 year old female with a prior history of HTN, chronic cystitis, Type 2 diabetes mellitus, and history of candidal UTI. 2. Bladder pain syndrome, inflammatory cystitis, and recurrent UTI's.- recent history of multiple negative cultures, and urine microscopic studies, despite being symptomatic -01-20-24 large amount of pus cells - 01-20-24 lab culture shows no bacteria - 01-20-24 recurrent UTI, symptomatic -injection of Invanz 1000mg IM 01-20-24 3. 01-29-24 Asymptomatic today but still not feeling well. 4. 01-19-24 pyriua with neg cultures suggestive of cystitis, refer back to Urology 5. 01-29-24 Continue Fosfomycin prophylaxis, started 01-18-24, one dose once a week for UTI prevention. -01-29-24 restart Methenamine BID 6. Bladder pain syndrome. - 01-29-24 Continue Gabapentin 300mg TID - 01-29-24 continue Carbamazepine, increase from 100mg BID to 200mg BID 7. Refer back to Urologist to find out what is causing inflammation and scope. - 01-29-24 Patients spoke with [facility] for second opinion. [facility] said no need after reviewing ca/med records as they felt getting excellent treatment by Inf[facility] Disease here at [facility]. LABS 12-03-23 HLA-B*15:02 Negative 12-26-23 UA Color yellow, clear Sp.[place] 1.011, U pH 6.5, U glucose negative, U bili negative, Ketone neg, Blood neg, Protein neg, Urobili 0.2, Nitrite neg, Leuko neg. 01-06-24 W 5.6, Dirt Bike Racer 0.63 01-15-24 UC > 10,000 cfu/ml mixed superficial kala F Multiple microorganisms present, Probable contamination, UM RBC U 1, WBC U 32, JUAN J none seen, Hy.Cast <1, SQ epi 1 FOLLOW UP: Saturday02-03-24 UC, UM, CBC,CRP,COMP 01-29-24 ScribeJennifer [facility] 01/20/2024 Type 2 diabetes mellitus with hyperglycemia (ICD-10 - E11.65) 1. 73 year old female with a prior history of HTN, chronic cystitis, Type 2 diabetes mellitus, and history of candidal UTI. 2. Bladder pain syndrome, inflammatory cystitis, and recurrent UTI's.- recent history of multiple negative cultures, and urine microscopic studies, despite being symptomatic -01-20-24 large amount of pus cells - 01-20-24 lab culture shows no bacteria 3. 01-20-24 recurrent UTI, symptomatic -injection of Invanz 1000mg IM 01-20-24 4. 01-19-24 pyriua with neg cultures suggestive of cystitis, refer back to Urology 5. Continue Fosfomycin prophylaxis, started 01-18-24, one dose once a week for UTI prevention. -01-15-24 discontinued Methenamine 6. Bladder pain syndrome. - Continue Neurontin 300mg TID - continue Carbamazepine 100mg BID, no side effects raise dose next week 7. Refer back to Urologist to find out what is causing inflammation and scope - recommend [facility] for second opinion and to review case LABS 12-03-23 HLA-B*15:02 Negative 12-26-23 UA Color yellow, clear Sp.[place] 1.011, U pH 6.5, U glucose negative, U bili negative, Ketone neg, Blood neg, Protein neg, Urobili 0.2, Nitrite neg, Leuko neg. 01-06-24 W 5.6, Dirt Bike Racer 0.63 01-15-24 UC > 10,000 cfu/ml mixed superficial kala F Multiple microorganisms present, Probable contamination, UM RBC U 1, WBC U 32, JUAN J none seen, Hy.Cast <1, SQ epi 1 Follow up: 01-21-24 and in one week Vic Jennifershamar Barnhart [facility] 01/15/2024 Type 2 diabetes mellitus with hyperglycemia (ICD-10 - E11.65) 1. 73 year old female with a prior history of HTN, chronic cystitis, Type 2 diabetes mellitus, and history of candidal UTI. 2. Bladder pain syndrome, inflammatory cystitis, and recurrent UTI's.- recent history of multiple negative cultures, and urine microscopic studies, despite being symptomatic 3. recurrent UTI- 01-15-24 -01-15-[address] of the abdomen 12/2022 Nephrolithiasis on the left without obstruction with some adjacentcortical scarring, unchanged 5. 01-15-24 Start Fosfomycin prophylaxis , one dose once a week for UTI prevention. 6. Bladder pain syndrome. - Continue Neurontin 300mg TID -01-15-24 Start Carbamazepine 100mg BID LABS 12-03-23 HLA-B*15:02 Negative 12-26-23 UA Color yellow, clear Sp.[place] 1.011, U pH 6.5, U glucose negative, U bili negative, Ketone neg, Blood neg, Protein neg, Urobili 0.2, Nitrite neg, Leuko neg. 01-06-24 W 5.6, Dirt Bike Racer 0.63 Follow up: 2 weeks UC,UM ordered 01-15-24 Vic Jennifershamar Barnhart [facility] 12/03/2023 Type 2 diabetes mellitus with hyperglycemia (ICD-10 - E11.65) 1. Recurrent urinary tract infections - 2. Bladder pain syndrome -refill Gabapentin for pain control 3. 3 UTI symptomatic pain 4.. Cystoscopy at Dr. Jefferson's office with severe inflammation She has had a bladder tumor resection with negative malignancy 5. CT of the abdomen 12/2022 Nephrolithiasis on the left without obstruction with some adjacent cortical scarring, unchanged 7. Prophylaxis for UTI w/methenamine 8. Will Re-order this lab test today 12-03-23, check HLA B 1502 for Tegretol use. Lab test as it was not run last time. Reinstutiue gabapentin for Bladder pain syndrome. LABS Follow up: 3-4 weeks Jennifer Ho CMA Plan Of Treatment Pending Test Test Name Order Date Prothrombin Time 59712 07/30/2019 ABORh 98637, 26451 07/30/2019 Antibody Screen 90183 07/30/2019 Culture Urine 22953 11/12/2023 Culture Urine 17927 01/20/2024 Basic Metabolic Panel (BMP) 66845 2019 Basic Metabolic Panel (BMP) 16612 2021 Basic Metabolic Panel (BMP) 95690 2021 Blood Urea Nitrogen (BUN) 90842 05/14/19 20 Blood Urea Nitrogen (BUN) 11381 07/02/19 20 Blood Urea Nitrogen (BUN) 18883 04/28/19 20 Blood Urea Nitrogen (BUN) 65423 05/19/19 20 CBC w\ Auto Diff 51259 09/06/2021 CBC w\ Auto Diff 21835 06/07/2021 Creatinine (B) 95044 07/02/2019 Creatinine (B) 93338 05/14/2019 Creatinine (B) 21821 04/28/2019 Creatinine (B) 94954 05/19/2019 Partial Thromboplastin Time 04664 2019 CBC Reflex Man Diff 14185, 91560 020 Microscopic Urine 58454 01/20/2024 Microscopic Urine 05899 11/12/2023 Miscellaneous Test 11/19/2023 CTA Head w/ + w/o Contrast-34082 020 CTA Head w/ + w/o Contrast-13002 020 CTA Neck w/ + w/o Contrast-89566 020 CTA Neck w/ + w/o Contrast-44119 020 MRI Brain w/ + w/o Cont-95120 04/28/2019 MRI Brain w/ + w/o Cont-29047 05/14/2019 Electrocardiogram 12 Lead Tracing-53772 06/07/2021 Electrocardiogram 12 Lead Tracing-79131 09/06/2021 Culture Urine Reflex--[id number] 09/06/2021 Schedule Confirmation 11/12/2023 Schedule Confirmation 11/12/2023 Insurance Providers Payer Name Payer Address Payer Phone Subscriber Number Group Number Insured Name Patient Relationship to Insured Coverage Start Date Coverage End Date [place] Medicare [address] [place] [phone] [id number] Ede Jackson Self - patient is the insured [place] [address] [place] [phone] [id number] Ede Jackson Self - patient is the insured Medical (General) History Medical History History ICD Code rheumatoid arthritis depression DM HTN anxiety hyperlipidemia neuropathy urinary tract infection measles Arthritis Back Trouble bronchitis bladder incontinence short term memory loss Surgical History Surgery Date(Month/Year) bladder scraping 03/2023 carpal tunnel R&L r foot neuroma bulkamid tonsillectomy and adenoidectomy tubal ligation bilateral carpal tunnel release 1994 right eye excision of tumor 1996 right foot neuroma excision 1998 hysterectomy 1995 right TKA 2000 left TKA 2002 lumpectomy right breast 2002 cholectomy 2005 left TKA revision 2012 cervical spine surgery x 2 (had fusion w ith bone graft) 2006 transvaginal mesh 2002 CEIOL right eye 2017 Hospitalization History Reason Date(Month/Year) Fall and hit head 02/2023 infection and bladder/uterine pain; elev ated WBC 01/15/2023 for surgical procedures
--- OUTSIDE RECORDS SUMMARY | 2024-11-13 17:52 | XMS_ITS | Patient Health Record ---
Author Organization [facility] Address [address], [place] [id number] Reason For Referral No Information Plan Of Treatment No Information
--- OUTSIDE RECORDS SUMMARY | 2024-11-13 17:53 | XMS_ITS | Patient Health Record ---
Author Organization [facility], [facility] Address [address] [place] [address] Care Team Providers Care Radiology Resident Name Role Phone Jason Garcias Primary Care Provider PEG Millan Unavailable [phone] DK JEFFERSON Unavailable [phone] Allergies Allergen (clinical drug ingredient) Drug/Non Drug Allergy documented on EMR Reaction Allergy Type Onset Date Status Iodine nausea and vomiting Drug Allergy Active Shellfish (FN) Shellfish-derived Products nausea and vomiting Drug Allergy Active Substance with sulfonamide structure and antibacterial mechanism of action (substance) Sulfa Antibiotics Unknown Drug Allergy Active Results Component Value Reference Range Notes Urinalysis, Routine Reviewed date:02/24/2024 01:50:02 PM Interpretation: Performing Lab: Notes/Report: Urine-Color yellow Appearance clear Glucose - Bilirubin - Ketones - Specific [place] 1.015 Occult Blood - pH 6.0 Urine Protein - Urobilinogen,Semi-Qn - Nitrite, Urine - WBC Esterase - Reason For Referral No Information Medications Medication SIG (Take, Route, Frequency, Duration) Notes Start Date End Date Status Biotin 5000 5 MG 1 capsule Orally Onc e a day Active metFORMIN HCl ER 500 MG 1 tablet Orally bid Not-Taking Folic Acid 800 MCG 2 tablet Orally Once a day Not-Taking Vitamin C 500 MG 1 tablet Orally Once a day Not-Taking Fluticasone Propionate 50 MCG/ACT 1 spray in each nostril Nasally prn Not-Taking Vitamin D3 1.25 MG (22251 UT) 1 tablet Orally Once weekly Active Valsartan 160 MG 1 tablet Orally Once a day Not-Taking Hydroxychloroquine Sulfate 200 MG 1 tablet Orally bid Active Multiple Vitamins - 1 tablet Orally Once a day Active Ondansetron 4 MG 1 tablet on the tongue and allow to dissolve Orally every 6 hours as needed; Duration: 30 days 04/04/2023 Not-Taking Tylenol 8 Hour Arthritis Pain 650 MG 2 tablets Orally Twice daily Active Clear Eyes Complete - 1-2 drops Ophthalm ic qid Active ZyrTEC Active Estradiol 0.1 MG/GM 1gm Vaginal nightly x 4w, then twice weekly thereafter; Duration: 30 days 12/03/2022 Not-Taking Venlafaxine HCl 75 MG 2 tablets qam 1 tablet qpm Orally Active Pravastatin Sodium 40 MG 1 tablet Orally Once a day Not-Taking Soliqua 100-33 UNT-MCG/ML 20 units Subcu taneous daily Active glipiZIDE 10 MG 2 tablets Orally twice a day Active Gabapentin Active HYDROcodone-Acetaminophen Active carBAMazepine 100 MG 2 tablets Orally Twice a day Active Meropenem Active Immunizations Vaccine Route Administration Date Status Comme nts Pneumococcal polysaccharide PPV23 Unknown 03/29/2017 Administered Immunizatio n Given by from source eCW:: Influenza, seasonal, injectable, preservative free, 3 yrs and above Unknown 01/07/2018 Administered Immunization Giv en by from source eCW:: Influenza, seasonal, injectable, preservative free, 3 yrs and above Unknown 07/30/2019 Refused Immunization Giv en by from source eCW:: Influenza (whole), CPT 59849 Inactive Unknown 12/19/2016 Administered Social History Tobacco Use: Social History Observation Description Date Details (start date - stop date) Never Smoker NA - NA Tobacco Control (Standard) Question Answer Notes Tobacco use: Nonsmoker Problems Problem Type SNOMED Code ICD Code Onset Dates Problem Status W/U Status Risk Notes Problem Chronic pain (14708214) Other chronic pain (G89.29) Active confirmed Problem Urge incontinence of urine (48937748) Urge incontinence (N39.41) Active confirmed Problem Mixed incontinence (344852434) Mixed incontinence (N39.46) Active confirmed Problem Atrophic vaginitis (54543714) Atrophic vaginitis (N95.2) Active confirmed Problem Herniation of rectum into vagina (959220045) Pelvic organ prolapse quantification stage 1 rectocele (N81.6) Active confirmed Problem Mixed incontinence (260143957) Urinary incontinence, mixed (N39.46) Active confirmed Problem Hyperlipidaemia (86245258) Hyperlipidemia, unspecified hyperlipidemia type (E78.5) Active confirmed Problem Atherosclerosis (13912574) Atherosclerosis (I70.90) Active confirmed Problem Carotid artery occlusion (744201051) Stenosis of carotid artery, unspecified laterality (I65.29) Active confirmed Problem Chronic cystitis (54147823) Chronic cystitis (N30.20) Active confirmed Problem SI - Stress incontinence (77904251) Stress incontinence (N39.3) Active confirmed Problem Urge incontinence of urine (29819573) Urge incontinence of urine (N39.41) Active confirmed Problem Disorder of urinary bladder (29920740) Benign bladder mass (N32.89) Active confirmed Problem Chronic depression (258472461) Chronic depression (F32.9) Active confirmed Problem Recurrent urinary tract infection (947240808) Recurrent UTI (N39.0) Active confirmed Problem Urinary catheter in situ (finding) (986574990) Urinary catheter present (Z96.0) Active confirmed Problem Long-term current use of anticoagulant (887089667) Anticoagulant long-term use (Z79.01) Active confirmed Problem Pain in female genitalia on intercourse (85586481) Dyspareunia, female (N94.10) Active confirmed Problem Obesity (574582522) Obesity (BMI 30-39.9) (E66.9) Active confirmed Vital Signs Heart Rate 79 /min 02/24/2024 Height-cm 168.91 cm 02/24/2024 Blood pressure diastolic 64 mm Hg 02/24/2024 Weight-kg 96.16 kg 02/24/2024 Height 66.5 in 02/24/2024 Blood pressure systolic 102 mm Hg 02/24/2024 Weight 212 lbs 02/24/2024 BMI 33.7 kg/m2 02/24/2024 Procedures Procedure Date Ordered Date Performed Result Body Sit e Bladder Scan 02/24/2024 02/24/2024 167 ml Encounters Encounter Location Date Provider Diagnosis [facility] [address] [place] [address] 05/05/2024 DK JEFFERSON [facility] [address] [place] [address] 02/24/2024 PEG DAVIS Complicated UTI (urinary tract infection) N39.0 ; Urinary retention R33.9 and Benign bladder mass N32.89 Assessments Encounter Date Diagnosis (ICD Code) Assessment Notes Treatment Notes Treatment Clinical Notes Section Notes 02/24/2024 Complicated UTI (urinary tract infection) (ICD-10 - N39.0) Pt has continued to have recurrrent UTIs despite fulguration one year ago and trials of various antibiotic suppression by Dr. Singh, most recently fosfomycin. She has been hospitalized twice in the last month for complicated UTI with encephalopathy. She has an PICC line right now and she is on week 1 of 4 of IV Invanz. She has poorly controlled diabetes, poor bladder emptying, which are both big contributing factors. Both Dr. Singh and patient request repeat cystoscopy. Will schedule with Dr. Jefferson at next available. 02/24/2024 Urinary retention (ICD-10 - R33.9) Pt has continued to have recurrrent UTIs despite fulguration one year ago and trials of various antibiotic suppression by Dr. Singh, most recently fosfomycin. She has been hospitalized twice in the last month for complicated UTI with encephalopathy. She has an PICC line right now and she is on week 1 of 4 of IV Invanz. She has poorly controlled diabetes, poor bladder emptying, which are both big contributing factors. Both Dr. Singh and patient request repeat cystoscopy. Will schedule with Dr. Jefferson at next available. 02/24/2024 Benign bladder mass (ICD-10 - N32.89) Pt has continued to have recurrrent UTIs despite fulguration one year ago and trials of various antibiotic suppression by Dr. Singh, most recently fosfomycin. She has been hospitalized twice in the last month for complicated UTI with encephalopathy. She has an PICC line right now and she is on week 1 of 4 of IV Invanz. She has poorly controlled diabetes, poor bladder emptying, which are both big contributing factors. Both Dr. Singh and patient request repeat cystoscopy. Will schedule with Dr. Jefferson at next available. Plan Of Treatment Pending Test Test Name Order Date Prothrombin Time 53556 07/30/2019 ABORh 31582, 30429 07/30/2019 Antibody Screen 45631 07/30/2019 Basic Metabolic Panel 13175 07/30/2019 Basic Metabolic Panel 37363 09/06/2021 Basic Metabolic Panel 69503 06/07/2021 Blood Urea Nitrogen (BUN) 31247 04/28/19 20 Blood Urea Nitrogen (BUN) 43260 05/19/19 20 Blood Urea Nitrogen (BUN) 47597 05/14/19 20 Blood Urea Nitrogen (BUN) 39137 07/02/19 20 CBC w\ Auto Diff 93839 09/06/2021 CBC w\ Auto Diff 42835 06/07/2021 Creatinine (B) 93260 05/19/2019 Creatinine (B) 03784 04/28/2019 Creatinine (B) 14950 05/14/2019 Creatinine (B) 93803 07/02/2019 Partial Thromboplastin Time 05837 2019 CBC Reflex Man Diff 71973, 87240 020 Culture Urine Reflex--34527 09/06/2021 Bladder scan 12/22/2019 CTA Head w/ + w/o Contrast-98534 020 CTA Head w/ + w/o Contrast-52211 020 CTA Neck w/ + w/o Contrast-27466 020 CTA Neck w/ + w/o Contrast-91802 020 MRI Brain w/ + w/o Cont-91239 05/14/2019 MRI Brain w/ + w/o Cont-86607 04/28/2019 Electrocardiogram 12 Lead Tracing-51990 06/07/2021 Electrocardiogram 12 Lead Tracing-14857 09/06/2021 zzDIAGNOSTIC COLONOSCOPY--14612 03/26/19 Bladder Scan 12/03/2022 Insurance Providers Payer Name Payer Address Payer Phone Subscriber Number Group Number Insured Name Patient Relationship to Insured Coverage Start Date Coverage End Date [place] [address] [place] [id number] Marisa Jackson Self - patient is the insured [place] of [place] [address] [employer] [facility] [place], [place] [id number] Marisa Jackson Self - patient is the insured Medications Administered Medication Instructions Date of Administration Dosage Notes Rocephin 02/06/2023 1 g Pt tolerated w ell. Medical (General) History Medical History History ICD Code rheumatoid arthritis depression GERD DM HTN anxiety hyperlipidemia sleep apnea UTIs Surgical History Surgery Date(Month/Year) TURBT bulkamid tonsillectomy and adenoidectomy tubal ligation bilateral carpal tunnel release 1994 right eye excision of tumor 1996 right foot neuroma excision 1998 hysterectomy 1995 right TKA 2000 left TKA 2002 lumpectomy right breast 2002 cholectomy 2005 left TKA revision 2012 cervical spine surgery x 2 (had fusion w ith bone graft) 2006 transvaginal mesh 2002 CEIOL right eye 2017 Hospitalization History Reason Date(Month/Year) multiple recent hosp stays for UTIs for surgical procedures
--- NOTE | 2024-11-13 17:57 | W.ED.FEMALGU ---
Documented by User: ALFONSO Mejia 11/13/24 20:26 HPI - Female Genitourinary General: Chief complaint: Urogenital-Female Stated complaint: possible uti Time Seen by Provider: 11/13/24 17:50 History of Present Illness: Patient is a 74-year-old female that is on hospice, does not know why she is here, reported by EMS for possible UTI. Hospice apparently called the EMS. Family has not yet arrived. Patient does not have any complaints. Christiano is at bedside. He relates that she has a long-term history of UTI, chronic indwelling Andrew, was on hospice to help with resources for cardiac murmur, patient was out of skilled days on rehabilitation. She now is living home, and typically he can help her transfer, and get her to eat. She does have chronic memory/dementia issues. He stated the last 48 hours, she has had difficulty with responding to him, increased fatigue, fever 100?101, and today refused to eat, ambulate, and was confused. He states this is consistent with previous UTIs. Hospice was revoked today. Christiano states his is still a DNR, however they would like treatment. Related Data Home Medications ?Medication ?Instructions ?Recorded ?Confirmed albuterol sulfate 2.5 mg/3 mL 2.5 mg inhalation Q4H PRN 03/17/19 03/01/24 (0.083 %) solution for nebulization Shortness Of Breath Or Wheezing Lactobacillus 1 cap PO DAILY PRN use with 10/29/19 03/01/24 acidophilus-Bifidobac.animalis 2 antibiotics billion cell capsule (One-A-Day Trubiotics) [id number] acid 0.4 1 tab PO DAILY 10/29/19 03/01/24 mg-lycopene 300 mcg-lutein 250 mcg tablet (Complete Multivitamin Adult 50 Plus) acetaminophen 325 mg tablet 325 mg PO QID PRN pain or fever 02/29/24 02/29/24 (Tylenol) carbamazepine 200 mg tablet 200 mg PO BID 02/29/24 02/29/24 cholecalciferol (vitamin D3) 50 50 mcg PO DAILY 02/29/24 02/29/24 mcg (2,000 unit) tablet (Vitamin D3) venlafaxine 75 mg tablet 75 mg PO BID 02/29/24 03/01/24 fosfomycin tromethamine 3 gram 1 packet PO Q7D 03/01/24 03/01/24 oral packet Held on 03/04/24. Instructions: as per ID at [facility] hydrochlorothiazide 25 mg tablet 25 mg PO QAM 03/01/24 03/01/24 hydroxychloroquine 200 mg tablet 400 mg PO DAILY 03/01/24 03/01/24 metformin 500 mg tablet,extended 500 mg PO DAILY 03/01/24 03/01/24 release 24 hr phenylephrine 0.2 %-glycerin 0.25 2 drp ophthalmic (eye) BID PRN Dry 03/01/24 03/01/24 % eye drops (Clear Eyes Sensitive) Eyes polyethylene glycol 3350 17 17 g PO BID PRN constapation 03/01/24 03/01/24 gram/dose oral powder Previous Rx's ?Medication ?Instructions ?Recorded albuterol sulfate 90 mcg/actuation 2 puff inhalation Q6H PRN 01/26/20 aerosol inhaler (ProAir HFA) shortness of breath or wheezing #8.5 grams Allergies Allergy/AdvReac Type Severity Reaction Status Date / Time codeine AdvReac Severe ALTERED Verified 02/28/24 22:35 MENTAL STATUS shellfish derived AdvReac Unknown VOMITING Verified 02/28/24 22:35 AND DIARRHEA Review of Systems General: Reports: ROS unobtainable due to medical condition Narrative: ROS per . REPLACED BY [facility] PFSH: Medical History (Updated 11/13/24 @ 19:55 by ALFONSO Mejia) Carpal tunnel syndrome of left wrist 1994 Encounter for tubal ligation counseling Dyspnea Immunosuppression Osteoarthritis of carpometacarpal joint of left thumb Osteoarthritis of shoulders, bilateral Undifferentiated connective tissue disease Surgical History (Updated 02/29/24 @ 05:55 by Omid Garcia MD) H/O Spinal surgery Hx of cholecystectomy H/O bladder repair surgery H/O lumpectomy BREAST ON LEFT 2001 H/O eye surgery TUMOR REMOVAL 197 H/O tubal ligation History of foot surgery RIGHT 1998 H/O adenoidectomy History of tonsillectomy History of knee replacement LEFT 2001 AND RIGHT 2002 History of bilateral knee arthroplasty Social History Smoking and tobacco/nicotine status: never used tobacco/nicotine Alcohol intake: never Physical Exam Const: COMMON NORMALS: no acute distress, average body habitus, patient oriented x3 and no limitations HENMT: COMMON NORMALS: normocephalic, atraumatic and hearing grossly normal bilaterally HEAD & SCALP: normocephalic and atraumatic Neck/C-Spine: COMMON NORMALS: full ROM, no lymphadenopathy and supple Lymph: LYMPHATIC: no lymphadenopathy noted Chest: COMMONS NORMALS: normal inspection of the chest Resp: COMMON NORMALS: normal respiratory effort, No retractions and clear to auscultation bilaterally AUSCULTATION: clear to auscultation bilaterally Cardio: COMMON NORMALS: regular rate and regular rhythm RATE: regular rate RHYTHM: regular rhythm GI: COMMON NORMALS: Normal to inspection, nondistended, normoactive bowel sounds present, Soft to palpation, non-tender and No hepatosplenomegaly present PALPATION: Yes Soft to palpation and Yes No hepatosplenomegaly present : COMMON NORMALS: Yes no CVA tenderness BLADDER/KIDNEY EXAM: Yes no CVA tenderness Back/Pelvis: COMMON NORMALS: no CVA tenderness Extremity: COMMON NORMALS: normal to inspection, full ROM and capillary refill normal Neuro: COMMON NORMALS: patient oriented x3, CN's II-XII intact bilaterally and moves all extremities Psych: COMMON NORMALS: mental status grossly normal, Normal thought process present and cooperative THOUGHT PROCESS: Normal thought process present Skin: COMMON NORMALS: no rashes or lesions noted, no wounds and turgor normal GENERAL SKIN EXAM: no rashes or lesions noted and turgor normal Course Consultations: Consultation #1: D/w Dr. Powell/Hospitalist, accepted admission Vital Signs: Vital signs: Vital Signs Temperature 102 F H 11/13/24 17:47 Pulse Rate 92 11/13/24 20:57 Respiratory Rate 19 H 11/13/24 17:47 Blood Pressure 117/59 11/13/24 20:57 Pulse Oximetry 94 11/13/24 20:57 Oxygen Delivery Me thod Nasal Cannula 11/13/24 21:30 Oxygen Flow Rate 2 11/13/24 19:31 [facility] - Female Medical Decision Making Patient is a 74-year-old female on hospice for cardiac murmur, presented with mental status changes over the last 48 hours, consistent with previous UTI. She has chronic indwelling Andrew. Urinalysis has positive nitrates, greater than 100 CFU/hpf of WBC. Will treat with UTI concern, check CBC, CMP. states they would like full treatment however she is DNR, and hospice is being revoked. Patient was accepted by hospitalist. Labs are still pending. Lab of creatinine was 1.8, which is doubled out of her baseline, making SHOAIB. Certainly ATN would be most likely, however will rule out obstructive uropathy by given 1 L IV fluid, and check CT of abdomen and pelvis without contrast Patient originally seen by Ms. Guadalupe PA-C. I agree with her history, evaluation, and management. Lab Data 11/13/24 19:16 11/13/24 19:16 Radiology Impressions Chest X-Ray 11/13/24 18:25 IMPRESSION: Left lower lobe subtle opacity which is nonspecific but may be reflective of a infectious etiology such as pneumonia. Abdomen/Pelvis CT 11/13/24 19:55 IMPRESSION: 1. Mild perinephric fat stranding in the perirenal fat which is similar to prior 02/29/2024. Pyelonephritis is a differential consideration. Correlate with urinalysis. 2. Nonobstructing 9 mm calculus in the midpole of the left kidney similar to prior. No hydronephrosis or nephrolithiasis in either kidney. 3. Interval appearance of left lower lobe hazy opacities which is nonspecific but may be seen in pneumonia. 4. Coarse coronary artery calcifications. 5. Hepatic steatosis. Laboratory Results WBC 14.24 10^3/uL (3.29-11.43) H 11/13/24 19:16 RBC 4.48 10^6/uL (3.85-5.65) 11/13/24 19:16 Hgb 13.50 g/dL (11.27-16.99) 11/13/24 19:16 Hct 41.4 % (36-47) 11/13/24 19:16 MCV 92.4 fl (85-98) 11/13/24 19:16 MCH 30.1 pg (27-33) 11/13/24 19:16 MCHC 32.6 g/dL (30-55) 11/13/24 19:16 RDW 12.8 % (12.1-15.1) 11/13/24 19:16 Plt Count 291 10^3/cmm (157-399) 11/13/24 19:16 MPV 9.7 fL (7.4-10.4) 11/13/24 19:16 Neut % (Auto) 76.2 % 11/13/24 19:16 Lymph % (Auto) 14.7 % 11/13/24 19:16 [place] % (Auto) 7.7 % 11/13/24 19:16 Eos % (Auto) 0.6 % 11/13/24 19:16 Baso % (Auto) 0.1 % 11/13/24 19:16 Neut # (Auto) 10.84 10^3/uL (1.8-7.7) H 11/13/24 19:16 Lymph # (Auto) 2.1 10^3/uL (0.8-4.8) 11/13/24 19:16 [place] # (Auto) 1.1 10^3/uL (0.2-0.9) H 11/13/24 19:16 Eos # (Auto) 0.1 10^3/uL (0.0-0.8) 11/13/24 19:16 Baso # (Auto) 0.0 10^3/uL (0.0-0.1) 11/13/24 19:16 Nucleated RBC % (auto) 0 % 11/13/24 19:16 Nucleated RBCs # 0.0 /100WBC 11/13/24 19:16 Sodium 134 mmol/L (136-145) L 11/13/24 19:16 Potassium 4.8 mmol/L (3.5-5.1) 11/13/24 19:16 Chloride 95 mmol/L (98-107) L 11/13/24 19:16 Carbon Dioxide 25 mmol/L (22-29) 11/13/24 19:16 Anion Gap 18.8 (5-19) 11/13/24 19:16 BUN 27 mg/dL (8-23) H 11/13/24 19:16 Creatinine 1.8 mg/dL (0.5-0.9) H 11/13/24 19:16 GFR Calculation Not Reportable 11/13/24 19:16 Glucose 198 mg/dL (65-115) H 11/13/24 19:16 Calculated Osmolality 289 mOsm/kg (285-295) 11/13/24 19:16 Calcium 9.4 mg/dL (8.5-10.5) 11/13/24 19:16 Total Bilirubin 0.6 mg/dL (0.15-1.2) 11/13/24 19:16 AST 28 U/L (0-32) 11/13/24 19:16 ALT 33 U/L (0-33) 11/13/24 19:16 Alkaline Phosphatase 85 U/L (35-105) 11/13/24 19:16 Total Protein 8.0 g/dL (6.6-8.7) 11/13/24 19:16 Albumin 3.9 g/dL (3.5-5.2) 11/13/24 19:16 Globulin 4.1 g/dL (1.3-4.6) 11/13/24 19:16 Procalcitonin 0.38 ng/mL (0-0.5) 11/13/24 19:16 Urine Color Yellow (Yellow) 11/13/24 17:54 Urine Appearance Turbid (CLEAR) A 11/13/24 17:54 Urine pH 5.5 (5-7) 11/13/24 17:54 Ur Specific [place] 1.015 (1.005-1.030) 11/13/24 17:54 Urine Protein 2+ (Negative) A 11/13/24 17:54 Urine Glucose (UA) Negative (Normal) 11/13/24 17:54 Urine Ketones Negative (Negative) 11/13/24 17:54 Urine Blood 2+ (Negative) A 11/13/24 17:54 Urine Nitrate Positive (Negative) A 11/13/24 17:54 Urine Bilirubin Negative (Negative) 11/13/24 17:54 Urine Urobilinogen 1.0 mg/dL (Negative) 11/13/24 17:54 Ur Leukocyte Esterase 3+ (Negative) A 11/13/24 17:54 Urine RBC 11-20 /hpf (0-2) H 11/13/24 17:54 Urine WBC >100 /hpf (0-5) H 11/13/24 17:54 Ur Squamous Epith Cells 11-20 /hpf (0-5) H 11/13/24 17:54 Amorphous Sediment Not Reportable 11/13/24 17:54 Urine Bacteria 4+ /hpf (NONE) H 11/13/24 17:54 Hyaline Casts 26.12 /lpf 11/13/24 17:54 Influenza A (PCR) Negative (Negative) 11/13/24 18:29 Influenza Type B (PCR) Negative (Negative) 11/13/24 18:29 RSV (PCR) Negative (Negative) 11/13/24 18:29 SARS-CoV-2 (PCR) Negative (Negative) 11/13/24 18:29 All radiology interpretation(s) finalized by discharge Discharge Plan Discharge Patient Disposition: Admitted As Inpatient Admit Provider: Viri Chapman Clinical Impression: Urinary tract infection, Acute metabolic encephalopathy, SHOAIB (acute kidney injury) Condition: Stable Coding Level of Care Code ED Hand Launderer for Chg Fwd Documented by User: Murtaza Chandler DO 11/13/24 23:25 HPI - Female Genitourinary General: Chief complaint: Urogenital-Female Stated complaint: possible uti Time Seen by Provider: 11/13/24 17:50 Related Data Home Medications ?Medication ?Instructions ?Recorded ?Confirmed albuterol sulfate 2.5 mg/3 mL 2.5 mg inhalation Q4H PRN 03/17/19 03/01/24 (0.083 %) solution for nebulization Shortness Of Breath Or Wheezing Lactobacillus 1 cap PO DAILY PRN use with 10/29/19 03/01/24 acidophilus-Bifidobac.animalis 2 antibiotics billion cell capsule (One-A-Day Trubiotics) [id number]-tym-bxlfp acid 0.4 1 tab PO DAILY 10/29/19 03/01/24 mg-lycopene 300 mcg-lutein 250 mcg tablet (Complete Multivitamin Adult 50 Plus) acetaminophen 325 mg tablet 325 mg PO QID PRN pain or fever 02/29/24 02/29/24 (Tylenol) carbamazepine 200 mg tablet 200 mg PO BID 02/29/24 02/29/24 cholecalciferol (vitamin D3) 50 50 mcg PO DAILY 02/29/24 02/29/24 mcg (2,000 unit) tablet (Vitamin D3) venlafaxine 75 mg tablet 75 mg PO BID 02/29/24 03/01/24 fosfomycin tromethamine 3 gram 1 packet PO Q7D 03/01/24 03/01/24 oral packet Held on 03/04/24. Instructions: as per ID at [facility] hydrochlorothiazide 25 mg tablet 25 mg PO QAM 03/01/24 03/01/24 hydroxychloroquine 200 mg tablet 400 mg PO DAILY 03/01/24 03/01/24 metformin 500 mg tablet,extended 500 mg PO DAILY 03/01/24 03/01/24 release 24 hr phenylephrine 0.2 %-glycerin 0.25 2 drp ophthalmic (eye) BID PRN Dry 03/01/24 03/01/24 % eye drops (Clear Eyes Sensitive) Eyes polyethylene glycol 3350 17 17 g PO BID PRN constapation 03/01/24 03/01/24 gram/dose oral powder Previous Rx's ?Medication ?Instructions ?Recorded albuterol sulfate 90 mcg/actuation 2 puff inhalation Q6H PRN 01/26/20 aerosol inhaler (ProAir HFA) shortness of breath or wheezing #8.5 grams Allergies Allergy/AdvReac Type Severity Reaction Status Date / Time codeine AdvReac Severe ALTERED Verified 02/28/24 22:35 MENTAL STATUS shellfish derived AdvReac Unknown VOMITING Verified 02/28/24 22:35 AND DIARRHEA REPLACED BY [facility] PFSH: Medical History (Updated 11/13/24 @ 19:55 by ALFONSO Mejia) Carpal tunnel syndrome of left wrist 1994 Encounter for tubal ligation counseling Dyspnea Immunosuppression Osteoarthritis of carpometacarpal joint of left thumb Osteoarthritis of shoulders, bilateral Undifferentiated connective tissue disease Surgical History (Updated 02/29/24 @ 05:55 by Omid Garcia MD) H/O Spinal surgery Hx of cholecystectomy H/O bladder repair surgery H/O lumpectomy BREAST ON LEFT 2001 H/O eye surgery TUMOR REMOVAL 197 H/O tubal ligation History of foot surgery RIGHT 1998 H/O adenoidectomy History of tonsillectomy History of knee replacement LEFT 2001 AND RIGHT 2002 History of bilateral knee arthroplasty Social History Smoking and tobacco/nicotine status: never used tobacco/nicotine Alcohol intake: never Course Vital Signs: Vital signs: Vital Signs Temperature 102 F H 11/13/24 17:47 Pulse Rate 92 11/13/24 20:57 Respiratory Rate 19 H 11/13/24 17:47 Blood Pressure 117/59 11/13/24 20:57 Pulse Oximetry 94 11/13/24 20:57 Oxygen Delivery Me thod Nasal Cannula 11/13/24 21:30 Oxygen Flow Rate 2 11/13/24 19:31 [facility] - Female Medical Decision Making Patient is a 74-year-old female on hospice for cardiac murmur, presented with mental status changes over the last 48 hours, consistent with previous UTI. She has chronic indwelling Andrew. Urinalysis has positive nitrates, greater than 100 CFU/hpf of WBC. Will treat with UTI concern, check CBC, CMP. states they would like full treatment however she is DNR, and hospice is being revoked. Patient originally seen by Ms. Guadalupe PA-C. I agree with her history, evaluation, and management. Lab Data 11/13/24 19:16 11/13/24 19:16 Radiology Impressions Chest X-Ray 11/13/24 18:25 IMPRESSION: Left lower lobe subtle opacity which is nonspecific but may be reflective of a infectious etiology such as pneumonia. Abdomen/Pelvis CT 11/13/24 19:55 IMPRESSION: 1. Mild perinephric fat stranding in the perirenal fat which is similar to prior 02/29/2024. Pyelonephritis is a differential consideration. Correlate with urinalysis. 2. Nonobstructing 9 mm calculus in the midpole of the left kidney similar to prior. No hydronephrosis or nephrolithiasis in either kidney. 3. Interval appearance of left lower lobe hazy opacities which is nonspecific but may be seen in pneumonia. 4. Coarse coronary artery calcifications. 5. Hepatic steatosis. Laboratory Results WBC 14.24 10^3/uL (3.29-11.43) H 11/13/24 19:16 RBC 4.48 10^6/uL (3.85-5.65) 11/13/24 19:16 Hgb 13.50 g/dL (11.27-16.99) 11/13/24 19:16 Hct 41.4 % (36-47) 11/13/24 19:16 MCV 92.4 fl (85-98) 11/13/24 19:16 MCH 30.1 pg (27-33) 11/13/24 19:16 MCHC 32.6 g/dL (30-55) 11/13/24 19:16 RDW 12.8 % (12.1-15.1) 11/13/24 19:16 Plt Count 291 10^3/cmm (157-399) 11/13/24 19:16 MPV 9.7 fL (7.4-10.4) 11/13/24 19:16 Neut % (Auto) 76.2 % 11/13/24 19:16 Lymph % (Auto) 14.7 % 11/13/24 19:16 [place] % (Auto) 7.7 % 11/13/24 19:16 Eos % (Auto) 0.6 % 11/13/24 19:16 Baso % (Auto) 0.1 % 11/13/24 19:16 Neut # (Auto) 10.84 10^3/uL (1.8-7.7) H 11/13/24 19:16 Lymph # (Auto) 2.1 10^3/uL (0.8-4.8) 11/13/24 19:16 [place] # (Auto) 1.1 10^3/uL (0.2-0.9) H 11/13/24 19:16 Eos # (Auto) 0.1 10^3/uL (0.0-0.8) 11/13/24 19:16 Baso # (Auto) 0.0 10^3/uL (0.0-0.1) 11/13/24 19:16 Nucleated RBC % (auto) 0 % 11/13/24 19:16 Nucleated RBCs # 0.0 /100WBC 11/13/24 19:16 Sodium 134 mmol/L (136-145) L 11/13/24 19:16 Potassium 4.8 mmol/L (3.5-5.1) 11/13/24 19:16 Chloride 95 mmol/L (98-107) L 11/13/24 19:16 Carbon Dioxide 25 mmol/L (22-29) 11/13/24 19:16 Anion Gap 18.8 (5-19) 11/13/24 19:16 BUN 27 mg/dL (8-23) H 11/13/24 19:16 Creatinine 1.8 mg/dL (0.5-0.9) H 11/13/24 19:16 GFR Calculation Not Reportable 11/13/24 19:16 Glucose 198 mg/dL (65-115) H 11/13/24 19:16 Calculated Osmolality 289 mOsm/kg (285-295) 11/13/24 19:16 Calcium 9.4 mg/dL (8.5-10.5) 11/13/24 19:16 Total Bilirubin 0.6 mg/dL (0.15-1.2) 11/13/24 19:16 AST 28 U/L (0-32) 11/13/24 19:16 ALT 33 U/L (0-33) 11/13/24 19:16 Alkaline Phosphatase 85 U/L (35-105) 11/13/24 19:16 Total Protein 8.0 g/dL (6.6-8.7) 11/13/24 19:16 Albumin 3.9 g/dL (3.5-5.2) 11/13/24 19:16 Globulin 4.1 g/dL (1.3-4.6) 11/13/24 19:16 Procalcitonin 0.38 ng/mL (0-0.5) 11/13/24 19:16 Urine Color Yellow (Yellow) 11/13/24 17:54 Urine Appearance Turbid (CLEAR) A 11/13/24 17:54 Urine pH 5.5 (5-7) 11/13/24 17:54 Ur Specific [place] 1.015 (1.005-1.030) 11/13/24 17:54 Urine Protein 2+ (Negative) A 11/13/24 17:54 Urine Glucose (UA) Negative (Normal) 11/13/24 17:54 Urine Ketones Negative (Negative) 11/13/24 17:54 Urine Blood 2+ (Negative) A 11/13/24 17:54 Urine Nitrate Positive (Negative) A 11/13/24 17:54 Urine Bilirubin Negative (Negative) 11/13/24 17:54 Urine Urobilinogen 1.0 mg/dL (Negative) 11/13/24 17:54 Ur Leukocyte Esterase 3+ (Negative) A 11/13/24 17:54 Urine RBC 11-20 /hpf (0-2) H 11/13/24 17:54 Urine WBC >100 /hpf (0-5) H 11/13/24 17:54 Ur Squamous Epith Cells 11-20 /hpf (0-5) H 11/13/24 17:54 Amorphous Sediment Not Reportable 11/13/24 17:54 Urine Bacteria 4+ /hpf (NONE) H 11/13/24 17:54 Hyaline Casts 26.12 /lpf 11/13/24 17:54 Influenza A (PCR) Negative (Negative) 11/13/24 18:29 Influenza Type B (PCR) Negative (Negative) 11/13/24 18:29 RSV (PCR) Negative (Negative) 11/13/24 18:29 SARS-CoV-2 (PCR) Negative (Negative) 11/13/24 18:29 Discharge Plan Discharge Patient Disposition: Admitted As Inpatient Admit Provider: Viri Chapman Clinical Impression: Urinary tract infection, Acute metabolic encephalopathy, SHOAIB (acute kidney injury) Condition: Stable Coding Level of Care Code ED Hand Launderer for Terry Chaudhari
[2024-11-13 18:15] LABS: Glucose Urine UA Negative (Normal); Nitrate Urine Positive (Negative); Specific Gravity, Urine 1.015 (1.005-1.030)
[2024-11-13 18:20] LABS: Add Urine Microscopic? YES
[2024-11-13 18:23] LABS: UA Slide Review UA Slide Review Perf
--- NOTE | 2024-11-13 18:25 | XRR_ITS ---
PROCEDURE INFORMATION: Exam: XR Chest Exam date and time: 11/13/2024 6:51 PM Age: 74 years old Clinical indication: Prior surgery; Surgery date: 6+ months; Surgery type: Cervical fusion. Gb; Fever with general weakness; Additional info: Weakness, fever TECHNIQUE: Imaging protocol: Radiologic exam of the chest. Views: 1 view. COMPARISON: CT chest abdpel w/*[id number] 02/29/2024 4:24 AM FINDINGS: Lungs: Left lower lobe subtle opacity which is nonspecific but may be reflective of a infectious etiology such as pneumonia. Pleural spaces: Unremarkable. No pleural effusion. No pneumothorax. Heart/Mediastinum: Unremarkable. No cardiomegaly. Bones/joints: Cervical fusion plate and screws lower cervical spine. XR/XR chest 1V portable [id number] IMPRESSION: Left lower lobe subtle opacity which is nonspecific but may be reflective of a infectious etiology such as pneumonia.
[2024-11-13 19:20] LABS: Respiratory Syncytial Virus Ce NEGATIVE (Negative); SARS-CoV-2 PCR NEGATIVE (Negative)
[2024-11-13] MEDS: cefTRIAXone 1,000 mg SDV 1000 MG IVP (19:24)
[2024-11-13 19:25] VITALS: PULSE 104; O2SAT 92
[2024-11-13 19:31] VITALS: BP 127/74; PULSE 104; O2SAT 94
[2024-11-13 19:46] LABS: Alanine Aminotransferase 33 U/L (0-33); Albumin Level 3.9 g/dL (3.5-5.2); Alkaline Phosphatase 85 U/L (35-105); Anion Gap 18.8 (5-19); Aspartate Amino Transferase 28 U/L (0-32); Blood Urea Nitrogen 27 mg/dL (8-23); Calcium 9.4 mg/dL (8.5-10.5); Carbon Dioxide 25 mmol/L (22-29); Chloride 95 mmol/L (98-107); Globulin 4.1 g/dL (1.3-4.6); Glucose 198 mg/dL (65-115); Hematocrit 41.4 % (36-47); Hemoglobin 13.50 g/dL (11.27-16.99); Mean Corpuscular HGB Conc 32.6 g/dL (30-55); Mean Corpuscular Hemoglobin 30.1 pg (27-33); Mean Corpuscular Volume 92.4 fl (85-98); Nucleated Red Blood Cells % 0 %; Osmolality Calculated 289 mOsm/kg (285-295); Platelet Count 291 10^3/cmm (157-399); Potassium 4.8 mmol/L (3.5-5.1); Red Blood Count 4.48 10^6/uL (3.85-5.65); Sodium 134 mmol/L (136-145); Total Protein 8.0 g/dL (6.6-8.7); White Blood Count 14.24 10^3/uL (3.29-11.43)
[2024-11-13 19:48] LABS: Creatinine Clr Calc Pharmacy 35.2788
[2024-11-13 19:52] LABS: Procalcitonin 0.38 ng/mL (0-0.5)
--- NOTE | 2024-11-13 19:55 | CTR_ITS ---
PROCEDURE INFORMATION: Exam: CT Abdomen And Pelvis Without Contrast Exam date and time: 11/13/2024 8:19 PM Age: 74 years old Clinical indication: Fever and other: Uti/mathew; Prior surgery; Surgery date: 6+ months; Surgery type: Gb. Tubal; Fever with UTI and mathew. ; Additional info: Mathew, pyuria TECHNIQUE: Imaging protocol: Computed tomography of the abdomen and pelvis without contrast. Radiation optimization: All CT scans at this facility use at least one of these dose optimization techniques: automated exposure control; mA and/or kV adjustment per patient size (includes targeted exams where dose is matched to clinical indication); or iterative reconstruction. COMPARISON: CT chest abdpel w/*[id number] 02/29/2024 4:24 AM RADIATION DOSE METRICS: Total DLP (mGy-cm): 1054.85 FINDINGS: Lungs: Calcified granuloma in the right lower lobe incompletely visualized. Interval appearance of left lower lobe hazy opacities which is nonspecific but may be seen in pneumonia. Coronary arteries: Coarse coronary artery calcifications. Liver: Hepatic steatosis. Gallbladder and biliary ducts: Normal. No calcified stones. No ductal dilation. Pancreas: Normal. No ductal dilation. Spleen: Normal. No splenomegaly. Adrenal glands: Normal. No mass. Kidneys and ureters: Mild perinephric fat stranding in the perirenal fat which is similar to prior 02/29/2024. Pyelonephritis is a differential consideration. Correlate with urinalysis. Nonobstructing 9 mm calculus in the midpole of the left kidney similar to prior. No hydronephrosis or nephrolithiasis in either kidney. Stomach and bowel: Unremarkable. No obstruction. No mucosal thickening. Appendix: No evidence of appendicitis. Intraperitoneal space: No pelvic free fluid. Fatty calcification in the right lower quadrant of the abdomen similar to prior. Vasculature: Unremarkable. No abdominal aortic aneurysm. Lymph nodes: Unremarkable. No enlarged lymph nodes. Urinary bladder: Andrew catheter in place with decompressed bladder. Reproductive: Unremarkable as visualized. Bones/joints: Healed left 5th through 7th rib fractures. Severe degenerative disc disease L3-L4 L4-L5 and L5-S1. Soft tissues: Unremarkable. CT/CT abdomen pelvis wo con [id number] IMPRESSION: 1. Mild perinephric fat stranding in the perirenal fat which is similar to prior 02/29/2024. Pyelonephritis is a differential consideration. Correlate with urinalysis. 2. Nonobstructing 9 mm calculus in the midpole of the left kidney similar to prior. No hydronephrosis or nephrolithiasis in either kidney. 3. Interval appearance of left lower lobe hazy opacities which is nonspecific but may be seen in pneumonia. 4. Coarse coronary artery calcifications. 5. Hepatic steatosis.
[2024-11-13 20:07] VITALS: BP 113/59; PULSE 100; O2SAT 95
[2024-11-13] MEDS: acetaminophen 1,000 MG/100 ML PIGGYBACK 400 MG IV (20:37)
--- NOTE | 2024-11-13 20:48 | PC.NURSE ---
upon recheck temp, 102.0 at 2029, informed Guadalupe HAMILTON and 1g apap IV once ordered. recheck temp approximately 2124.
[2024-11-13 20:57] VITALS: BP 117/59; PULSE 92; O2SAT 94
[2024-11-13 21:19] VITALS: BP 137/67; PULSE 94; RESP 21; TEMP 36.9; O2SAT 93
[2024-11-13 21:30] VITALS: BMI 36.6
--- NOTE | 2024-11-13 22:09 | PM.HP ---
Providers/Chief Complaint Admitting Physician: Viri Chapman MD--- patient seen and evaluated before 12 midnight Primary Care Provider: Noemy Garcias MD Chief Complaint: possible uti History of Present Illness Marisa Jackson is a 74 year old female with a history of mild dementia but lives at home with her . Patient also has chronic indwelling Andrew catheter with chronic UTI. This time patient is presenting because of encephalopathy weakness not eating and having fever and weakness over the past 48 hours over the past 48 hours. Patient had not been able to eat anything on this day. Tmax at home was 101 ?F. Tmax here in the emergency room is 102 ?F. Patient also is noted to be in acute renal failure with a creatinine at baseline of 0.6 rising to a 1.8 here at presentation. Patient needs admission to be taken care of meets inpatient criteria for this 74-year-old female. Patient was on hospice and revoked the hospice and brought the patient to the emergency room to be treated. Patient has been pancultured from blood and urine and Andrew catheter that was changed a week ago according to the had now also been changed out to a new Andrew catheter.. The patient had been given an initial ceftriaxone in the emergency room. I have been called to evaluate patient for admission. Patient has UTI with sepsis/encephalopathy compounding with acute renal failure, not been able to eat. Patient meets inpatient criteria for at least to be treated for a minimum of 2 midnights Review of Systems Narrative: System review upon 10 organ review we are significant for generalized weakness not been able to eat and feeling of on wellness per the patient. relates that the patient has dementia but he relates an does well with communication and to articulate. Patient has been seen the last 2 days becoming quite encephalopathic. Medications/Allergies Home Medications ?Medication ?Instructions ?Recorded ?Confirmed ?Last Taken ?Type albuterol sulfate 2.5 mg/3 mL 2.5 mg inhalation Q4H PRN 03/17/19 03/01/24 Unknown History (0.083 %) solution for nebulization Shortness Of Breath Or Wheezing Lactobacillus 1 cap PO DAILY PRN use with 10/29/19 03/01/24 Unknown History acidophilus-Bifidobac.animalis 2 antibiotics billion cell capsule (One-A-Day Trubiotics) oezwpdlx-sut-icjbt acid 0.4 1 tab PO DAILY 10/29/19 03/01/24 02/28/24 History mg-lycopene 300 mcg-lutein 250 mcg tablet (Complete Multivitamin Adult 50 Plus) albuterol sulfate 90 mcg/actuation 2 puff inhalation Q6H PRN 01/26/20 03/01/24 Unknown Rx aerosol inhaler (ProAir HFA) shortness of breath or wheezing #8.5 grams acetaminophen 325 mg tablet 325 mg PO QID PRN pain or fever 02/29/24 02/29/24 02/24/24 History (Tylenol) carbamazepine 200 mg tablet 200 mg PO BID 02/29/24 02/29/24 02/28/24 History cholecalciferol (vitamin D3) 50 50 mcg PO DAILY 02/29/24 02/29/24 02/28/24 History mcg (2,000 unit) tablet (Vitamin D3) venlafaxine 75 mg tablet 75 mg PO BID 02/29/24 03/01/24 02/28/24 History fosfomycin tromethamine 3 gram 1 packet PO Q7D 03/01/24 03/01/24 Unknown History oral packet Held on 03/04/24. Instructions: as per ID at [facility] hydrochlorothiazide 25 mg tablet 25 mg PO QAM 03/01/24 03/01/24 02/28/24 07:00 History hydroxychloroquine 200 mg tablet 400 mg PO DAILY 03/01/24 03/01/24 02/28/24 07:00 History metformin 500 mg tablet,extended 500 mg PO DAILY 03/01/24 03/01/24 02/28/24 07:00 History release 24 hr phenylephrine 0.2 %-glycerin 0.25 2 drp ophthalmic (eye) BID PRN Dry 03/01/24 03/01/24 Unknown History % eye drops (Clear Eyes Sensitive) Eyes polyethylene glycol 3350 17 17 g PO BID PRN constapation 03/01/24 03/01/24 02/28/24 16:55 History gram/dose oral powder Allergies Allergy/AdvReac Type Severity Reaction Status Date / Time codeine AdvReac Severe ALTERED Verified 02/28/24 22:35 MENTAL STATUS shellfish derived AdvReac Unknown VOMITING Verified 02/28/24 22:35 AND DIARRHEA PFSH Acute PFSH: Medical History Carpal tunnel syndrome of left wrist 1994 Encounter for tubal ligation counseling Dyspnea Immunosuppression Osteoarthritis of carpometacarpal joint of left thumb Osteoarthritis of shoulders, bilateral Undifferentiated connective tissue disease Surgical History H/O Spinal surgery Hx of cholecystectomy H/O bladder repair surgery H/O lumpectomy BREAST ON LEFT 2001 H/O eye surgery TUMOR REMOVAL 197 H/O tubal ligation History of foot surgery RIGHT 1998 H/O adenoidectomy History of tonsillectomy History of knee replacement LEFT 2001 AND RIGHT 2002 History of bilateral knee arthroplasty Social History Smoking and tobacco/nicotine status: never used tobacco/nicotine Alcohol intake: never Vitals/I&O/Wt Last Vital Signs Temp 102 F H 11/13/24 17:47 Pulse 92 11/13/24 20:57 Resp 19 H 11/13/24 17:47 BP 117/59 11/13/24 20:57 Pulse Ox 94 11/13/24 20:57 O2 Del Method Nasal Cannula 11/13/24 21:30 O2 Flow Rate 2 11/13/24 19:31 11/13/24 11/13/24 11/13/24 06:59 14:59 22:59 Intake Total 100 / 100 Balance 100 / 100 Weight last 48 hrs Weight 102.784 kg Weight 117.934 kg Physical Exam Narrative: Generally patient is weak appearing and at the bedside rubbing her forehead in caring HEENT normocephalic/atraumatic patient weak appearing neck neck is supple cardiovascular heart rate is regular lungs are clear abdomen soft nontender nondistended unremarkable extremities are intact no edema has good pulses neurology he has no focality except patient being encephalopathic metabolically Data 11/13/24 19:16 11/13/24 19:16 Micro: Microbiology 11/13/24 19:07 Blood Culture - Preliminary Blood SPECIMEN COLLECTED 11/13/24 18:39 Blood Culture - Preliminary Blood SPECIMEN COLLECTED A&P Assessment and plan 1. SHOAIB (acute kidney injury): 2. Acute metabolic encephalopathy: 3. Urinary tract infection: 4. Recurrent UTI: 5. Dyspnea: 6. Dehydration: 7. Febrile illness: 8. Leukocytosis: Plan: UTI with encephalopathy/sepsis with febrile illness - Admit to general medical floor with telemetry - Continue with gentle hydration with normal saline - Patient had been pancultured from blood and from urine - I have initiated vancomycin and Zosyn on this patient to cover gram-positive notorious gram-negative's and anaerobic's History of dementia without behavioral - Patient is just encephalopathic from urinary tract infection, [place] - Continue IV hydration and IV antibiotics - Continue to reorient patient to time date and environment Febrile illness - Monitor a Tmax of 102 ?F in the ED - Patient had been pancultured from blood and urine follow cultures and optimize accordingly Dehydration - Continue gentle hydration Chronic indwelling Andrew catheter - Andrew catheter had been changed out for a new one - Continue to optimize underlying infection for care Acute renal failure - Rehydration is the mainstay and IV antibiotics Anorexia - Feed or advance diet starting with clear liquid diet when patient is able to GI and DVT prophylaxis in place PDMP PDMP Reviewed: Last Reviewed 11/14/24 04:50 by Viri Chapman MD Attestations Medical Necessity Statement*: Patient is with UTI febrile illness not able to eat or keep anything down and with encephalopathy and acute renal failure does meet inpatient criteria with date at least 2 midnights to optimize care. Coding Level of Care Code 33577 Diagnoses SHOAIB (acute kidney injury) N17.9 Acute metabolic encephalopathy G93.41 Urinary tract infection N39.0 Recurrent UTI N39.0 Dyspnea R06.00 Dehydration E86.0 Febrile illness R50.9 Leukocytosis D72.829 Time Spent (min) 70
--- NOTE | 2024-11-13 22:15 | PC.NURSE ---
Catheter Patient chronic brown catheter from home removed at this time. 10mL fluid removed from indwelling bulb and catheter removed intact. Patient tolerated well. Approximately 150mL cloudy yellow urine in catheter bag. New catheter to be placed per orders.
[2024-11-13] MEDS: heparin 5,000 unit/mL INJ 1 mL 5000 UNIT SUBCUT (23:25)
[2024-11-13] MEDS: piperacillin-tazobactam 3.375 GM in sodium chloride 0.9% (plus) 50 ML IV (23:26)
[2024-11-13] MEDS: pantoprazole 40 mg SDV IVP (23:26)
[2024-11-14] VITALS (10 sets, daily range): BP systolic 99–157; BP diastolic 62–79; PULSE 81–107; RESP 15–22; TEMP 36.8–37.3; O2SAT 93–96
[2024-11-14 05:12] LABS: Hematocrit 40.0 % (36-47); Hemoglobin 13.20 g/dL (11.27-16.99); Mean Corpuscular HGB Conc 33.0 g/dL (30-55); Mean Corpuscular Hemoglobin 30.7 pg (27-33); Mean Corpuscular Volume 93.0 fl (85-98); Nucleated Red Blood Cells % 0 %; Platelet Count 252 10^3/cmm (157-399); Red Blood Count 4.30 10^6/uL (3.85-5.65); White Blood Count 11.14 10^3/uL (3.29-11.43)
[2024-11-14 05:57] LABS: Alanine Aminotransferase 27 U/L (0-33); Albumin Level 3.8 g/dL (3.5-5.2); Alkaline Phosphatase 78 U/L (35-105); Anion Gap 16.6 (5-19); Aspartate Amino Transferase 24 U/L (0-32); Blood Urea Nitrogen 24 mg/dL (8-23); Calcium 8.9 mg/dL (8.5-10.5); Carbon Dioxide 25 mmol/L (22-29); Chloride 101 mmol/L (98-107); Globulin 3.8 g/dL (1.3-4.6); Glucose 201 mg/dL (65-115); Magnesium 2.1 mg/dL (1.7-2.3); Osmolality Calculated 296 mOsm/kg (285-295); Potassium 4.6 mmol/L (3.5-5.1); Sodium 138 mmol/L (136-145); Total Protein 7.6 g/dL (6.6-8.7)
[2024-11-14 06:19] LABS: Creatinine Clr Calc Pharmacy 45.2705
[2024-11-14] MEDS: piperacillin-tazobactam 3.375 GM in sodium chloride 0.9% (plus) 50 ML IV (06:33)
--- NOTE | 2024-11-14 06:43 | PHA.VACGOAL ---
Vancomycin Goal - Goal Vancomycin Goal:: 15-20 mg/L Vancomycin Indication:: Other - Therapy Current therapy:: Pip/Tazo Day of therpy:: Day []of [] . 1 Actual body weight (kg): 226 lb - Data Labs: WBC 11.14 10^3/uL (3.29-11.43) 11/14/24 05:00 RBC 4.30 10^6/uL (3.85-5.65) 11/14/24 05:00 Hgb 13.20 g/dL (11.27-16.99) 11/14/24 05:00 Hct 40.0 % (36-47) 11/14/24 05:00 MCV 93.0 fl (85-98) 11/14/24 05:00 MCH 30.7 pg (27-33) 11/14/24 05:00 MCHC 33.0 g/dL (30-55) 11/14/24 05:00 RDW 12.7 % (12.1-15.1) 11/14/24 05:00 Sodium 138 mmol/L (136-145) 11/14/24 05:00 Potassium 4.6 mmol/L (3.5-5.1) 11/14/24 05:00 Chloride 101 mmol/L (98-107) 11/14/24 05:00 Carbon Dioxide 25 mmol/L (22-29) 11/14/24 05:00 Anion Gap 16.6 (5-19) 11/14/24 05:00 BUN 24 mg/dL (8-23) H 11/14/24 05:00 Creatinine 1.3 mg/dL (0.5-0.9) H 11/14/24 05:00 GFR Calculation Not Reportable 11/14/24 05:00 Treatment plan:: new consult
[2024-11-14] MEDS: heparin 5,000 unit/mL INJ 1 mL 5000 UNIT SUBCUT ×2 (10:47→21:42)
[2024-11-14] MEDS: ondansetron 2 mg/ML SDV 2 mL 4 MG IVP (10:47)
[2024-11-14] MEDS: cefTRIAXone 1,000 mg SDV 1000 MG IVP (10:47)
--- NOTE | 2024-11-14 12:05 | PC.CHAP ---
Pastoral Care Encounter/Spiritual Assessment Type of Contact [] Declined twist packer visit [] Patient/Family/Request visit [] Outpatient visit [] Follow-up visit [] Physician referral [] Code/Alert [x] Routine visit [] Staff referral [] Actively dying [] Patient sleeping [] Family support [] [] Out of room [] Palliative care [] [] Receiving care in room [] Pre-surgical visit [] Trauma [] Long length of stay [] ICU visit [] Other: /Food Service No Prayer Relational/Emotional Strength [] Patient feels connected with others/family/visitors/staff [] Distress [] Loneliness/isolation [] Abandonment Spirituality of Patient [x] Person of Violeta [x] Attends Pentecostalism of their Violeta [x] Believes in Prayer [x] Reads Bible or Moravian materials [] There are Spiritual issues to be addressed Rn Traveling Interventions [] Prayer [x] Active listening [x] Non-anxious presence [] Spiritual/emotional support [] Crisis/trauma care [] Spiritual counseling [] Bereavement support [] Provided bereavement packet [] Provided Bible/devotional materials [] Provided toy/stuffed animal, coloring book to patient or family member [] Provided Communion [] Anointing/[employer] [] Salvation [] Completed spiritual assessment [] Other: Impact on Illness or Injury [] Angry [] Fearful [] Anxious [] Often cries [] Exhaustion [] Unable to work [] Unable to attend orthodoxy [] Unable to walk/stand [] Unable to read [] Unable to drive [] Unable to eat/drink [] Unable to sleep [] Unable to be with family [] Patient intubated [] Other: Summary Time spent with patient 20
[2024-11-14] MEDS: haloperidol inj 5 mg/mL INJ 1 mL 2.5 MG IVP (12:06)
--- NOTE | 2024-11-14 17:30 | P.PN_ITS ---
Subjective 2 Subjective: 74-year-old female with terrie ia previously on hospice which was revoked. Christiano is her but not currently present at bedside. Patient has long history of UTI with chronic indwelling Andrew. Patient recently living at home last 48 hours prior to admission increased fatigue, temperature up to 101 not eating ambulating. Patient was confused consistent with previous UTI. Patient tells me that she lives at her home in [facility]. She admits that she is confused when she awakens in the morning but it was afternoon. She tells me that she is lives with her in [place] on further questioning. Vitals/I&O/Wt Last Vital Signs Temp 99.2 F 11/14/24 15:57 Pulse 81 11/14/24 15:57 Resp 20 H 11/14/24 15:57 BP 136/75 11/14/24 15:57 Pulse Ox 96 11/14/24 15:57 O2 Del Method Nasal Cannula 11/14/24 15:57 O2 Flow Rate 3 11/13/24 21:19 11/14/24 11/14/24 11/14/24 06:59 14:59 22:59 Intake Total 670 / 1770 1620 / 1620 Output Total 950 / 1100 800 / 800 Balance -280 / 670 820 / 820 Weight last 48 hrs Weight 102.512 kg Weight 102.784 kg Weight 117.934 kg Physical Exam 2 Narrative: General well-developed obese female in bed. She is in no acute distress CV regular rate and rhythm with a 5/6 systolic ejection murmur best heard at the right upper sternal border Lungs clear to auscultation but poor cooperation with exam and she was unable to sit up. Abdomen positive bowel tones soft nontender Calves no tenderness cords pretibial edema Skin is damp diaphoretic warm Mentation alert and oriented to person but not place or date she thought that she was at her own home in [facility] Urinary Catheter Management: Andrew: Cath Placed During This Visit: yes Reason for Continuing Indwelling Catheter: Chronic Indwelling Urinary Catheter on Admission Urinary Catheter Date of Insertion: 11/13/24 Urinary Catheter Time of Insertion: 23:45 Data 11/14/24 05:00 11/14/24 05:00 Micro: Microbiology 11/13/24 19:07 Blood Culture - Preliminary Blood SPECIMEN COLLECTED 11/13/24 18:39 Blood Culture - Preliminary Blood SPECIMEN COLLECTED A&P Assessment and plan 1. SHOAIB (acute kidney injury): Hydrate leave Andrew in additional night treat UTI 2. Acute metabolic encephalopathy: Improved 3. Urinary tract infection: Will treat with Rocephin. We do not have history of resistant pathogen. Last culture February 2024 was no growth 4. Recurrent UTI: Last culture February 2024 was no growth. Patient showed pyelonephritis by CT scan. Will discuss with why she has a chronic indwelling Andrew and potentially remove it PDMP PDMP Reviewed: Not Reviewed Attestations 2 Medical Necessity Statement*: Patient remains in the hospital for pyelonephritis with altered mental status and will require additional midnight Coding Level of Care Code 35338 Diagnoses SHOAIB (acute kidney injury) N17.9 Acute metabolic encephalopathy G93.41 Urinary tract infection N30.01 Hematuria presence: with hematuria Urinary tract infection type: acute cystitis Recurrent UTI N39.0 Time Spent (min) 35
[2024-11-14] MEDS: pantoprazole 40 mg SDV IVP (21:42)
[2024-11-14] MEDS: morphine 4 mg/mL SDV 1 mL 2 MG IVP (21:44)
[2024-11-15] VITALS (13 sets, daily range): BP systolic 112–152; BP diastolic 60–74; PULSE 75–143; RESP 15–43; TEMP 36.8–36.9; O2SAT 91–99
[2024-11-15 06:10] LABS: Anion Gap 15.0 (5-19); Blood Urea Nitrogen 18 mg/dL (8-23); Calcium 8.3 mg/dL (8.5-10.5); Carbon Dioxide 21 mmol/L (22-29); Chloride 102 mmol/L (98-107); Creatinine Clr Calc Pharmacy 73.4602; Glucose 173 mg/dL (65-115); Osmolality Calculated 284 mOsm/kg (285-295); Potassium 4.0 mmol/L (3.5-5.1); Sodium 134 mmol/L (136-145)
[2024-11-15] MEDS: cefTRIAXone 1,000 mg SDV 1000 MG IVP (08:54)
[2024-11-15] MEDS: heparin 5,000 unit/mL INJ 1 mL 5000 UNIT SUBCUT (11:31)
[2024-11-15] MEDS: FUROsemide 10 mg/mL SDV 2mL 20 MG IVP (13:06)
--- NOTE | 2024-11-15 13:07 | ECG_ITS ---
[facility] Date: 2024-[facility]-15 Pat Name: Marisa Jackson Department: Room: 268 Gender: Female Rn Cvicu: : 1950 Requested By: Saleem Rashid Order Number: [id number] Philip MD: Hal Conway M.D. Measurements Intervals [place] Rate: 146 P: 0 WA: 0 QRS: 9 QRSD: 91 T: 28 QT: 339 QTc: 530 Interpretive Statements INDEERMINATE RHYTHM TECHNICALLY POOR TRACING - PLEASE REPEAT ECG LOW QRS VOLTAGE IN PRECORDIAL LEADS [QRS DEFLECTION < 1.0 mV IN CHEST LEADS] NONSPECIFIC ST & T-WAVE ABNORMALITY ABNORMAL ECG Compared to ECG 09/19/2017 21:06:46 Low QRS voltage now present Possible ischemia no longer present T-wave INVERSIONS DECREASED Electronically Signed On 11-15-2024 14:35:05 CDT by Hal Conway M.D. [email or web address]
--- NOTE | 2024-11-15 13:14 | XRR_ITS ---
PROCEDURE INFORMATION: Exam: XR Chest Exam date and time: 11/15/2024 1:17 PM Age: 74 years old Clinical indication: Shortness of breath; Additional info: Respiratory distress. TECHNIQUE: Imaging protocol: Radiologic exam of the chest. Views: 1 view. COMPARISON: CR (CHEST, ) 11/13/2024 6:51 PM FINDINGS: Lungs: Interval development of mnlt-if-elpfqglv interstitial thickening bilaterally, relatively increased in the right upper lung. Pleural spaces: Increased density in the left costophrenic angle and left lung base. Heart/Mediastinum: Unchanged cardiomegaly. Prominent mediastinum is unchanged. Bones/joints: Fixation devices in the lower cervical spine again noted. XR/XR chest 1V portable [id number] IMPRESSION: 1. Interval development of hxab-ar-koguisdm interstitial thickening bilaterally, relatively increased in the right upper lung. Diffuse appearance favors pulmonary edema, although other inflammatory conditions/pneumonia are not excluded. 2. Increased density in the left costophrenic angle and left lung base. The finding may relate to the enlarged cardiac silhouette, but underlying pleural fluid or consolidation could be present.
--- NOTE | 2024-11-15 13:35 | PM.PN ---
Subjective Subjective: 74-year-old female with dementia previously on hospice which was revoked. Patient companied by her daughter Marguerite this late morning. Christiano is a underwriting manager at [employer] and so will be in later today. Patient developed respiratory distress and lung exam consistent with right upper upper lung crackles possible aspiration pneumonia. Patient with temperature of 101. Christiano has returned to the hospital and he tells me that [facility] and then to rehab for antibiotics related to urinary tract infection. She decided that she want to be on hospice did not want to live like that anymore. She is was noted to have told hospice that she did want to live like this anymore either. Daughter Marguerite and patient's present and determined that comfort care is appropriate. Other option was to transfer to ICU on BiPAP and escalate antibiotics with anticipated need for additional long term facility. Christiano states he is certain that that is not what she wants Vitals/I&O/Wt Last Vital Signs Temp 98.4 F 11/15/24 11:33 Pulse 88 11/15/24 11:33 Resp 18 11/15/24 11:33 BP 152/74 11/15/24 11:33 Pulse Ox 91 11/15/24 11:33 O2 Del Method Room Air 11/15/24 11:33 O2 Flow Rate 3 11/15/24 08:00 11/14/24 11/15/24 11/15/24 22:59 06:59 14:59 Intake Total 1050 / 2670 1163.334 / 3833.334 Output Total 800 / 1600 700 / 2300 Balance 250 / 1070 463.334 / 1533.334 Weight last 48 hrs Weight 102.512 kg Weight 102.512 kg Weight 102.784 kg Weight 117.934 kg Physical Exam Narrative: General well-developed obese female in bed. She is in no acute distress CV regular rate and rhythm with a 5/6 systolic ejection murmur best heard at the right upper sternal border Lungs coarse rhonchi and crackles right upper lung. Fine crackles right mid lower lung field and left lower lung Abdomen positive bowel tones soft nontender Back no flank tenderness Calves no tenderness cords pretibial edema Skin is damp diaphoretic warm Earlier this morning mentation alert and oriented to person but not place or date she thought that she was at her own home in [facility]. She did recognize her daughter Marguerite at bedside and would ask Marguerite for assistance on answers to the above questions Currently patient is in distress on BiPAP Urinary Catheter Management: Andrew: Cath Placed During This Visit: yes Reason for Continuing Indwelling Catheter: Other Urinary Catheter Date of Insertion: 11/13/24 Urinary Catheter Time of Insertion: 23:45 Data 11/14/24 05:00 11/15/24 05:05 Micro: Microbiology 11/13/24 17:54 Urine Culture - Preliminary Urine,Clean Catch Gram Negative Rods 11/13/24 19:07 Blood Culture - Preliminary Blood NEGATIVE TO DATE 11/13/24 18:39 Blood Culture - Preliminary Blood NEGATIVE TO DATE A&P Assessment and plan 1. SHOAIB (acute kidney injury): Diuretic dose 20 mg given leave Andrew in for comfort kidney injury has resolved 2. Acute metabolic encephalopathy: Improved but now in respiratory distress 3. Urinary tract infection: Discontinue antibiotics due to comfort care 4. Recurrent UTI: Last culture February 2024 was no growth. Patient showed pyelonephritis by CT scan. Will discuss with why she has a chronic indwelling Andrew and potentially remove it As above switching to comfort care PDMP PDMP Reviewed: Not Reviewed Attestations Medical Necessity Statement*: Patient is transition to comfort care. Will remain in the hospital with arrangements sought for hospice care Coding Level of Care Code Acute Code for [facility] Fwd Diagnoses SHOAIB (acute kidney injury) N17.9 Acute metabolic encephalopathy G93.41 Urinary tract infection N30.01 Hematuria presence: with hematuria Urinary tract infection type: acute cystitis Recurrent UTI N39.0 Time Spent (min) 50
[2024-11-15] MEDS: LORazepam 1 MG/0.5 ML injection IVP ×2 (13:40→16:21)
[2024-11-15] MEDS: morphine 4 mg/mL SDV 1 mL 2 MG IVP (14:05)
--- NOTE | 2024-11-15 15:01 | PC.NURSE ---
Notified Dr. Mg [id number] patient was Wheezing. Fluids had already been stopped by Night Doctor, jahaira gonzalez ordered. Maybe need some lasix for patient. Dr. Mg read at 0741.
--- NOTE | 2024-11-15 15:03 | PC.NURSE ---
Stated to Dr. Mg in morning rounds patient sounds wheezy, fluids had been stopped maybe need some lasix. Breathing is harder for her.
--- NOTE | 2024-11-15 15:04 | PC.NURSE ---
Notified Dr. Mg patients is here. Patient is very diaphoretic and breathing is harder than previously.
[2024-11-15] MEDS: atropine 1% op soln 2 mL Btl 3 DROP SUBLINGUAL ×2 (15:10→19:50)
[2024-11-15] MEDS: morphine 10 mg/0.5 mL oral liq UD SUBLINGUAL ×2 (15:26→20:06)
--- NOTE | 2024-11-15 15:42 | PC.NURSE ---
Walked in patients room. Patient was very diphoretic and having a hard time breathing and appears to be in respiratory distress. Charge nurse called Dr. Mg. Dr. Mg ordered EKG, 20 mg IV Lasix, Bipap and came to room to see patient. Dr. Mg also ordered Ativan 1mg IVP now. Repiratory came to room to place Bipap on patient.
--- NOTE | 2024-11-15 15:45 | PC.NURSE ---
Patients vitals at time of distress temp 100.2, BP 155/87, heart rate 155 and blood sugar 193 respirations approximately 30-34
[2024-11-15] MEDS: morphine 4 mg/mL SDV 1 mL IVP ×4 (20:26→23:47)
[2024-11-16] VITALS (29 sets, daily range): BP systolic 115–159; BP diastolic 71–98; PULSE 92–122; RESP 15–29; TEMP 36.6–37.2; O2SAT 85–93
[2024-11-16] MEDS: morphine 4 mg/mL SDV 1 mL IVP ×24 (00:31→23:21)
[2024-11-16] MEDS: atropine 1% op soln 2 mL Btl 3 DROP SUBLINGUAL ×4 (08:27→20:48)
--- NOTE | 2024-11-16 11:28 | PC.SOCIAL ---
*IMM* Patient family received copy of IMM, dated, initialled and placed in chart.
[2024-11-16] MEDS: glycopyrrolate 0.2 mg/mL SDV 2 mL IV ×2 (15:04→19:25)
--- NOTE | 2024-11-16 15:06 | P.PN_ITS ---
Subjective 2 Subjective: Hospital course, labs appreciated. Seen with multiple family members at bedside. Patient on comfort care. Vitals/I&O/Wt Last Vital Signs Temp 98.4 F 11/16/24 11:13 Pulse 106 H 11/16/24 11:13 Resp 24 H 11/16/24 14:48 BP 158/98 11/16/24 11:13 Pulse Ox 93 11/16/24 11:13 O2 Del Method Nasal Cannula 11/16/24 11:13 O2 Flow Rate 3 11/15/24 08:00 FiO2 90 11/15/24 13:10 11/16/24 11/16/24 11/16/24 06:59 14:59 22:59 Output Total 275 / 1175 Balance -275 / -1175 Weight last 48 hrs Weight 103.238 kg Weight 102.512 kg Physical Exam 2 Narrative: Examination deferred given comfort care status Urinary Catheter Management: Andrew: Cath Placed During This Visit: yes Reason for Continuing Indwelling Catheter: Hospice/Comfort/Palliative Care Urinary Catheter Date of Insertion: 11/13/24 Urinary Catheter Time of Insertion: 23:45 Data 11/14/24 05:00 11/15/24 05:05 Micro: Microbiology 11/13/24 17:54 Urine Culture - Final Urine,Clean Catch Klebsiella oxytoca A&P Assessment and plan 1. SHOAIB (acute kidney injury): Diuretic dose 20 mg given leave Andrew in for comfort kidney injury has resolved 2. Acute metabolic encephalopathy: Improved but now in respiratory distress 3. Urinary tract infection: Discontinue antibiotics due to comfort care 4. Recurrent UTI: Last culture February 2024 was no growth. Patient showed pyelonephritis by CT scan. Will discuss with why she has a chronic indwelling Andrew and potentially remove it Plan for the day: Continue with comfort care measures. Case management team alerted. PDMP PDMP Reviewed: Not Reviewed Attestations 2 Medical Necessity Statement*: Requires further hospitalization for comfort care status. Diagnoses SHOAIB (acute kidney injury) N17.9 Acute metabolic encephalopathy G93.41 Urinary tract infection N30.01 Hematuria presence: with hematuria Urinary tract infection type: acute cystitis Recurrent UTI N39.0
[2024-11-17] VITALS (9 sets, daily range): BP systolic 0–143; BP diastolic 0–75; PULSE 0–115; RESP 0–22; TEMP -17.7–38.1; O2SAT 0–86
[2024-11-17] MEDS: morphine 4 mg/mL SDV 1 mL IVP ×7 (00:16→06:51)
[2024-11-17] MEDS: atropine 1% op soln 2 mL Btl 3 DROP SUBLINGUAL ×2 (01:13→06:32)
[2024-11-17] MEDS: glycopyrrolate 0.2 mg/mL SDV 2 mL IV ×2 (02:08→06:34)
[2024-11-17] MEDS: morphine 10 mg/0.5 mL oral liq UD SUBLINGUAL ×2 (05:13→06:19)
--- NOTE | 2024-11-17 07:07 | PC.NURSE ---
Patient passed at 0702
--- NOTE | 2024-11-17 08:18 | PM.DDS ---
Discharge Providers DDS Date of Admission: 11/13/24 20:18 Date Summary Completed: 11/17/24 Attending Provider at Admission: Viri Chapman MD Attending Provider at Discharge: Lewis Tapia MD Primary Care Provider: Noemy Garcias MD DS Diagnoses Hospital Diagnoses 1. SHOAIB (acute kidney injury): 2. Acute metabolic encephalopathy: 3. Urinary tract infection: Qualifiers: Hematuria presence: with hematuria Urinary tract infection type: acute cystitis Qualified Code(s): N30.01 - Acute cystitis with hematuria 4. Recurrent UTI: Reason for Visit Reason for Visit possible uti Summary Summary Summary: Per HPI Marisa Jackson is a 74 year old female with a history of mild dementia but lives at home with her . Patient also has chronic indwelling Andrew catheter with chronic UTI. This time patient is presenting because of encephalopathy weakness not eating and having fever and weakness over the past 48 hours over the past 48 hours. Patient had not been able to eat anything on this day. Tmax at home was 101 ?F. Tmax here in the emergency room is 102 ?F. Patient also is noted to be in acute renal failure with a creatinine at baseline of 0.6 rising to a 1.8 here at presentation. Patient needs admission to be taken care of meets inpatient criteria for this 74-year-old female. Patient was on hospice and revoked the hospice and brought the patient to the emergency room to be treated. Patient has been pancultured from blood and urine and Andrew catheter that was changed a week ago according to the had now also been changed out to a new Andrew catheter.. The patient had been given an initial ceftriaxone in the emergency room. I have been called to evaluate patient for admission. Patient has UTI with sepsis/encephalopathy compounding with acute renal failure, not been able to eat. Patient meets inpatient criteria for at least to be treated for a minimum of 2 midnights Patient was admitted to the hospital further evaluation and management of encephalopathy in setting of UTI and sepsis along with significant dementia. She was started on broad-spectrum IV antibiotics. During hospitalization patient had an event of aspiration pneumonia leading to respiratory distress. At that time goals of care discussions were done with patient's DPOA/ who decided patient to place back on hospice care/comfort care. While being on comfort care patient at 07:02 a.m. on 11/17 with family at bedside. Additional Data Confirmation of as documented by pronouncing clinician: no pulse, no respirations, no heart sounds and pupils fixed and dilated Family: at bedside Additional persons at bedside: nursing staff Attending/PCP notified?: I am attending Was code activated?: No Autopsy requested?: No Advance directives?: Yes Hospice patient?: Yes Discharge Plan Discharge Patient Disposition: Condition: Stable Probable Cause of Probable cause of : Aspiration into airway DS Attestations Time Spent in /Discharge Care*: greater than 30 min Quality - AMI: AMI present?: No Quality - Stroke: CVA present?: No Symptom Onset Unknown: No Quality - VTE: VTE present?: No Deep Vein Thrombosis/Pulmonary Embolism Present on Admission: No Coding Level of Care Code 44457 Total time (in minutes) for Discharge: 50 Diagnoses SHOAIB (acute kidney injury) N17.9 Acute metabolic encephalopathy G93.41 Urinary tract infection N30.01 Hematuria presence: with hematuria Urinary tract infection type: acute cystitis Recurrent UTI N39.0
--- NOTE | 2024-11-17 10:00 | PC.NURSE ---
Patient passed at 0702 with at bedside. Post care completed. MTS notified. Patient now being picked up by Karri Marsh
== END 2024-11-17 10:02 | disposition home or self-care (01) | DRG 871 ==
LOC: ER 20:08 → MEDSURG 20:36
PROVIDERS: Internal Medicine; Admitting Provider Internal Medicine; Emergency Provider Physician Assistant; PCP Family Medicine; Visit Provider Student in an Organized Health Care Education/Training Program
DX: A41.9 Sepsis, unspecified organism (principal); G93.41 Metabolic encephalopathy; J69.0 Pneumonitis due to inhalation of food and vomit; N30.01 Acute cystitis with hematuria; N17.9 Acute kidney failure, unspecified; N12 Tubulo-interstitial nephritis, not specified as acute or chronic; T83.511A Infection and inflammatory reaction due to indwelling urethral catheter, initial encounter; R65.20 Severe sepsis without septic shock; Z51.5 Encounter for palliative care; F03.90 Unspecified dementia, unspecified severity, without behavioral disturbance, psychotic disturbance, mood disturbance, and anxiety; Z90.49 Acquired absence of other specified parts of digestive tract; Z96.653 Presence of artificial knee joint, bilateral; R01.1 Cardiac murmur, unspecified; E86.0 Dehydration; R63.0 Anorexia; Z68.36 Body mass index [BMI] 36.0-36.9, adult; Z87.440 Personal history of urinary (tract) infections; X58.XXXA Exposure to other specified factors, initial encounter
CPT/HCPCS: 36415; 36416; 51702; 71045; 74176; 80048; 80053; 81001; 82962; 83735; 84100; 84145; 85025; 87040; 87077; 87086; 87186; 87637; 93005; 94640; 94660; 96372; 96374; 96375; 99285; J0131; J0696; J1630; J1644; J1815; J1938; J2060; J2270; J2405; J2470; J2543; J3373; J3490; J7030; J9999